=== PATIENT | female | born 1970 | race Caucasian/White ===

== ENCOUNTER 2016-08-29 20:34 | Inpatient (IN) ==
--- NOTE | 2016-08-29 20:56 | Emergency Department Note ---
Disposition Clinical Impression: Depression Qualifiers: Depression Type: unspecified Qualified Code(s): F32.9 - Major depressive disorder, single episode, unspecified Disposition: Admitted As Inpatient Condition: Good Referrals: NO,PCP [Primary Care Provider] - Forms: ED Satisfaction Letter Psych HPI - General Chief Complaint: ED Psychiatric Symptoms Stated Complaint: SI/UTI Time Seen by Provider: 08/29/16 20:44 Source: patient Nursing Notes Reviewed: Yes Vital Signs Reviewed: Yes - History of Present Illness HPI Narrative: 46-year-old female with a history of diabetes, hypertension, hyperlipidemia presents to the emergency Department with the chief complaint of depression, anxiety and thoughts of suicide. Patient states her depression has gotten out of control recently due to her many health problems. Denies any specific plan. She denies ever being evaluated for this in the hospital before. Denies any ingestions. Denies any drug or alcohol use. She reports some dysuria for the last 2-3 days and thinks she has a UTI. No fevers or chills, abdominal pain, nausea or vomiting. - Related Data Home Medications Medication Instructions Recorded Confirmed Alprazolam [Xanax 1 MG Tablet] 1 mg PO QID #0 03/17/15 05/11/16 Omeprazole [PriLOSEC] 40 mg PO DAILY 03/17/15 05/11/16 Zolpidem [Ambien] 10 mg PO HS 03/17/15 05/11/16 Albuterol Sulfate [Proair Hfa] 2 puff IH Q4H PRN 03/16/16 05/11/16 Venlafaxine HCl [Effexor Xr] 225 mg PO DAILY 05/11/16 05/11/16 Previous Rx's Medication Instructions Recorded Budesonide/Formoterol 160/4.5 2 puff IH BIDR #1 inhaler 12/08/15 [Symbicort 160/4.5] Gabapentin [Neurontin] 600 mg PO TID #90 tablet 12/08/15 Ipratropium/Albuterol Neb [Duoneb] 3 ml IH Q6H PRN #100 inhsol 03/17/16 Aspirin 81 mg PO DAILY #30 tab.chew 05/12/16 Atorvastatin [Lipitor] 40 mg PO HS #30 tablet 05/12/16 Isosorbide MONOnitrate (24 HR) 30 mg PO DAILY #30 tab.er.24h 05/12/16 [Imdur] Metoprolol [Lopressor] 25 mg PO BID #60 tablet 05/12/16 Hydrocodone/Acetaminophen [[place] 1 tab PO Q6H PRN #8 tab 06/29/16 5-325 Tablet] Nitrofurantoin (BID) [Macrobid] 100 mg PO BID 5 Days 07/10/16 Allergies Allergy/AdvReac Type Severity Reaction Status Date / Time clindamycin Allergy Hives Verified 08/29/16 20:35 ketorolac [From Toradol] AdvReac Migraine Verified 08/29/16 20:35 tramadol AdvReac Vomiting Verified 08/29/16 20:35 codeine Allergy Unknown Difficulty Uncoded 07/30/16 23:31 Breathing nsaids Allergy Unknown Difficulty Uncoded 07/30/16 23:31 Breathing All systems ED: reviewed and negative except as stated. 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 S1, S2. No murmurs, rubs or gallops. Respiratory: Breath sounds clear bilaterally. No wheezing, rales or rhonchi. No resp distress Abdomen: Mild suprapubic discomfort without any rebound, guarding or rigidity. No upper tenderness. No palpable organomegaly. Eyes: Conjunctiva clear HENT: Normocephalic, no signs of head injury. No oral mucosal lesions. Moist mucous membranes Neuro: Alert and oriented 3, stands and lives independently Musculoskeletal: No joint tenderness or swelling Skin: No signs of self-harm or IV drug use Psych: Somewhat depressed but otherwise Appropriate - General Limitations: no limitations General appearance: alert, in no apparent distress Course Course Narrative: No evidence of urinary tract infection. Patient has been calm and comfortable. I find no medical abnormalities. She was cleared by myself and attending physician. After being evaluated by the psychiatry team they recommended admission to help with her depression and hopelessness. Vital Signs Temperature 99.3 F 08/29/16 20:36 Pulse Rate 96 08/29/16 20:36 Respiratory Rate 20 08/29/16 20:36 Blood Pressure 127/86 08/29/16 20:36 O2 Sat by Pulse Oximetry 98 08/29/16 20:36 Temperature 99.3 F 08/29/16 20:36 Pulse Rate 96 08/29/16 20:36 Respiratory Rate 20 08/29/16 20:36 Blood Pressure 127/86 08/29/16 20:36 O2 Sat by Pulse Oximetry 98 08/29/16 20:36 Oxygen Delivery Oxygen Delivery Room Air Psych - Lab Data Result diagrams: 08/29/16 21:06 08/29/16 21:06 Lab Results 08/29/16 08/29/16 08/29/16 Range/Units 20:50 20:50 20:50 WBC (4.3-11.1) K/mcL RBC (3.82-4.97) M/mcL Hgb (11.5-15.4) g/dL Hct (35.3-44.9) % MCV (83.0-100.0) fL MCH (28.0-33.3) pg MCHC (31.6-35.5) g/dL RDW (11.5-14.5) % Plt Count (140-400) K/mcL MPV (9.4-12.4) fL Immature Gran % (0-4) % Seg Neutrophils % % Lymphocytes % % Monocytes % % Eosinophils % % Basophils % % Neutrophils # (1.6-8.9) K/mcL Lymphocytes # (0.6-4.6) K/mcL Monocytes # (0.0-1.3) K/mcL Eosinophils # (0.0-0.6) K/mcL Basophils # (0.0-0.2) K/mcL Sodium (136-145) mEq/L Potassium (3.5-4.5) mEq/L Chloride (98-109) mEq/L Carbon Dioxide (19-29) mEq/L BUN (7-20) mg/dL Creatinine (0.57-1.11) mg/dL Est GFR ( Amer) (> 60) Est GFR (Non-Af Amer) (> 60) BUN/Creatinine Ratio (6-26) Glucose (70-99) mg/dL Calculated Osmolality (280-300) Calcium (8.6-10.8) mg/dL Urine Color Yellow (Yellow) Urine Clarity Clear (Clear) Urine pH 6.0 (5.0-8.0) pH Units Ur Specific [place] 1.023 (1.010-1.025) Urine Protein Negative (Neg-Trace) mg/dL Urine Glucose (UA) Normal (Normal) mg/dL Urine Ketones Negative (Negative) mg/dL Urine Blood Negative (Negative) Urine Nitrite Negative (Negative) Urine Bilirubin Negative (Negative) Urine Urobilinogen Normal (Normal) mg/dL Ur Leukocyte Esterase Small H (Negative) Urine Microscopic RBC 3-5 H (0-3) per hpf Urine Microscopic WBC 3-5 H (0-3) per hpf Ur Squamous Epith Cells Many H (None-Few) per lpf Urine Bacteria None Seen (None-Few) per hpf Hyaline Casts None Seen (None-Few) per lpf Urine Test Negative (Negative) Salicylates (15-30) mg/dL Urine Opiates Screen Negative (Vkhizv=597) ng/mL Acetaminophen (10-30) mcg/mL Ur Barbiturates Screen Negative (Tdgfoc=076) ng/mL Ur Phencyclidine Scrn Negative (Cutoff=25) ng/mL Ur Amphetamines Screen Negative (Rvxpte=4356) ng/mL U Benzodiazepines Scrn Positive H (Ramcbi=973) ng/mL Urine Cocaine Screen Negative (Cutoff= 300) ng/mL U Marijuana (THC) Screen Negative (Cutoff = 50) ng/mL Ethyl Alcohol (0-10) mg/dL 08/29/16 08/29/16 08/29/16 Range/Units 21:06 21:06 21:06 WBC 11.0 (4.3-11.1) K/mcL RBC 4.06 (3.82-4.97) M/mcL Hgb 11.1 L (11.5-15.4) g/dL Hct 34.0 L (35.3-44.9) % MCV 83.7 (83.0-100.0) fL MCH 27.3 L (28.0-33.3) pg MCHC 32.6 (31.6-35.5) g/dL RDW 14.7 H (11.5-14.5) % Plt Count 367 (140-400) K/mcL MPV 10.1 (9.4-12.4) fL Immature Gran % 0.5 (0-4) % Seg Neutrophils % 63.4 % Lymphocytes % 29.5 % Monocytes % 5.5 % Eosinophils % 0.7 % Basophils % 0.4 % Neutrophils # 7.0 (1.6-8.9) K/mcL Lymphocytes # 3.3 (0.6-4.6) K/mcL Monocytes # 0.6 (0.0-1.3) K/mcL Eosinophils # 0.1 (0.0-0.6) K/mcL Basophils # 0.0 (0.0-0.2) K/mcL Sodium 136 (136-145) mEq/L Potassium 4.0 (3.5-4.5) mEq/L Chloride 101 (98-109) mEq/L Carbon Dioxide 24 (19-29) mEq/L BUN 21 H (7-20) mg/dL Creatinine 1.22 H (0.57-1.11) mg/dL Est GFR ( Amer) 57 L (> 60) Est GFR (Non-Af Amer) 47 L (> 60) BUN/Creatinine Ratio 17 (6-26) Glucose 136 H (70-99) mg/dL Calculated Osmolality 287 (280-300) Calcium 9.3 (8.6-10.8) mg/dL Urine Color (Yellow) Urine Clarity (Clear) Urine pH (5.0-8.0) pH Units Ur Specific [place] (1.010-1.025) Urine Protein (Neg-Trace) mg/dL Urine Glucose (UA) (Normal) mg/dL Urine Ketones (Negative) mg/dL Urine Blood (Negative) Urine Nitrite (Negative) Urine Bilirubin (Negative) Urine Urobilinogen (Normal) mg/dL Ur Leukocyte Esterase (Negative) Urine Microscopic RBC (0-3) per hpf Urine Microscopic WBC (0-3) per hpf Ur Squamous Epith Cells (None-Few) per lpf Urine Bacteria (None-Few) per hpf Hyaline Casts (None-Few) per lpf Urine Test (Negative) Salicylates < 5.0 L (15-30) mg/dL Urine Opiates Screen (Wrcogm=901) ng/mL Acetaminophen 1.0 L (10-30) mcg/mL Ur Barbiturates Screen (Riyehc=010) ng/mL Ur Phencyclidine Scrn (Cutoff=25) ng/mL Ur Amphetamines Screen (Iswcbx=2180) ng/mL U Benzodiazepines Scrn (Tvjmew=729) ng/mL Urine Cocaine Screen (Cutoff= 300) ng/mL U Marijuana (THC) Screen (Cutoff = 50) ng/mL Ethyl Alcohol < 10 (0-10) mg/dL Psychiatric Medical Clearance - Medical Clearance Checklist Does the patient have a NEW psychiatric condition?: No Any abnormalities indicating possible medical illness?: No Any history of medical issues?: Yes (Depression and anxiety) Medical History: No Social History Section defined Any abnormal vital signs prior to transfer?: No Current Vitals: Last Vital Signs Temp 99.3 F 08/29/16 20:36 Pulse 96 08/29/16 20:36 Resp 20 08/29/16 20:36 BP 127/86 08/29/16 20:36 Pulse Ox 98 08/29/16 20:36 Is the patient intoxicated or cognitively impaired?: No Psychiatric Lab Panel: Drug Levels and Toxicity 08/29/16 08/29/16 20:50 21:06 Urine Opiates Screen Negative Acetaminophen 1.0 L Ur Barbiturates Screen Negative Ur Phencyclidine Scrn Negative Ur Amphetamines Screen Negative U Benzodiazepines Scrn Positive H Urine Cocaine Screen Negative U Marijuana (THC) Screen Negative Ethyl Alcohol < 10 Any abnormalities on the physical exam?: No Any abnormal labs?: No Abnormal Labs: Abnormal lab results Hgb 11.1 g/dL (11.5-15.4) L 08/29/16 21:06 Hct 34.0 % (35.3-44.9) L 08/29/16 21:06 MCH 27.3 pg (28.0-33.3) L 08/29/16 21:06 RDW 14.7 % (11.5-14.5) H 08/29/16 21:06 BUN 21 mg/dL (7-20) H 08/29/16 21:06 Creatinine 1.22 mg/dL (0.57-1.11) H 08/29/16 21:06 Est GFR ( Amer) 57 (> 60) L 08/29/16 21:06 Est GFR (Non-Af Amer) 47 (> 60) L 08/29/16 21:06 Glucose 136 mg/dL (70-99) H 08/29/16 21:06 Ur Leukocyte Esterase Small (Negative) H 08/29/16 20:50 Urine Microscopic RBC 3-5 per hpf (0-3) H 08/29/16 20:50 Urine Microscopic WBC 3-5 per hpf (0-3) H 08/29/16 20:50 Ur Squamous Epith Cells Many per lpf (None-Few) H 08/29/16 20:50 Salicylates < 5.0 mg/dL (15-30) L 08/29/16 21:06 Acetaminophen 1.0 mcg/mL (10-30) L 08/29/16 21:06 U Benzodiazepines Scrn Positive ng/mL (Jjhgwb=055) H 08/29/16 20:50 Does the patient require durable medical equiptment?: No Is the patient ambulatory?: Yes Is the patient a fall risk?: No Has the patient been medically cleared?: Yes Any acute medical condition require Tx prior to transfer?: No Statement of Medical Clearance: I have evaluated the patient, reviewed diagnostic information, and certify that the patient's medical condition is sufficiently stable that transfer to the psychiatric unit does not pose a significant risk of deterioration.
[2016-08-29 21:03] LABS: Bilirubin,Urine Negative (Negative); Blood,Urine Negative (Negative); Clarity,Urine Clear (Clear); Color,Urine Yellow (Yellow); Glucose,Urine (UA) Normal (Normal); Ketones,Urine Negative (Negative); Leukocyte Esterase,Urine Small (Negative); Nitrite,Urine Negative (Negative); Protein,Urine Negative (Neg-Trace); Specific Gravity,Urine 1.023 (1.010-1.025); Urobilinogen,Urine Normal (Normal)
[2016-08-29 21:04] LABS: Bacteria,Urine None Seen per hpf (None-Few); Hyaline Casts,Urine None Seen per lpf (None-Few); Squamous Epithelial Cell,Urine Many per lpf (None-Few)
[2016-08-29 21:08] LABS: Amphetamine Screen,Urine Negative ng/mL (Cutoff=1000); Barbiturate Screen,Urine Negative ng/mL (Cutoff=200); Benzodiazepines Screen,Urine Positive ng/mL (Cutoff=200); Cannabinoid Screen,Urine Negative ng/mL (Cutoff = 50); Cocaine Screen,Urine Negative ng/mL (Cutoff= 300); Opiate Screen,Urine Negative ng/mL (Cutoff=300); Phencyclidine Screen,Urine Negative ng/mL (Cutoff=25)
[2016-08-29] MEDS ORDERED: hydrOXYzine pamoate 25 MG CAPSULE PO STA (21:16)
[2016-08-29 21:21] LABS: Basophils % 0.4 %; Eosinophils # 0.1 K/mcL (0.0-0.6); Eosinophils % 0.7 %; Hemoglobin 11.1 g/dL (11.5-15.4); Immature Granulocytes % 0.5 % (0-4); Lymphocytes # 3.3 K/mcL (0.6-4.6); Lymphocytes % 29.5 %; Mean Corpuscular HGB Conc 32.6 g/dL (31.6-35.5); Mean Corpuscular Hemoglobin 27.3 pg (28.0-33.3); Mean Corpuscular Volume 83.7 fL (83.0-100.0); Mean Platelet Volume 10.1 fL (9.4-12.4); Monocytes # 0.6 K/mcL (0.0-1.3); Monocytes % 5.5 %; Platelet Count 367 K/mcL (140-400); Red Blood Count 4.06 M/mcL (3.82-4.97); Red Cell Distribution Width 14.7 % (11.5-14.5); Segmented Neutrophils % 63.4 %
[2016-08-29 21:28] LABS: Calcium 9.3 mg/dL (8.6-10.8)
[2016-08-29 21:31] LABS: Ethanol < 10 mg/dL (0-10); Salicylate < 5.0 mg/dL (15-30)
--- NOTE | 2016-08-29 22:32 | Emergency Department Note ---
Disposition Clinical Impression: Depression Qualifiers: Depression Type: unspecified Qualified Code(s): F32.9 - Major depressive disorder, single episode, unspecified Disposition: Admitted As Inpatient Condition: Good Referrals: NO,PCP [Primary Care Provider] - Forms: ED Satisfaction Letter General Adult HPI - General Chief complaint: ED Psychiatric Symptoms Stated complaint: SI/UTI Time Seen by Provider: 08/29/16 20:44 Source: patient Limitations: no limitations - History of Present Illness Pain Scale: 6 - Related Data Home Medications Medication Instructions Recorded Confirmed Alprazolam [Xanax 1 MG Tablet] 1 mg PO QID #0 03/17/15 05/11/16 Omeprazole [PriLOSEC] 40 mg PO DAILY 03/17/15 05/11/16 Zolpidem [Ambien] 10 mg PO HS 03/17/15 05/11/16 Albuterol Sulfate [Proair Hfa] 2 puff IH Q4H PRN 03/16/16 05/11/16 Venlafaxine HCl [Effexor Xr] 225 mg PO DAILY 05/11/16 05/11/16 Previous Rx's Medication Instructions Recorded Budesonide/Formoterol 160/4.5 2 puff IH BIDR #1 inhaler 12/08/15 [Symbicort 160/4.5] Gabapentin [Neurontin] 600 mg PO TID #90 tablet 12/08/15 Ipratropium/Albuterol Neb [Duoneb] 3 ml IH Q6H PRN #100 inhsol 03/17/16 Aspirin 81 mg PO DAILY #30 tab.chew 05/12/16 Atorvastatin [Lipitor] 40 mg PO HS #30 tablet 05/12/16 Isosorbide MONOnitrate (24 HR) 30 mg PO DAILY #30 tab.er.24h 05/12/16 [Imdur] Metoprolol [Lopressor] 25 mg PO BID #60 tablet 05/12/16 Hydrocodone/Acetaminophen [[place] 1 tab PO Q6H PRN #8 tab 06/29/16 5-325 Tablet] Nitrofurantoin (BID) [Macrobid] 100 mg PO BID 5 Days 07/10/16 Allergies Allergy/AdvReac Type Severity Reaction Status Date / Time clindamycin Allergy Hives Verified 08/29/16 20:35 ketorolac [From Toradol] AdvReac Migraine Verified 08/29/16 20:35 tramadol AdvReac Vomiting Verified 08/29/16 20:35 codeine Allergy Unknown Difficulty Uncoded 07/30/16 23:31 Breathing nsaids Allergy Unknown Difficulty Uncoded 07/30/16 23:31 Breathing Constitutional: Denies: fever Cardiovascular: Denies: chest pain Respiratory: Denies: cough, dyspnea Gastrointestinal: Denies: abdominal pain, nausea, vomiting Genitourinary: Reports: urgency, dysuria, hematuria Integumentary: Denies: rash Neurological: Denies: headache Past Medical History - Past Medical History Medical history: Reports: asthma, COPD, coronary artery disease, diabetes, GERD , hyperlipidemia, hypertension, pulmonary embolus Surgical history: Reports: orthopedic, other Psychiatric history: Reports: anxiety, depression [employer] history: Reports: no [employer] history, polycystic ovary syndrome - Social History Smoking Status: Current every day smoker Smokeless Tobacco Status: No Alcohol use: Reports: none Drug use: Reports: none Physical Exam - General Limitations: no limitations General appearance: alert, in no apparent distress Course - Reevaluation(s) Reevaluation #1: I saw the patient with the resident, Dr. Zamora. Patient presents with anxiety, depression and suicidal ideations. No medical complaints. She is calm and cooperative for us. At this point she is medically cleared. She has already Seen psychiatry. We are waiting for their decision on disposition. Time: 22:32 Vital Signs Temperature 99.3 F 08/29/16 20:36 Pulse Rate 96 08/29/16 20:36 Respiratory Rate 20 08/29/16 20:36 Blood Pressure 127/86 08/29/16 20:36 O2 Sat by Pulse Oximetry 98 08/29/16 20:36 Temperature 99.3 F 08/29/16 20:36 Pulse Rate 96 08/29/16 20:36 Respiratory Rate 20 08/29/16 20:36 Blood Pressure 127/86 08/29/16 20:36 O2 Sat by Pulse Oximetry 98 08/29/16 20:36 Oxygen Delivery Oxygen Delivery Room Air Medical Decision Making - Lab Data Result diagrams: 08/29/16 21:06 08/29/16 21:06 Lab Results 08/29/16 08/29/16 08/29/16 Range/Units 20:50 20:50 20:50 WBC (4.3-11.1) K/mcL RBC (3.82-4.97) M/mcL Hgb (11.5-15.4) g/dL Hct (35.3-44.9) % MCV (83.0-100.0) fL MCH (28.0-33.3) pg MCHC (31.6-35.5) g/dL RDW (11.5-14.5) % Plt Count (140-400) K/mcL MPV (9.4-12.4) fL Immature Gran % (0-4) % Seg Neutrophils % % Lymphocytes % % Monocytes % % Eosinophils % % Basophils % % Neutrophils # (1.6-8.9) K/mcL Lymphocytes # (0.6-4.6) K/mcL Monocytes # (0.0-1.3) K/mcL Eosinophils # (0.0-0.6) K/mcL Basophils # (0.0-0.2) K/mcL Sodium (136-145) mEq/L Potassium (3.5-4.5) mEq/L Chloride (98-109) mEq/L Carbon Dioxide (19-29) mEq/L BUN (7-20) mg/dL Creatinine (0.57-1.11) mg/dL Est GFR ( Amer) (> 60) Est GFR (Non-Af Amer) (> 60) BUN/Creatinine Ratio (6-26) Glucose (70-99) mg/dL Calculated Osmolality (280-300) Calcium (8.6-10.8) mg/dL Urine Color Yellow (Yellow) Urine Clarity Clear (Clear) Urine pH 6.0 (5.0-8.0) pH Units Ur Specific [place] 1.023 (1.010-1.025) Urine Protein Negative (Neg-Trace) mg/dL Urine Glucose (UA) Normal (Normal) mg/dL Urine Ketones Negative (Negative) mg/dL Urine Blood Negative (Negative) Urine Nitrite Negative (Negative) Urine Bilirubin Negative (Negative) Urine Urobilinogen Normal (Normal) mg/dL Ur Leukocyte Esterase Small H (Negative) Urine Microscopic RBC 3-5 H (0-3) per hpf Urine Microscopic WBC 3-5 H (0-3) per hpf Ur Squamous Epith Cells Many H (None-Few) per lpf Urine Bacteria None Seen (None-Few) per hpf Hyaline Casts None Seen (None-Few) per lpf Urine Test Negative (Negative) Salicylates (15-30) mg/dL Urine Opiates Screen Negative (Hlsgtu=301) ng/mL Acetaminophen (10-30) mcg/mL Ur Barbiturates Screen Negative (Zeauio=741) ng/mL Ur Phencyclidine Scrn Negative (Cutoff=25) ng/mL Ur Amphetamines Screen Negative (Hqugka=6202) ng/mL U Benzodiazepines Scrn Positive H (Jooqyb=310) ng/mL Urine Cocaine Screen Negative (Cutoff= 300) ng/mL U Marijuana (THC) Screen Negative (Cutoff = 50) ng/mL Ethyl Alcohol (0-10) mg/dL 08/29/16 08/29/16 08/29/16 Range/Units 21:06 21:06 21:06 WBC 11.0 (4.3-11.1) K/mcL RBC 4.06 (3.82-4.97) M/mcL Hgb 11.1 L (11.5-15.4) g/dL Hct 34.0 L (35.3-44.9) % MCV 83.7 (83.0-100.0) fL MCH 27.3 L (28.0-33.3) pg MCHC 32.6 (31.6-35.5) g/dL RDW 14.7 H (11.5-14.5) % Plt Count 367 (140-400) K/mcL MPV 10.1 (9.4-12.4) fL Immature Gran % 0.5 (0-4) % Seg Neutrophils % 63.4 % Lymphocytes % 29.5 % Monocytes % 5.5 % Eosinophils % 0.7 % Basophils % 0.4 % Neutrophils # 7.0 (1.6-8.9) K/mcL Lymphocytes # 3.3 (0.6-4.6) K/mcL Monocytes # 0.6 (0.0-1.3) K/mcL Eosinophils # 0.1 (0.0-0.6) K/mcL Basophils # 0.0 (0.0-0.2) K/mcL Sodium 136 (136-145) mEq/L Potassium 4.0 (3.5-4.5) mEq/L Chloride 101 (98-109) mEq/L Carbon Dioxide 24 (19-29) mEq/L BUN 21 H (7-20) mg/dL Creatinine 1.22 H (0.57-1.11) mg/dL Est GFR ( Amer) 57 L (> 60) Est GFR (Non-Af Amer) 47 L (> 60) BUN/Creatinine Ratio 17 (6-26) Glucose 136 H (70-99) mg/dL Calculated Osmolality 287 (280-300) Calcium 9.3 (8.6-10.8) mg/dL Urine Color (Yellow) Urine Clarity (Clear) Urine pH (5.0-8.0) pH Units Ur Specific [place] (1.010-1.025) Urine Protein (Neg-Trace) mg/dL Urine Glucose (UA) (Normal) mg/dL Urine Ketones (Negative) mg/dL Urine Blood (Negative) Urine Nitrite (Negative) Urine Bilirubin (Negative) Urine Urobilinogen (Normal) mg/dL Ur Leukocyte Esterase (Negative) Urine Microscopic RBC (0-3) per hpf Urine Microscopic WBC (0-3) per hpf Ur Squamous Epith Cells (None-Few) per lpf Urine Bacteria (None-Few) per hpf Hyaline Casts (None-Few) per lpf Urine Test (Negative) Salicylates < 5.0 L (15-30) mg/dL Urine Opiates Screen (Qremrw=358) ng/mL Acetaminophen 1.0 L (10-30) mcg/mL Ur Barbiturates Screen (Ptdbiq=325) ng/mL Ur Phencyclidine Scrn (Cutoff=25) ng/mL Ur Amphetamines Screen (Foltek=5049) ng/mL U Benzodiazepines Scrn (Krsnyh=728) ng/mL Urine Cocaine Screen (Cutoff= 300) ng/mL U Marijuana (THC) Screen (Cutoff = 50) ng/mL Ethyl Alcohol < 10 (0-10) mg/dL Attestation Statement - Attestation Attestation: I, Dr. Hill, examined this patient [id number] and my medical decision- making was reviewed with Dr. Zamora, Resident Physician. I agree with the documented findings, disposition and treatment plan as described except to the extent set forth below. Please see my progress note for details.
[2016-08-29] MEDS ORDERED: *HR* LORazepam 1 MG TABLET PO PRN (22:40)
[2016-08-29] MEDS ORDERED: *HR* LORazepam 2 MG/ML VIAL IM PRN (22:40)
[2016-08-29] MEDS ORDERED: Haloperidol Lactate 5 MG/ML VIAL IM PRN (22:40)
[2016-08-29] MEDS ORDERED: MOM Conc 10 ML UD.LIQ PO PRN (22:40)
[2016-08-29] MEDS ORDERED: Mag Hydrox/Al Hydrox/Simeth 30 ML UDC PO PRN (22:40)
[2016-08-29] MEDS ORDERED: Ipratropium/Albuterol Neb 3 ML IH PRN (23:47)
[2016-08-29] MEDS: Famotidine 20 MG TABLET PO SCH (23:57)
[2016-08-29] MEDS: Gabapentin 300 MG CAPSULE PO SCH (23:57)
[2016-08-29] MEDS: ALPRAZolam 1 MG TABLET PO SCH (23:57)
[2016-08-30] MEDS: traZODone 50 MG TABLET PO PRN ×2 (00:47→20:45)
[2016-08-30] MEDS: Acetaminophen 325 MG TABLET PO PRN ×2 (00:47→20:45)
[2016-08-30] MEDS ORDERED: Ipratropium/Albuterol Neb 3 ML IH SCH (04:00)
[2016-08-30] MEDS: *HR* Metformin 500 MG TABLET PO SCH ×2 (07:02→17:01)
[2016-08-30] MEDS ORDERED: Venlafaxine XR (24 HR) 75 MG CAP.ER.24H PO SCH (09:00)
[2016-08-30] MEDS: Nicotine 21 MG PATCH.TD24 TD SCH (09:34)
[2016-08-30] MEDS: Gabapentin 300 MG CAPSULE PO SCH (09:35)
[2016-08-30] MEDS: ALPRAZolam 1 MG TABLET PO SCH ×3 (09:35→20:46)
[2016-08-30] MEDS: hydroCHLOROthiazide 25 MG TABLET PO SCH (09:36)
[2016-08-30] MEDS: Aspirin 81 MG TAB.CHEW PO SCH (09:36)
--- NOTE | 2016-08-30 13:21 | Psychiatry History & Physical ---
Date of Encounter: 08/30/16 Time of Encounter: 01:20 History of Present Illness Patient Stated Chief Complaint: Depression and suicidal ideations Medicare Admission Attestation: For traditional Medicare patients the provided hospital inpatient services are reasonable and necessary and in the case of services not specified as inpatient -only under 42 CFR 419.22 (n), that they are appropriately provided as inpatient services in accordance 42 CFR 412.3. For Critical Access Hospital the patient may reasonably be expected to be discharged or transferred to a hospital within 96 hours after admission to the Critical Access Hospital. Admitted From: Emergency Dept Plans for Post Hospital Care: Home History of Present Illness: Ms. Cervantes is a 46 year old female who was referred for hospitalization from emergency department where she presented with depression and suicidal ideations. Patient has been struggling from depression since she was 22 years old. Patient reported that she has had multiple bouts of depression in the past. Patient reported that her recent bout of depression started a month ago. She endorsed low mood and anhedonia hopelessness helplessness transmitting spells low energy levels in motivation and feelings of worthlessness and recurrent suicidal thoughts and ideations. Patient reported that she has been contemplating on ending her life and was unable to contract for safety. Since patient was fully alert to herself severely depressed hopeless and suicidal it was decided to hospitalize her [address] facility for safety concerns. Past Med Surg Social Fam HX - Past Medical History Medical history: asthma, COPD, coronary artery disease, diabetes, GERD, hyperlipidemia, hypertension, pulmonary embolus - Past Psychiatric History Psychiatric history: Reports: depression Past psychiatric history details: No previous psychiatric hospitalization. Patient has been struggling from depression since last 20 years or so. She is currently receiving outpatient treatment from [facility]. She is scheduled to see Dr. Wolf. She was a patient of Dr. schmidt. She has been prescribed Effexor and Xanax. Family psychiatric history: Yes Family Psychiatric History Details: Mother suffers from depression Family History of Suicide: None - Past Surgical History Surgical History: orthopedic, other - Social History Smoking Status: Current every day smoker Smokeless Tobacco Status: No Alcohol use: none Drug use: none Occupational status: unemployed Current living situation: Home, With Family Activity Level: Independent ambulation Recent Out of Country Travel Within the Last 8 Weeks: No Exposure or Possible Exposure to Illness During Travel: No Additional social history: Patient is from [place]. She reported good childhood. She has been and twice. She has 2 grownup children from her first marriage which are 27 and 24-year-old reported good relationship with them. She has to younger kids 7 and 9-year-old from her second marriage. She is currently unemployed and residing with her mother and her younger children. She denies any legal issues. - Family History Mother Adopted: No Family Member Ethnicity: Non- Living Status: Still Living Hx Family Cardiac Disorders: Yes Hx Family Respiratory Disorders: No Hx Family Cancer: No Hx Family GI Disorders: No Hx Family Endocrine Disorder: Yes (diabetes) Hx Family Neuromuscular Disorders: No Hx Family Neurologic Disorders: No Hx Family HEENT Disorders: No Hx Family Autoimmune Disorders: Yes Father Adopted: No Family Member Ethnicity: Non- Living Status: Still Living Hx Family Cardiac Disorders: Yes (hypertension) Hx Family Endocrine Disorder: Yes (diabetes) Hx Family Neurologic Disorders: Yes (alzheimers dx) Medications & Allergies Alprazolam [Xanax 1 MG Tablet] 1 mg PO QID #0 03/17/15 [History] Omeprazole [PriLOSEC] 40 mg PO DAILY 03/17/15 [History] Zolpidem [Ambien] 10 mg PO HS 03/17/15 [History] Budesonide/Formoterol 160/4.5 [Symbicort 160/4.5] 2 puff IH BIDR #1 inhaler 05/14 [Rx] Gabapentin [Neurontin] 600 mg PO TID #90 tablet 12/08/15 [Rx] Albuterol Sulfate [Proair Hfa] 2 puff IH Q4H PRN 03/16/16 [History] Ipratropium/Albuterol Neb [Duoneb] 3 ml IH Q6H PRN #100 inhsol 03/17/16 [Rx] Venlafaxine HCl [Effexor Xr] 225 mg PO DAILY 05/11/16 [History] Aspirin 81 mg PO DAILY #30 tab.chew 05/12/16 [Rx] Atorvastatin [Lipitor] 40 mg PO HS #30 tablet 05/12/16 [Rx] Isosorbide MONOnitrate (24 HR) [Imdur] 30 mg PO DAILY #30 tab.er.24h 05/12/16 [ Rx] Metoprolol [Lopressor] 25 mg PO BID #60 tablet 05/12/16 [Rx] Hydrochlorothiazide 12.5 mg PO DAILY 08/29/16 [History] Lisinopril [Zestril] 10 mg PO DAILY 08/29/16 [History] Metformin [Glucophage] 500 mg PO BIDWM 08/29/16 [History] Ranitidine HCl [Zantac] 300 mg PO HS 08/29/16 [History] Allergies clindamycin Allergy (Verified 08/29/16 20:35) Hives ketorolac [From Toradol] Adverse Reaction (Verified 08/29/16 20:35) Migraine tramadol Adverse Reaction (Verified 08/29/16 20:35) Vomiting codeine Allergy (Unknown, Uncoded 07/30/16 23:31) Difficulty Breathing nsaids Allergy (Unknown, Uncoded 07/30/16 23:31) Difficulty Breathing Review of Systems Psychiatric: Reports: depression, suicidal ideation, anhedonia, hopelessness Mental Status Exam Patient orientation: Yes Person, Yes Time, Yes Place Level of alertness: Alert Patient appearance: Unkempt, Disheveled Behavior: nervous, anxious, tearful Psychomotor activity: Slowed Eye contact: Maintains Eye Contact Mood description: Depressed, Anxious Affect description: constricted, tearful, dysphoric Speech pattern: Slowed Speech volume: Soft/Quiet Thought process: Linear, Goal Oriented Thought content: Yes Suicidal ideation, No Homicidal ideation, No Overt delusions Perceptual disturbances: No Auditory hallucinations, No Visual hallucinations Attention span: Capable of Focused Attention Memory description: Grossly Intact Patient reliability: Reliable Historian Intelligence estimate: Average Judgment: Limited Insight: Partial Results - Vital Signs Vital signs: Temp Pulse Resp BP Pulse Ox 97.2 F L 107 20 145/106 98 08/30/16 09:00 08/30/16 09:00 08/30/16 09:00 08/30/16 09:00 08/29/16 20:36 - Labs Labs: Laboratory Last Values WBC 11.0 K/mcL (4.3-11.1) 08/29/16 21:06 RBC 4.06 M/mcL (3.82-4.97) 08/29/16 21:06 Hgb 11.1 g/dL (11.5-15.4) L 08/29/16 21:06 Hct 34.0 % (35.3-44.9) L 08/29/16 21:06 MCV 83.7 fL (83.0-100.0) 08/29/16 21:06 MCH 27.3 pg (28.0-33.3) L 08/29/16 21:06 MCHC 32.6 g/dL (31.6-35.5) 08/29/16 21:06 RDW 14.7 % (11.5-14.5) H 08/29/16 21:06 Plt Count 367 K/mcL (140-400) 08/29/16 21:06 MPV 10.1 fL (9.4-12.4) 08/29/16 21:06 Immature Gran % 0.5 % (0-4) 08/29/16 21:06 Seg Neutrophils % 63.4 % 08/29/16 21:06 Lymphocytes % 29.5 % 08/29/16 21:06 Monocytes % 5.5 % 08/29/16 21:06 Eosinophils % 0.7 % 08/29/16 21:06 Basophils % 0.4 % 08/29/16 21:06 Neutrophils # 7.0 K/mcL (1.6-8.9) 08/29/16 21:06 Lymphocytes # 3.3 K/mcL (0.6-4.6) 08/29/16 21:06 Monocytes # 0.6 K/mcL (0.0-1.3) 08/29/16 21:06 Eosinophils # 0.1 K/mcL (0.0-0.6) 08/29/16 21:06 Basophils # 0.0 K/mcL (0.0-0.2) 08/29/16 21:06 Sodium 136 mEq/L (136-145) 08/29/16 21:06 Potassium 4.0 mEq/L (3.5-4.5) 08/29/16 21:06 Chloride 101 mEq/L (98-109) 08/29/16 21:06 Carbon Dioxide 24 mEq/L (19-29) 08/29/16 21:06 BUN 21 mg/dL (7-20) H 08/29/16 21:06 Creatinine 1.22 mg/dL (0.57-1.11) H 08/29/16 21:06 Est GFR ( Amer) 57 (> 60) L 08/29/16 21:06 Est GFR (Non-Af Amer) 47 (> 60) L 08/29/16 21:06 BUN/Creatinine Ratio 17 (6-26) 08/29/16 21:06 Glucose 136 mg/dL (70-99) H 08/29/16 21:06 POC Glucose 146 (58-89) H 08/30/16 07:01 Calculated Osmolality 287 (280-300) 08/29/16 21:06 Calcium 9.3 mg/dL (8.6-10.8) 08/29/16 21:06 Urine Color Yellow (Yellow) 08/29/16 20:50 Urine Clarity Clear (Clear) 08/29/16 20:50 Urine pH 6.0 pH Units (5.0-8.0) 08/29/16 20:50 Ur Specific [place] 1.023 (1.010-1.025) 08/29/16 20:50 Urine Protein Negative mg/dL (Neg-Trace) 08/29/16 20:50 Urine Glucose (UA) Normal mg/dL (Normal) 08/29/16 20:50 Urine Ketones Negative mg/dL (Negative) 08/29/16 20:50 Urine Blood Negative (Negative) 08/29/16 20:50 Urine Nitrite Negative (Negative) 08/29/16 20:50 Urine Bilirubin Negative (Negative) 08/29/16 20:50 Urine Urobilinogen Normal mg/dL (Normal) 08/29/16 20:50 Ur Leukocyte Esterase Small (Negative) H 08/29/16 20:50 Urine Microscopic RBC 3-5 per hpf (0-3) H 08/29/16 20:50 Urine Microscopic WBC 3-5 per hpf (0-3) H 08/29/16 20:50 Ur Squamous Epith Cells Many per lpf (None-Few) H 08/29/16 20:50 Urine Bacteria None Seen per hpf (None-Few) 08/29/16 20:50 Hyaline Casts None Seen per lpf (None-Few) 08/29/16 20:50 Urine Test Negative (Negative) 08/29/16 20:50 Salicylates < 5.0 mg/dL (15-30) L 08/29/16 21:06 Urine Opiates Screen Negative ng/mL (Zleuto=786) 08/29/16 20:50 Acetaminophen 1.0 mcg/mL (10-30) L 08/29/16 21:06 Ur Barbiturates Screen Negative ng/mL (Jqmafw=713) 08/29/16 20:50 Ur Phencyclidine Scrn Negative ng/mL (Cutoff=25) 08/29/16 20:50 Ur Amphetamines Screen Negative ng/mL (Ykzkav=1386) 08/29/16 20:50 U Benzodiazepines Scrn Positive ng/mL (Zyfnqf=839) H 08/29/16 20:50 Urine Cocaine Screen Negative ng/mL (Cutoff= 300) 08/29/16 20:50 U Marijuana (THC) Screen Negative ng/mL (Cutoff = 50) 08/29/16 20:50 Ethyl Alcohol < 10 mg/dL (0-10) 08/29/16 21:06 Assessment and Plan (1) MDD (major depressive disorder), recurrent severe, without psychosis Current visit: Yes Status: Acute Plan: Admit inpatient for safety and stabilization, Close observation, Suicide Precautions per unit protocol, Encourage participation in unit milieu, Group Therapy, Monitor sleep, Monitor appetite Additional Plan: After reviewing the symptom diagnosis treatment plan and explaining the risks and benefits side effects alternatives to treatment and consequences of not receiving any treatment and after getting the informed consent from the patient and her medications will be adjusted as follows patient's Effexor will be increased to 150 mg twice a day for her depression. We will decrease patient 's Xanax 1 mg 3 times a day. Patient's Neurontin will be increased to 800 mg 3 times a day. Patient will be continued on her antihypertensive and her medications for hyperlipidemia and DM. Risks, benefits, side effects, alternatives discussed w/pt: Yes Patient agreeable to treatment: Yes Plans for Post Hospital Care: Home Estimated Length of Stay (Days): 3
[2016-08-30] MEDS: hydrOXYzine pamoate 25 MG CAPSULE PO PRN ×2 (13:29→19:31)
[2016-08-30] MEDS: Gabapentin 400 MG CAPSULE PO SCH ×2 (14:56→20:45)
[2016-08-30] MEDS: Famotidine 20 MG TABLET PO SCH (20:46)
[2016-08-30] MEDS: Venlafaxine XR (24 HR) 150 MG CAP.ER.24H PO SCH (20:46)
[2016-08-31] MEDS: *HR* Metformin 500 MG TABLET PO SCH (07:09)
[2016-08-31] MEDS: ALPRAZolam 1 MG TABLET PO SCH (09:24)
[2016-08-31] MEDS: Aspirin 81 MG TAB.CHEW PO SCH (09:25)
[2016-08-31] MEDS: Gabapentin 400 MG CAPSULE PO SCH (09:25)
[2016-08-31] MEDS: hydroCHLOROthiazide 25 MG TABLET PO SCH (09:26)
[2016-08-31] MEDS: Venlafaxine XR (24 HR) 150 MG CAP.ER.24H PO SCH (09:26)
[2016-08-31] MEDS: Nicotine 21 MG PATCH.TD24 TD SCH (09:27)
[2016-08-31 10:00] VITALS: BP 141/96
--- NOTE | 2016-08-31 11:17 | Discharge Summary ---
Date of Encounter: 08/31/16 Time of Encounter: 10:35 Diagnosis - Discharge Diagnosis (1) MDD (major depressive disorder), recurrent severe, without psychosis Status: Acute Medications - Discharge Medications Prescriptions: Gabapentin [Neurontin] 800 mg PO TID #90 capsule Venlafaxine XR (24 HR) [Effexor Xr] 150 mg PO BID #60 cap.er.24h Omeprazole [PriLOSEC] 40 mg PO DAILY 03/17/15 [History] Zolpidem [Ambien] 10 mg PO HS 03/17/15 [History] Budesonide/Formoterol 160/4.5 [Symbicort 160/4.5] 2 puff IH BIDR #1 inhaler 05/14 [Rx] Albuterol Sulfate [Proair Hfa] 2 puff IH Q4H PRN 03/16/16 [History] Ipratropium/Albuterol Neb [Duoneb] 3 ml IH Q6H PRN #100 inhsol 03/17/16 [Rx] Aspirin 81 mg PO DAILY #30 tab.chew 05/12/16 [Rx] Atorvastatin [Lipitor] 40 mg PO HS #30 tablet 05/12/16 [Rx] Isosorbide MONOnitrate (24 HR) [Imdur] 30 mg PO DAILY #30 tab.er.24h 05/12/16 [ Rx] Metoprolol [Lopressor] 25 mg PO BID #60 tablet 05/12/16 [Rx] Hydrochlorothiazide 12.5 mg PO DAILY 08/29/16 [History] Lisinopril [Zestril] 10 mg PO DAILY 08/29/16 [History] Metformin [Glucophage] 500 mg PO BIDWM 08/29/16 [History] Ranitidine HCl [Zantac] 300 mg PO HS 08/29/16 [History] Alprazolam [Xanax 1 MG Tablet] 1 mg PO TID tablet 08/31/16 [Rx] Gabapentin [Neurontin] 800 mg PO TID #90 capsule 08/31/16 [Rx] Venlafaxine XR (24 HR) [Effexor Xr] 150 mg PO BID #60 cap.er.24h 08/31/16 [Rx] Allergies clindamycin Allergy (Verified 08/29/16 20:35) Hives ketorolac [From Toradol] Adverse Reaction (Verified 08/29/16 20:35) Migraine tramadol Adverse Reaction (Verified 08/29/16 20:35) Vomiting codeine Allergy (Unknown, Uncoded 07/30/16 23:31) Difficulty Breathing nsaids Allergy (Unknown, Uncoded 07/30/16 23:31) Difficulty Breathing Provider Date of admission: 08/29/16 22:32 Primary care physician: PCP MAYRA Discharging clinician: Vickie Cummings Assessment and Plan - Patient/Caregiver Discharge Instructions Activity: resume usual activities as tolerated Diet: regular diet Additional Instructions: Patient does have a follow-up appointment scheduled with Dr. Castaneda at [facility] tomorrow 09/01 - Follow up Plan Follow up with: MAYRA,PCP [Primary Care Provider] - Functional capacity at discharge: independent ambulation Overall status at discharge: Stable Disposition: Home, Self-Care Hospital Course Hospital course: Ms. Cervantes is a 46 year old female who was referred for hospitalization from emergency department where she presented with depression and suicidal ideations. Patient has extensive history of depression and has been noticing a relapse of depression. After reviewing the symptom diagnosis and treatment planning Spring that is minimal side effects alternative treatment consonants of no treatment and getting informed consent from the patient's patient's medications were adjusted as follows patient's Effexor was increased to 150 mg twice a day from 225 mg daily for her depression Patient's Neurontin was increased to 800 mg 3 times a day for chronic pain restlessness and anxiety. Patient's Xanax was decreased to 1 mg 3 times a day from 4 times a day. Patient was encouraged to attend in particular in groups and activities on the unit which she did. Patient's other medications which she has been taking for her hypertension diabetes GERD and hypercholesterolemia was continued as she was taking it prior to admission. Patient responded well to the therapeutic milieu started attending groups and participating in activities. Her mood became more bright and cheerful. Her hopelessness helplessness and suicidal ideation subsided. She was able to verbalize a safety plan and was future oriented at the time of discharge. She tolerated medication changes very well did not report any side effects. Overall patient's discharge condition was stable - Time Spent with Patient Total time spent providing and/or coordinating discharge services: Less than 30 minutes Quality - Multiple Antipsychotics Patient discharged on 2 or more antipsychotic medications: No Procedures - Procedures Procedures: Medication Management, Crisis Stabilization, Supportive Therapy, Group Therapy, Psychoeducational Therapy Mental Status Exam - Mental Status Exam Patient orientation: Yes Person, Yes Time, Yes Place Level of alertness: Alert Patient appearance: Unkempt, Disheveled Behavior: calm, cooperative Psychomotor activity: Normal Eye contact: Maintains Eye Contact Mood description: Euthymic/stable Affect description: congruent with mood, full range Speech pattern: Normal rate, Normal rhythm, Normal tone, Appropriate Speech Volume: Normal Thought process: Intact, Logical, Linear, Goal Oriented Thought Content: No Suicidal ideation, No Homicidal ideation, No Overt delusions Perceptual Disturbances: No Auditory hallucinations, No Visual hallucinations Judgment: Good Insight: Partial
--- NOTE | 2016-09-01 07:20 | Electrocardiograph Report ---
[place] [id number] Test Date: 2016-08-30 Pat Name: Krystle Cervantes Department: 101 Room: 1A22 Gender: F Ambulatory Service Representative: : 1970 Requested By: Vickie Cummings Order Number: [id number] Reading MD: Chalino Deleon MD Measurements Intervals [place] Rate: 94 P: 12 TX: 194 QRS: -3 QRSD: 101 T: 108 QT: 361 QTc: 412 Interpretive Statements SINUS RHYTHM LEFT VENTRICULAR HYPERTROPHY AND ST-T CHANGE Electronically Signed On 09-01-2016 7:18:44 EST by Chalino Deleon MD
== END 2016-08-31 11:50 | disposition home or self-care (01) | DRG 751 ==
LOC: EMEROO 20:34 → 1ANU 22:32
PROVIDERS: ADMIT Psychiatry & Neurology Psychiatry; ATTEND Psychiatry & Neurology Psychiatry

== ENCOUNTER 2016-10-27 19:09 | Observation (INO) ==
[2016-10-27] MEDS ORDERED: 0.9 % Sodium Chloride 1,000 ML IVC ONE (19:44)
[2016-10-27] MEDS ORDERED: Metoclopramide 10 MG/2 ML VIAL IVP ONE (19:44)
--- NOTE | 2016-10-27 19:56 | Emergency Department Note ---
Disposition Forms: ED Satisfaction Letter Animal Bite HPI - General Chief Complaint: ED Neuro Symptoms/Deficit Stated Complaint: L Side Facial Numbness Time Seen by Provider: 10/27/16 19:24 Source: patient, EMS Limitations: no limitations - Related Data Home Medications Medication Instructions Recorded Confirmed Omeprazole [PriLOSEC] 40 mg PO DAILY 03/17/15 08/29/16 Zolpidem [Ambien] 10 mg PO HS 03/17/15 08/29/16 Albuterol Sulfate [Proair Hfa] 2 puff IH Q4H PRN 03/16/16 08/29/16 Hydrochlorothiazide 12.5 mg PO DAILY 08/29/16 08/29/16 Lisinopril [Zestril] 10 mg PO DAILY 08/29/16 08/29/16 Metformin [Glucophage] 500 mg PO BIDWM 08/29/16 08/29/16 Ranitidine HCl [Zantac] 300 mg PO HS 08/29/16 08/29/16 Previous Rx's Medication Instructions Recorded Budesonide/Formoterol 160/4.5 2 puff IH BIDR #1 inhaler 12/08/15 [Symbicort 160/4.5] Ipratropium/Albuterol Neb [Duoneb] 3 ml IH Q6H PRN #100 inhsol 03/17/16 Aspirin 81 mg PO DAILY #30 tab.chew 05/12/16 Atorvastatin [Lipitor] 40 mg PO HS #30 tablet 05/12/16 Isosorbide MONOnitrate (24 HR) 30 mg PO DAILY #30 tab.er.24h 05/12/16 [Imdur] Metoprolol [Lopressor] 25 mg PO BID #60 tablet 05/12/16 Alprazolam [Xanax 1 MG Tablet] 1 mg PO TID tablet 08/31/16 Gabapentin [Neurontin] 800 mg PO TID #90 capsule 08/31/16 Venlafaxine XR (24 HR) [Effexor Xr] 150 mg PO BID #60 cap.er.24h 08/31/16 Dicyclomine [Bentyl] 10 mg PO DAILY PRN #30 capsule 09/23/16 Ondansetron ODT [Zofran ODT] 4 mg SL Q6HR #14 tab.rapdis 03/28/17 Allergies Allergy/AdvReac Type Severity Reaction Status Date / Time clindamycin Allergy Hives Verified 09/23/16 18:58 ketorolac [From Toradol] AdvReac Migraine Verified 09/23/16 18:58 tramadol AdvReac Vomiting Verified 09/23/16 18:58 codeine Allergy Unknown Difficulty Uncoded 07/30/16 23:31 Breathing nsaids Allergy Unknown Difficulty Uncoded 07/30/16 23:31 Breathing Past Medical History - Past Medical History Medical history: Reports: asthma, CHF, COPD, coronary artery disease, diabetes, GERD, hyperlipidemia, hypertension, pulmonary embolus Surgical history: Reports: orthopedic, other Psychiatric history: Reports: depression [employer] history: Reports: polycystic ovary syndrome - Social History Smoking Status: Current every day smoker Smokeless Tobacco Status: No Alcohol use: Reports: none Drug use: Reports: none Physical Exam - General Limitations: no limitations General appearance: alert, in no apparent distress Course Vital Signs Temperature 99.2 F 10/27/16 19:12 Pulse Rate 85 10/27/16 19:12 Respiratory Rate 15 10/27/16 19:12 Blood Pressure 109/87 10/27/16 19:12 O2 Sat by Pulse Oximetry 96 10/27/16 19:12 Temperature 99.2 F 10/27/16 19:12 Pulse Rate 85 10/27/16 19:12 Respiratory Rate 15 10/27/16 19:12 Blood Pressure 109/87 10/27/16 19:12 O2 Sat by Pulse Oximetry 96 10/27/16 19:12 Oxygen Delivery Oxygen Delivery Room Air
--- NOTE | 2016-10-27 20:14 | Emergency Department Note ---
Disposition Clinical Impression: Transient cerebral ischemia Headache Qualifiers: Headache type: unspecified Headache chronicity pattern: unspecified pattern Intractability: not intractable Qualified Code(s): R51 - Headache Disposition: Admitted As Inpatient Condition: Good Time of Disposition: 20:16 General Adult HPI - General Chief complaint: ED Neuro Symptoms/Deficit Stated complaint: L Side Facial Numbness Time Seen by Provider: 10/27/16 19:24 Source: patient, EMS Limitations: no limitations Nursing Notes Reviewed: Yes Vital Signs Reviewed: Yes - History of Present Illness HPI Narrative: 46-year-old female presents with chief complaint of headache. Patient states she had right-sided facial paresthesias yesterday which resolved without intervention. Patient also reports her blood pressure was mildly elevated to 144 systolic this morning as well as elevation of her blood glucose level to 240. Patient states she took her metoprolol and metformin prior to presenting to the emergency department. Repeat Blood pressure and fingerstick blood sugar in the emergency department are within normal limits. Patient reports the headache started at around 1 PM, just about 6 hours prior to arrival. Patient has had similar headaches in the past however this one is different in that it is completely right-sided. She has mild photophobia but denies increased pain with loud noises. No focal neurological deficits noted by the patient prior to arrival. History of stroke in the past. No history of brain aneurysm and personal or family history. Patient denies recent trauma. Pain Scale: 6 - Related Data Home Medications Medication Instructions Recorded Confirmed Omeprazole [PriLOSEC] 40 mg PO DAILY 03/17/15 10/28/16 Albuterol Sulfate [Proair Hfa] 2 puff IH Q4H PRN 03/16/16 10/28/16 Hydrochlorothiazide 12.5 mg PO DAILY 08/29/16 10/28/16 Lisinopril [Zestril] 10 mg PO DAILY 08/29/16 10/28/16 Metformin [Glucophage] 500 mg PO BID 08/29/16 10/28/16 Ondansetron ODT [Zofran ODT] 4 mg SL PRN PRN 10/28/16 10/28/16 Venlafaxine XR (24 HR) [Effexor Xr] 300 mg PO DAILY 10/28/16 10/28/16 Previous Rx's Medication Instructions Recorded Budesonide/Formoterol 160/4.5 2 puff IH BIDR #1 inhaler 12/08/15 [Symbicort 160/4.5] Ipratropium/Albuterol Neb [Duoneb] 3 ml IH Q6H PRN #100 inhsol 03/17/16 Aspirin 81 mg PO DAILY #30 tab.chew 05/12/16 Atorvastatin [Lipitor] 40 mg PO HS #30 tablet 05/12/16 Metoprolol [Lopressor] 25 mg PO BID #60 tablet 05/12/16 Alprazolam [Xanax 1 MG Tablet] 1 mg PO TID tablet 08/31/16 Gabapentin [Neurontin] 800 mg PO TID #90 capsule 08/31/16 Allergies Allergy/AdvReac Type Severity Reaction Status Date / Time clindamycin Allergy Hives Verified 09/23/16 18:58 ketorolac [From Toradol] AdvReac Migraine Verified 09/23/16 18:58 tramadol AdvReac Vomiting Verified 09/23/16 18:58 codeine Allergy Unknown Difficulty Uncoded 07/30/16 23:31 Breathing nsaids Allergy Unknown Difficulty Uncoded 07/30/16 23:31 Breathing All systems ED: reviewed and negative except as stated. Constitutional: Reports: fever Cardiovascular: Denies: chest pain, palpitations Respiratory: Denies: cough, dyspnea, wheezes Gastrointestinal: Reports: nausea. Denies: abdominal pain, vomiting, diarrhea Neurological: Reports: headache, paresthesias. Denies: weakness, numbness Past Medical History - Past Medical History Attestation: Yes The following information was validated with the patient. 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 Bowel sounds present Neuro: A&O to person, place, time and situation. No focal deficits noted on exam. Finger to nose testing and [id number] testing intact bilaterally. Cranial nerve exam intact to examination. No sensory deficits on exam. Psychiatric: cooperative and appropriate mood and affect. - General Limitations: no limitations General appearance: alert, in no apparent distress Course Vital Signs Temperature 99.2 F 10/27/16 19:12 Pulse Rate 85 10/27/16 19:12 Respiratory Rate 15 10/27/16 19:12 Blood Pressure 109/87 10/27/16 19:12 O2 Sat by Pulse Oximetry 96 10/27/16 19:12 Temperature 97.4 F L 10/28/16 07:00 Pulse Rate 86 10/28/16 07:00 Respiratory Rate 18 10/28/16 07:00 Blood Pressure 140/71 10/28/16 07:00 O2 Sat by Pulse Oximetry 97 10/28/16 07:00 Oxygen Delivery Oxygen Delivery Room Air Medical Decision Making - [facility] Narrative Medical decision making narrative: CT of the head was negative for intracranial hemorrhage or large mass. Patient given Reglan, Benadryl, IV fluids in the emergency department with moderate improvement of symptoms. At 10:22 PM the patient developed return of right-sided facial paresthesias and subjective weakness of the right upper and right lower extremity. On my physical exam I am able to appreciate a 4 out of 5 strength of the right lower extremity compared to 5 out of 5 of the left lower extremity. 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 Patient has sensation to light touch to the bilateral face but states that it feels "different". I spoke with the [facility] neurologists who agreed that the patient has a small NIH of 2 based on my exam and is not a candidate for TPA. Patient was given aspirin in the emergency department and admitted to the hospital for MRI. - Medical Records Medical records reviewed: Yes I reviewed the patient's medical records. - Lab Data Lab results reviewed: Yes I reviewed the patient's lab results. Result diagrams: 10/28/16 03:47 10/28/16 03:47 Lab Results 10/27/16 10/27/16 10/27/16 Range/Units 19:17 23:00 23:00 WBC 10.8 (4.3-11.1) K/mcL RBC 3.93 (3.82-4.97) M/mcL Hgb 10.4 L (11.5-15.4) g/dL Hct 33.5 L (35.3-44.9) % MCV 85.2 (83.0-100.0) fL MCH 26.5 L (28.0-33.3) pg MCHC 31.0 L (31.6-35.5) g/dL RDW 16.3 H (11.5-14.5) % Plt Count 402 H (140-400) K/mcL MPV 9.3 L (9.4-12.4) fL Immature Gran % 0.6 (0-4) % Seg Neutrophils % 70.8 % Lymphocytes % 22.6 % Monocytes % 4.7 % Eosinophils % 1.0 % Basophils % 0.3 % Neutrophils # 7.7 (1.6-8.9) K/mcL Lymphocytes # 2.4 (0.6-4.6) K/mcL Monocytes # 0.5 (0.0-1.3) K/mcL Eosinophils # 0.1 (0.0-0.6) K/mcL Basophils # 0.0 (0.0-0.2) K/mcL Nucleated RBCs/100 WBC 0.2 H (0) /100 WBC PT 12.3 H (9.4-12.1) Seconds INR 1.1 APTT 28.1 (26.0-36.0) Seconds Sodium (136-145) mEq/L Potassium (3.5-4.5) mEq/L Chloride (98-109) mEq/L Carbon Dioxide (19-29) mEq/L BUN (7-20) mg/dL Creatinine (0.57-1.11) mg/dL Est GFR ( Amer) (> 60) Est GFR (Non-Af Amer) (> 60) BUN/Creatinine Ratio (6-26) Glucose (70-99) mg/dL POC Glucose 118 H (58-89) Calculated Osmolality (280-300) Calcium (8.6-10.8) mg/dL Troponin I (0-0.03) ng/mL 10/27/16 10/27/16 Range/Units 23:00 23:00 WBC (4.3-11.1) K/mcL RBC (3.82-4.97) M/mcL Hgb (11.5-15.4) g/dL Hct (35.3-44.9) % MCV (83.0-100.0) fL MCH (28.0-33.3) pg MCHC (31.6-35.5) g/dL RDW (11.5-14.5) % Plt Count (140-400) K/mcL MPV (9.4-12.4) fL Immature Gran % (0-4) % Seg Neutrophils % % Lymphocytes % % Monocytes % % Eosinophils % % Basophils % % Neutrophils # (1.6-8.9) K/mcL Lymphocytes # (0.6-4.6) K/mcL Monocytes # (0.0-1.3) K/mcL Eosinophils # (0.0-0.6) K/mcL Basophils # (0.0-0.2) K/mcL Nucleated RBCs/100 WBC (0) /100 WBC PT (9.4-12.1) Seconds INR APTT (26.0-36.0) Seconds Sodium 138 (136-145) mEq/L Potassium 3.7 (3.5-4.5) mEq/L Chloride 102 (98-109) mEq/L Carbon Dioxide 26 (19-29) mEq/L BUN 12 (7-20) mg/dL Creatinine 1.01 (0.57-1.11) mg/dL Est GFR ( Amer) > 60 (> 60) Est GFR (Non-Af Amer) 59 L (> 60) BUN/Creatinine Ratio 12 (6-26) Glucose 122 H (70-99) mg/dL POC Glucose (58-89) Calculated Osmolality 287 (280-300) Calcium 9.4 (8.6-10.8) mg/dL Troponin I 0.00 (0-0.03) ng/mL - Radiology Data Radiology results reviewed: Yes I reviewed the patient's radiology results.
[2016-10-27] MEDS ORDERED: methylPREDNISolone 125 MG/2 ML VIAL IVP ONE (21:31)
[2016-10-27] MEDS ORDERED: Aspirin 81 MG TAB.CHEW PO ONE (22:27)
[2016-10-27 23:10] LABS: Basophils % 0.3 %; Eosinophils # 0.1 K/mcL (0.0-0.6); Hematocrit 33.5 % (35.3-44.9); Hemoglobin 10.4 g/dL (11.5-15.4); Immature Granulocytes % 0.6 % (0-4); Lymphocytes # 2.4 K/mcL (0.6-4.6); Lymphocytes % 22.6 %; Mean Corpuscular Hemoglobin 26.5 pg (28.0-33.3); Mean Corpuscular Volume 85.2 fL (83.0-100.0); Mean Platelet Volume 9.3 fL (9.4-12.4); Monocytes # 0.5 K/mcL (0.0-1.3); Monocytes % 4.7 %; Neutrophils # 7.7 K/mcL (1.6-8.9); Nucleated Red Blood Cells 0.2 /100 WBC (0); Platelet Count 402 K/mcL (140-400); Red Blood Count 3.93 M/mcL (3.82-4.97); Red Cell Distribution Width 16.3 % (11.5-14.5); Segmented Neutrophils % 70.8 %
[2016-10-27 23:16] LABS: INR 1.1; Prothrombin Time 12.3 Seconds (9.4-12.1)
[2016-10-27 23:19] LABS: Activated Partial Thrombo Time 28.1 Seconds (26.0-36.0)
[2016-10-27 23:29] LABS: BUN/Creatinine Ratio 12 (6-26); Blood Urea Nitrogen 12 mg/dL (7-20); Calcium 9.4 mg/dL (8.6-10.8); Carbon Dioxide 26 mEq/L (19-29); Chloride 102 mEq/L (98-109); Glucose 122 mg/dL (70-99); Osmolality,Calculated 287 (280-300); Potassium 3.7 mEq/L (3.5-4.5); Sodium 138 mEq/L (136-145); eGFR For African Americans > 60 (> 60); eGFR For Non-African Americans 59 (> 60)
[2016-10-28] MEDS ORDERED: Naloxone 0.4 MG/ML INJ IVP PRN (03:29)
[2016-10-28] MEDS ORDERED: Acetaminophen 325 MG TABLET PO PRN (03:29)
--- NOTE | 2016-10-28 03:37 | Internal Med History&Physical ---
<No Freitas - Last Filed: 10/28/16 05:25> Date of Encounter: 10/28/16 Time of Encounter: 03:00 Assessment and Plan (1) Stroke-like symptoms Current visit: Yes Status: Acute - With reported right facial numbness and right upper and extremity weakness. - CT head found no acute intracranial abnormality. - Patient does have risk factors such as DM, HTN, hyperlipidemia and smoking history. - Will have further stroke work-up including brain MRI, bilateral carotid US and echocardiogram. - Continue aspirin and statin. - PT/OT to evaluate and treat. - Closely monitor with telemetry and routine neuro check. - If stroke work-up is negative but symptoms persist, patient may benefit from further outpatient neurology work-up. (2) Anxiety Current visit: No Status: Chronic - Patient is on Xanax 1 mg PO TID prn anxiety, which is currently prescribed by her psychiatrist according to [facility]. - Continue Effexor and prn Xanax. (3) CAD (coronary artery disease) Current visit: No Status: Chronic - S/p cardiac cath but no stent placed. - Continue aspirin, simvastatin, metoprolol. Qualifiers: Coronary Disease-Associated Artery/Lesion type: [place] artery [place] vs. transplanted heart: [place] heart Associated angina: angina presence unspecified Qualified Code(s): I25.10 - Atherosclerotic heart disease of [place] coronary artery without angina pectoris (4) COPD (chronic obstructive pulmonary disease) Current visit: No Status: Chronic - Continue Symbicort and bronchodilator prn Qualifiers: COPD type: unspecified COPD Qualified Code(s): J44.9 - Chronic obstructive pulmonary disease, unspecified (5) Hypertension Current visit: No Status: Chronic - Will hold her home dose lisinopril for now to allow permissive hypertension for potential stroke. Qualifiers: Hypertension type: unspecified secondary hypertension Qualified Code(s): I15.9 - Secondary hypertension, unspecified (6) Tobacco abuse Current visit: No Status: Chronic - Will give nicotine patch during her hospital stay. - Smoking cessation counseling. (7) DVT prophylaxis Current visit: No Status: Acute - SQ heparin. Internal Medicine - H&P: HPI Chief complaint: Right facial numbness and right Admitted From: Emergency Dept Plans for Post Hospital Care: Home History of present illness: Ms. Cervantes is a 46 year old female with PMH of CAD s/p cardiac cath but no stent, diastolic CHF (LVEF 65% with moderate LV diastolic dysfunction per echo on 12/07/15), DM, HTN, hyperlipidemia, COPD, tobacco use and migraine. Patient presented with complaint of right facial numbness and right upper and lower extremity weakness starting on 10/27. Patient reports having what sounds like right facial droop on 10/26 but it resolved. She also has new onset of constant right frontal and temporal pounding pain which she says it's different from her usual migraine. Patient also reports having vertigo, shortness of breath, palpitation and some chest soreness which is not aggravated by breathing or cough. Patient denies vision change, hearing change, other numbness/tingling, dysphagia, syncope, fever, chills. Patient denies known personal or family history of stroke. Patient is full code. Past Med Surg Social Fam HX - Past Medical History Medical history: asthma, CHF, COPD, coronary artery disease, diabetes, GERD, hyperlipidemia, hypertension, pulmonary embolus, other Psychiatric history: anxiety, depression - Past Surgical History Surgical History: orthopedic, other (Right shoulder surgery) - Social History Smoking Status: Current every day smoker Packs per day: 0.5 Smokeless Tobacco Status: No Alcohol use: none Drug use: none - Family History Mother Adopted: No Family Member Ethnicity: Non- Living Status: Still Living Hx Family Cardiac Disorders: Yes Hx Family Respiratory Disorders: No Hx Family Cancer: No Hx Family GI Disorders: No Hx Family Endocrine Disorder: Yes (diabetes) Hx Family Neuromuscular Disorders: No Hx Family Neurologic Disorders: No Hx Family HEENT Disorders: No Hx Family Autoimmune Disorders: Yes Father Adopted: [place]: JOEY Age: 74 Family Member Ethnicity: Non- Living Status: Still Living Hx Family Cardiac Disorders: No Hx Family Respiratory Disorders: No Hx Family Cancer: No Hx Family GI Disorders: No Hx Family Genitourinary Disorders: No Hx Family Endocrine Disorder: Yes (DM) Hx Family Musculoskeletal Disorders: No Hx Family Neuromuscular Disorders: Yes (ALZHEIMERS) Hx Family Neurologic Disorders: Yes (ALZHIEIMERS) Hx Family HEENT Disorders: No Hx Family Autoimmune Disorders: No Hx Family Reproductive Disorders: No Hx Family Psychosocial Disorders: No Hx Family Medical Disorders: No Internal Medicine - H&P: Meds Omeprazole [PriLOSEC] 40 mg PO DAILY 03/17/15 [History] Albuterol Sulfate [Proair Hfa] 2 puff IH Q4H PRN 03/16/16 [History] Ipratropium/Albuterol Neb [Duoneb] 3 ml IH Q6H PRN #100 inhsol 03/17/16 [Rx] Aspirin 81 mg PO DAILY #30 tab.chew 05/12/16 [Rx] Atorvastatin [Lipitor] 40 mg PO HS #30 tablet 05/12/16 [Rx] Metoprolol [Lopressor] 25 mg PO BID #60 tablet 05/12/16 [Rx] Hydrochlorothiazide 12.5 mg PO DAILY 08/29/16 [History] Lisinopril [Zestril] 10 mg PO DAILY 08/29/16 [History] Metformin [Glucophage] 500 mg PO BID 08/29/16 [History] Alprazolam [Xanax 1 MG Tablet] 1 mg PO TID tablet 08/31/16 [Rx] Gabapentin [Neurontin] 800 mg PO TID #90 capsule 08/31/16 [Rx] Buspirone HCl [Buspar] 10 mg PO TID PRN 10/28/16 [History] Ondansetron ODT [Zofran ODT] 4 mg SL PRN PRN 10/28/16 [History] Venlafaxine XR (24 HR) [Effexor Xr] 300 mg PO DAILY 10/28/16 [History] Allergies clindamycin Allergy (Verified 10/28/16 09:38) Hives ketorolac [From Toradol] Adverse Reaction (Verified 10/28/16 09:38) Migraine tramadol Adverse Reaction (Verified 10/28/16 09:38) Vomiting codeine Allergy (Unknown, Uncoded 07/30/16 23:31) Difficulty Breathing nsaids Allergy (Unknown, Uncoded 07/30/16 23:31) Difficulty Breathing All Systems PM: A 10-system review of systems was performed and is negative for pertinent findings except as documented above in the HPI. - Constitutional Constitutional: weight gain, no chills, no fever(s) - EENT Ears: no decreased hearing Nose, mouth and throat: no dysphagia, no odynophagia - Cardiovascular Cardiovascular ROS IM: as per HPI, palpitations, no edema, no syncope - Respiratory Respiratory: cough (Occasional), dyspnea, no hemoptysis, no pain on inspiration , no pain with cough - Gastrointestinal Gastrointestinal: nausea, vomiting, no abdominal pain, no diarrhea, no hematochezia, no melena - Genitourinary Genitourinary: no difficulty urinating, no dysuria, no hematuria - Integumentary Integumentary IM: no pruritus, no rash - Neurological Neurological ROS: headache(s), no focal weakness, no numbness, no tingling - Hematologic/Lymphatic Hematologic/Lymphatic: no easy bleeding, no easy bruising - Constitutional Vitals: Temp Pulse Resp BP Pulse Ox 98.3 F 88 16 118/69 94 10/28/16 01:49 10/28/16 01:49 10/28/16 01:49 10/28/16 01:49 10/28/16 01:49 General appearance: Present: cooperative, A&O X 3, no acute distress, answers questions appropriately - Head Head exam: Present: atraumatic, normocephalic - Eye Eye exam: Present: EOMI, PERRL, conjuntiva pink, sclera anicteric - Neck Neck exam general surgery: Present: supple, trachea midline. Absent: lymphadenopathy - Respiratory Respiratory exam: Present: decreased breath sounds. Absent: accessory muscle use, rales, rhonchi, wheezes - Cardiovascular Cardiovascular exam: Present: RRR, +S1, +S2. Absent: diastolic murmur, gallop, rubs, systolic murmur - GI/Abdominal GI/Abdominal exam: Present: normal bowel sounds, soft, no peritoneal signs. Absent: distended, tenderness - Extremities Exam Extremities exam: Present: warm, radial pulses palpable and symetrical. Absent : calf tenderness, cyanotic, pedal edema - Neurological Exam Neurological exam: Present: CN II-XII intact (Except reported decreased sensation on right lower face compared to the left), oriented X3, no focal deficits, strengths equal and symetr throughout. Absent: pronater drift, facial droop, speech deficit - Skin Skin exam: Present: dry, intact, warm Internal Med - H&P Results - Labs CBC & Chem 7: 10/28/16 03:47 10/27/16 23:00 Labs: Short CBC 10/28/16 10/27/16 Range/Units 03:47 23:00 WBC 12.3 H 10.8 (4.3-11.1) K/mcL Hgb 10.2 L 10.4 L (11.5-15.4) g/dL Hct 32.6 L 33.5 L (35.3-44.9) % Plt Count 398 402 H (140-400) K/mcL Neutrophils # 11.0 H 7.7 (1.6-8.9) K/mcL BMP 10/27/16 Range/Units 23:00 Sodium 138 (136-145) mEq/L Potassium 3.7 (3.5-4.5) mEq/L Chloride 102 (98-109) mEq/L Carbon Dioxide 26 (19-29) mEq/L BUN 12 (7-20) mg/dL Creatinine 1.01 (0.57-1.11) mg/dL Glucose 122 H (70-99) mg/dL Calcium 9.4 (8.6-10.8) mg/dL Cardiac Enzymes 10/27/16 Range/Units 23:00 Troponin I 0.00 (0-0.03) ng/mL - EKG Data -: EKG Interpreted by Myself EKG shows normal: sinus rhythm Rate: normal - EKG Data Prior EKG available for review: yes When compared to previous EKG: there is no significant change EKG comments: 10/28/16 05:40 HR 86, SD 188, QRS 86, normal sinus rhythm, no significant ischemic change compared to prior EKG from 09/23/16. - Impressions Impressions Head CT 10/27/16 19:44 IMPRESSION: No acute intracranial abnormality. D/ / Mal Cloud MD / Mal Cloud MD Interpreting Provider: Mal Cloud MD <Aaron Prater R - Last Filed: 10/29/16 07:39> Date of Encounter: 10/28/16 Internal Medicine - H&P: HPI History of present illness: Ms. Cervantes is a 46 year old female All Systems PM: A 10-system review of systems was performed and is negative for pertinent findings except as documented above in the HPI. - Constitutional Vitals: Temp Pulse Resp BP Pulse Ox 97.4 F L 67 17 132/85 94 10/29/16 07:10 10/29/16 07:10 10/29/16 07:10 10/29/16 07:10 10/29/16 07:10 Internal Med - H&P Results - Labs CBC & Chem 7: 10/28/16 03:47 10/29/16 05:30 Labs: BMP 10/29/16 05:30 Sodium 139 Potassium 4.4 Chloride 102 Carbon Dioxide 31 H BUN 17 Creatinine 1.00 Glucose 157 H Calcium 9.6 - Impressions ITS Impressions Brain MRI 10/28/16 03:32 IMPRESSION: 1. No acute infarct or acute intracranial process identified. 2. Mild chronic small vessel ischemic changes. 3. Focal area of blooming on gradient imaging within the posterosuperior right temporal lobe which could represent a remote microhemorrhage or small cavernous malformation. D/ / 10/28/2016 13:52:41 Ted Roberts MD / Kayley Veras Interpreting Provider: Ted Roberts MD - Attending Attestation I performed history and physical examination of the patient and discussed management with the Resident. I reviewed the Residents note and agree with documented findings and plan of care. 46 Y/F with h/o CAD s/p cardiac cath but no stent, diastolic CHF (LVEF 65% with moderate LV diastolic dysfunction per echo on 12/07/15), DM, HTN, hyperlipidemia , COPD, tobacco use and migraine. Patient presented with complaint of right facial numbness and right upper and lower extremity weakness started on 10/27 ( she has given different times of onset of symptoms). She was evaluated in the emergency department discussed with Neurologist at [facility] not a candidate for TPA. O/E: No gross cranial mouth are focal neurological deficits. Cardiac regular rhythm. EKG personally reviewed by me shows sinus rhythm, ST depression in lead 1, V5- V6. CT head shows no acute intracranial abnormality. A/P: Stroke like symptoms (TIA / CVA): CT head is negative. Will obtain MRI brain, echocardiogram, carotid Doppler, neurology consult and therapies.
[2016-10-28] MEDS: Gabapentin 400 MG CAPSULE PO SCH ×3 (04:13→20:10)
[2016-10-28] MEDS: Ondansetron 4 MG/2 ML VIAL IVP PRN ×2 (04:24→15:24)
[2016-10-28 05:07] LABS: Basophils % 0.1 %; Eosinophils % 0.1 %; Hematocrit 32.6 % (35.3-44.9); Hemoglobin 10.2 g/dL (11.5-15.4); Immature Granulocytes % 0.7 % (0-4); Lymphocytes # 1.1 K/mcL (0.6-4.6); Lymphocytes % 8.8 %; Mean Corpuscular HGB Conc 31.3 g/dL (31.6-35.5); Mean Corpuscular Hemoglobin 26.7 pg (28.0-33.3); Mean Corpuscular Volume 85.3 fL (83.0-100.0); Mean Platelet Volume 9.8 fL (9.4-12.4); Monocytes # 0.1 K/mcL (0.0-1.3); Monocytes % 0.7 %; Platelet Count 398 K/mcL (140-400); Red Blood Count 3.82 M/mcL (3.82-4.97); Red Cell Distribution Width 16.5 % (11.5-14.5); Segmented Neutrophils % 89.6 %
[2016-10-28] MEDS: ALPRAZolam 1 MG TABLET PO PRN ×3 (05:21→20:19)
[2016-10-28] MEDS ORDERED: Ipratropium/Albuterol Neb 3 ML IH PRN (05:23)
[2016-10-28] MEDS ORDERED: hydrOXYzine pamoate 25 MG CAPSULE PO ONE (05:37)
[2016-10-28] MEDS ORDERED: HydrOXYzine 100 MG/2 ML VIAL IM ONE (05:41)
[2016-10-28 05:51] LABS: Thyroid Stimulating Hormone 0.261 mcIU/mL (0.350-4.840)
[2016-10-28 05:55] LABS: BUN/Creatinine Ratio 14 (6-26); Blood Urea Nitrogen 14 mg/dL (7-20); Calcium 9.3 mg/dL (8.6-10.8); Carbon Dioxide 21 mEq/L (19-29); Chloride 101 mEq/L (98-109); Glucose 229 mg/dL (70-99); Magnesium 1.8 mg/dL (1.6-2.6); Osmolality,Calculated 288 (280-300); Phosphorous 1.8 mg/dL (2.3-4.7); Potassium 4.1 mEq/L (3.5-4.5); Sodium 135 mEq/L (136-145); eGFR For African Americans > 60 (> 60); eGFR For Non-African Americans 57 (> 60)
[2016-10-28] MEDS: *HR* Heparin 5,000 UNIT/ML VIAL SQ SCH ×3 (06:24→22:05)
[2016-10-28] MEDS ORDERED: *HR* OxyCODONE/APAP 5/325 TABLET PO ONE (07:41)
[2016-10-28] MEDS: Budesonide/Formoterol 160/4.5 MDI IH SCH ×2 (08:24→20:23)
[2016-10-28] MEDS ORDERED: Dextrose Gel 15 GM PO PRN ×4 (08:35→15:10)
[2016-10-28] MEDS ORDERED: *HR* Dextrose 50 % in Water (Syg) 50 ML SYRINGE IVP PRN ×2 (08:35→15:10)
[2016-10-28] MEDS ORDERED: D5% in Water 1,000 ML IVC PRN ×2 (08:35→15:10)
[2016-10-28] MEDS: Insulin LISPRO 300 UNITS/3 ML VIAL SQ SCH ×4 (08:54→20:55)
[2016-10-28] MEDS: Aspirin 81 MG TAB.CHEW PO SCH (08:55)
[2016-10-28] MEDS: Venlafaxine XR (24 HR) 150 MG CAP.ER.24H PO SCH (08:55)
[2016-10-28] MEDS: Nicotine 14 MG PATCH.TD24 TD SCH (08:55)
[2016-10-28] MEDS ORDERED: Perflutren Lipid Microsphere 1.3 ML in 0.9 % Sodium Chloride 8.7 ML IVP ONE (10:38)
[2016-10-28 11:30] LABS: Hemoglobin A1C 6.6 %
--- NOTE | 2016-10-28 12:11 | Electrocardiograph Report ---
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
[2016-10-28] MEDS: *HR* OxyCODONE/APAP 5/325 TABLET PO PRN ×2 (12:37→22:12)
--- NOTE | 2016-10-28 12:40 | ECHO - Doppler Report ---
Echo with Saline and Imaging Enhancement Agent Name: Krystle Cervantes Date of Study: 10/28/2016 Date: 1970 Ht: 66.0 in Medical Record#: [id number] Age: 46 Wt: 300.0 lb Gender: Female BSA: 2.38 Order #: [id number] Location: [facility] Room #: 3B Reading Physician: Rey Eckert MD, [facility] Photographic Press Screwmaker: Trupti Cárdenas RVT Ordering Physician: No Freitas DO Primary Physician: None Indications: Cerebrovascular Accident Impressions: Technically sub-optimal due to body habitus. Echo contrast was used. Normal LV systolic function, LVEF 65%. Normal left ventricular diastolic function. Normal right ventricular size and function. No evidence of pulmonary hypertension. No significant valvular dysfunction. No evidence of intracardiac shunting with agitated saline contrast. Left Ventricular Wall Motion: Rest Echo Findings All wall segments showed normal motion. Findings: Study Quality * Technically sub-optimal due to body habitus. Echo contrast was used. ECG Findings * Normal sinus rhythm. Left Ventricle * Normal LV systolic function, LVEF 65%. * Normal LV chamber size and wall thickness. * Normal left ventricular diastolic function. Right Ventricle * Normal right ventricular size and function. Left Atrium * Normal left atrial size. Right Atrium * Normal right atrial size. Aorta * Normally sized aortic root. Pericardium * There is no pericardial effusion present. IVC * Normal IVC dimensions and inspiratory collapse. Aortic Valve * Aortic valve not well visualized. * No aortic stenosis. * Trace aortic regurgitation. Mitral Valve * Mild mitral annular calcification * No mitral stenosis. * No mitral regurgitation. Tricuspid Valve * Tricuspid valve not well visualized. * No tricuspid stenosis. * Trace tricuspid regurgitation. * No evidence of pulmonary hypertension. Pulmonic Valve * Pulmonic valve not well visualized. * No pulmonic stenosis. * No pulmonic regurgitation. Interatrial Septum * No evidence of intracardiac shunting with agitated saline contrast. History Hypertension Diabetes Hypercholesteremia Family History of CAD Congestive Heart Failure 12/07/2015 a Previous Echo was performed. Contrast: Agitated saline 20 ml. Definity 1.3 ml in 8.7 ml of saline 2 ml. Measurements: BP: 140/ 71 2D Normal Values RVIDd: 2.30 cm IVSd: 1.00 cm 0.6 - 1.0 cm LVIDd: 5.10 cm 3.7 - 5.6 cm LVPWd: .90 cm 0.6 - 1.1 cm LVIDs: 3.00 cm 1.5 - 3.6 cm AO: 3.00 cm < 4.0 cm LA volume: 35 Mitral Valve Peak E:1.12 m/sec Peak A:.99 m/sec E/A Ratio:1.1 Peak E' Lat Cliff:12.8 cm/s Peak E' Med Cliff:13.1 cm/s E/E' Lat Ratio:8.8 E/E' Med Ratio:8.5 Tricuspid Valve TV Regurg Peak Grad: 8.00mmHg TV Regurg Peak Cliff: 1.40m/sec Updated by Rey Eckert MD, [facility] on 10/28/2016 12:34:17 PM electronically signed on 10/28/2016 12:35:03 PM with status of Final Wall Motion Rivera: 1=Normal, 2=Hypokinesis, 3=Akinesis, 4=Dyskinesis, 5=Aneurysmal, 6=Hyperkinetic, X=Not Visualized (Blank)=Missing
[2016-10-28] MEDS ORDERED: Sodium Phosphate 30 MMOL in D5% in Water 100 ML IVPB ONE (14:37)
--- NOTE | 2016-10-28 15:12 | Neurology - Consult Note ---
Date of Encounter: 10/28/16 Time of Encounter: 15:11 Assessment and Plan (1) Stroke-like symptoms Current Visit: Yes Status: Acute No evidence of acute infarct or other acute intracranial abnormality. Symptoms of persistent right sided headaches, skull pain can be the result of atypical migraine, hemicrania continua, or elevated HTN causing vascular headaches. Please note the patient does have a myofascial pain syndrome listed on her medical conditions in [facility]. 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 May benefit from treating migraines, or symptomatic treatment of headaches. She can be follow up at neurology clinic after discharge. She may benefit from getting carotid artery duplex but this can be done as an outpatient. History of Present Illness Chief complaint: headache and right facial numbness HPI: Ms. Cervantes is a 46 year old female with PMH significant for HTN, DM obesity, migraine, and history of myofascial pain who developed acute onset of right sided facial numbness in light of a severe right sided headache since the last two days. Still feels that the right facie feels different. Describes pain to the right side, involving the right skull, back of head and referring to the right face as well. She says that the headache is different than her usual migraines, where she would develop visual changes, light sensitivity and nausea. This time she feels that the right side of her body different. At the time of this interview, her MRI of brain was completed and showed no acute intracranial abnormality MR/MR head/brain wo con IMPRESSION: 1. No acute infarct or acute intracranial process identified. 2. Mild chronic small vessel ischemic changes. 3. Focal area of blooming on gradient imaging within the posterosuperior right temporal lobe which could represent a remote microhemorrhage or small cavernous malformation. It should be mentioned that the finding #3 has no clinical significance since her symptoms are on the right side of her face Echocardiography showed suboptimal study with normal LVEF, no wall motion abnormality, no valcular disease, no shunting with contrast Currently, the patient still feels that right face is numb and the pain is still there. She says that she was given a percocet and it helps a little. Past Med Surg Social Fam HX - Past Medical History Medical history: asthma, CHF, COPD, coronary artery disease, diabetes, GERD, hyperlipidemia, hypertension, pulmonary embolus Psychiatric history: depression - Past Surgical History Surgical History: orthopedic, other - Social History Smoking Status: Current every day smoker Packs per day: 0.5 Smokeless Tobacco Status: No Alcohol use: none Drug use: none - Family History Mother Adopted: No Family Member Ethnicity: Non- Living Status: Still Living Hx Family Cardiac Disorders: Yes Hx Family Respiratory Disorders: No Hx Family Cancer: No Hx Family GI Disorders: No Hx Family Endocrine Disorder: Yes (diabetes) Hx Family Neuromuscular Disorders: No Hx Family Neurologic Disorders: No Hx Family HEENT Disorders: No Hx Family Autoimmune Disorders: Yes Father Adopted: [place]: JOEY Age: 74 Family Member Ethnicity: Non- Living Status: Still Living Hx Family Cardiac Disorders: No Hx Family Respiratory Disorders: No Hx Family Cancer: No Hx Family GI Disorders: No Hx Family Genitourinary Disorders: No Hx Family Endocrine Disorder: Yes (DM) Hx Family Musculoskeletal Disorders: No Hx Family Neuromuscular Disorders: Yes (ALZHEIMERS) Hx Family Neurologic Disorders: Yes (ALZHIEIMERS) Hx Family HEENT Disorders: No Hx Family Autoimmune Disorders: No Hx Family Reproductive Disorders: No Hx Family Psychosocial Disorders: No Hx Family Medical Disorders: No Medications and Allergies Omeprazole [PriLOSEC] 40 mg PO DAILY 03/17/15 [History] Albuterol Sulfate [Proair Hfa] 2 puff IH Q4H PRN 03/16/16 [History] Ipratropium/Albuterol Neb [Duoneb] 3 ml IH Q6H PRN #100 inhsol 03/17/16 [Rx] Aspirin 81 mg PO DAILY #30 tab.chew 05/12/16 [Rx] Atorvastatin [Lipitor] 40 mg PO HS #30 tablet 05/12/16 [Rx] Metoprolol [Lopressor] 25 mg PO BID #60 tablet 05/12/16 [Rx] Hydrochlorothiazide 12.5 mg PO DAILY 08/29/16 [History] Lisinopril [Zestril] 10 mg PO DAILY 08/29/16 [History] Metformin [Glucophage] 500 mg PO BID 08/29/16 [History] Alprazolam [Xanax 1 MG Tablet] 1 mg PO TID tablet 08/31/16 [Rx] Gabapentin [Neurontin] 800 mg PO TID #90 capsule 08/31/16 [Rx] Buspirone HCl [Buspar] 10 mg PO TID PRN 10/28/16 [History] Ondansetron ODT [Zofran ODT] 4 mg SL PRN PRN 10/28/16 [History] Venlafaxine XR (24 HR) [Effexor Xr] 300 mg PO DAILY 10/28/16 [History] Allergies clindamycin Allergy (Verified 10/28/16 09:38) Hives ketorolac [From Toradol] Adverse Reaction (Verified 10/28/16 09:38) Migraine tramadol Adverse Reaction (Verified 10/28/16 09:38) Vomiting codeine Allergy (Unknown, Uncoded 07/30/16 23:31) Difficulty Breathing nsaids Allergy (Unknown, Uncoded 07/30/16 23:31) Difficulty Breathing All Systems: A 10-system review of systems was performed and is negative for pertinent findings except as documented above in the HPI. Physical Examination - Vital Signs Vital Signs: Initial Vital Signs Temp Pulse Resp BP Pulse Ox 99.2 F 85 15 109/87 96 10/27/16 19:12 10/27/16 19:12 10/27/16 19:12 10/27/16 19:12 10/27/16 19:12 - Constitutional General appearance: comfortable - Neurologic Sensorimotor examination: other (left facial numbness) Detailed motor examination: grossly full strength in all extremities Motor examination - right side: 5/5: deltoids, biceps, triceps, wrist flexion, wrist extension, seals engraver, hip flexors, tibialis Anterior, quadriceps, toe extension (EHL), plantarflexion Motor examination - left side: 5/5: deltoids, biceps, triceps, wrist flexion, wrist extension, hip flexors, seals engraver, quadriceps, tibialis Anterior, toe extension (EHL), plantarflexion Detailed sensory examination: intact, other (left facial numbness) Posture: other Reflex and gait examination: intact Reflexes: Biceps: 1+, Triceps: 1+, Brachioradialis: 1+, Patella: 1+, Achilles: 1 + Results - Laboratory Findings CBC and BMP: 10/28/16 03:47 10/28/16 03:47 Abnormal lab findings: Abnormal lab results WBC 12.3 K/mcL (4.3-11.1) H 10/28/16 03:47 Hgb 10.2 g/dL (11.5-15.4) L 10/28/16 03:47 Hct 32.6 % (35.3-44.9) L 10/28/16 03:47 MCH 26.7 pg (28.0-33.3) L 10/28/16 03:47 MCHC 31.3 g/dL (31.6-35.5) L 10/28/16 03:47 RDW 16.5 % (11.5-14.5) H 10/28/16 03:47 Neutrophils # 11.0 K/mcL (1.6-8.9) H 10/28/16 03:47 Nucleated RBCs/100 WBC 0.2 /100 WBC (0) H 10/27/16 23:00 PT 12.3 Seconds (9.4-12.1) H 10/27/16 23:00 Sodium 135 mEq/L (136-145) L 10/28/16 03:47 Est GFR (Non-Af Amer) 57 (> 60) L 10/28/16 03:47 Glucose 229 mg/dL (70-99) H 10/28/16 03:47 POC Glucose 201 (58-89) H 10/28/16 13:20 Hemoglobin A1c 6.6 % (-5.6) H 10/28/16 03:47 Phosphorus 1.8 mg/dL (2.3-4.7) L 10/28/16 03:47 TSH 0.261 mcIU/mL (0.350-4.840) L 10/28/16 03:47 Consult Discharge Plan - Plan Referrals: NO,PCP [Primary Care Provider] -
--- NOTE | 2016-10-28 15:37 | Internal Med Progress Note ---
Date of Encounter: 10/28/16 Time of Encounter: 14:00 - Assessment and plan (1) Headache Current Visit: Yes Status: Acute Assessment and plan: Neurology consult appreciated. Could be atypical migraine or hemicranial headache. Continue when necessary Percocet and start Fioricet and sumatriptan for symptom control. Supportive care. CT head and MRI brain show no evidence of acute stroke. Patient continues to have right-sided weakness along with right facial pain and numbness. Per neurology notes, patient does have documented myofascial pain per outpatient records. Echocardiogram shows preserved EF and no gross valvular abnormalities or cardiac thrombus. Follow-up carotid Doppler. Qualifiers: Headache type: unspecified Headache chronicity pattern: unspecified pattern Intractability: not intractable Qualified Code(s): R51 - Headache (2) Morbid obesity with BMI of 40.0-44.9, adult Current Visit: Yes Status: Chronic (3) Tobacco abuse Current Visit: Yes Status: Chronic (4) GERD (gastroesophageal reflux disease) Current Visit: Yes Status: Chronic Qualifiers: Esophagitis presence: esophagitis presence not specified Qualified Code(s) : K21.9 - Gastro-esophageal reflux disease without esophagitis (5) Hypertension Current Visit: Yes Status: Chronic Assessment and plan: BP well-controlled; continue current meds; Qualifiers: Hypertension type: essential hypertension Qualified Code(s): I10 - Essential (primary) hypertension (6) Anxiety Current Visit: Yes Status: Chronic (7) COPD (chronic obstructive pulmonary disease) Current Visit: Yes Status: Chronic Qualifiers: COPD type: unspecified COPD Qualified Code(s): J44.9 - Chronic obstructive pulmonary disease, unspecified (8) CAD (coronary artery disease) Current Visit: Yes Status: Chronic Qualifiers: Coronary Disease-Associated Artery/Lesion type: [place] artery [place] vs. transplanted heart: [place] heart Associated angina: without angina Qualified Code(s): I25.10 - Atherosclerotic heart disease of [place] coronary artery without angina pectoris - Subjective Interval history: Continues to have persistent right-sided headache and facial pain, numbness associated with nausea and dizziness. Also continues to have right-sided weakness. No blurred vision, projectile vomiting, confusion. - Constitutional Vitals: Temp Pulse Resp BP Pulse Ox 98.1 F 86 15 128/87 97 10/28/16 15:12 10/28/16 15:12 10/28/16 15:12 10/28/16 15:12 10/28/16 15:12 General appearance: Present: mild distress, A&O X 3, answers questions appropriately - Respiratory Respiratory exam: Present: CTAB. Absent: accessory muscle use, rales, rhonchi, wheezes - Cardiovascular Cardiovascular exam: Present: RRR, +S1, +S2. Absent: diastolic murmur, gallop, rubs, systolic murmur - GI/Abdominal GI/Abdominal exam: Present: normal bowel sounds, soft (obese), no peritoneal signs. Absent: distended, tenderness - Extremities Exam Extremities exam: Present: full ROM, warm, radial pulses palpable and symetrical. Absent: calf tenderness, cyanotic, pedal edema - Neurological Exam Neurological exam: Present: CN II-XII intact, oriented X3, strengths equal and symetr throughout (4/5 motor power on left side). Absent: pronater drift, facial droop, speech deficit Internal Medicine: Result - Labs CBC & Chem 7: 10/28/16 03:47 10/28/16 03:47 Labs: Short CBC 10/28/16 Range/Units 03:47 WBC 12.3 H (4.3-11.1) K/mcL Hgb 10.2 L (11.5-15.4) g/dL Hct 32.6 L (35.3-44.9) % Plt Count 398 (140-400) K/mcL Neutrophils # 11.0 H (1.6-8.9) K/mcL BMP 10/28/16 03:47 Sodium 135 L Potassium 4.1 Chloride 101 Carbon Dioxide 21 BUN 14 Creatinine 1.03 Glucose 229 H Calcium 9.3 - ABG Interpretation ABG results: PT/INR, D-dimer PT 12.3 Seconds (9.4-12.1) H 10/27/16 23:00 - Impressions Impressions Brain MRI 10/28/16 03:32 IMPRESSION: 1. No acute infarct or acute intracranial process identified. 2. Mild chronic small vessel ischemic changes. 3. Focal area of blooming on gradient imaging within the posterosuperior right temporal lobe which could represent a remote microhemorrhage or small cavernous malformation. D/ / 10/28/2016 13:52:41 Ted Roberts MD / Kayley Veras Interpreting Provider: Ted Roberts MD Consult Discharge Plan - Plan Referrals: NO,PCP [Primary Care Provider] -
[2016-10-28] MEDS ORDERED: SUMAtriptan 6 MG/0.5 ML SQ ONE (16:05)
[2016-10-28] MEDS: Acetaminophen/Butalbital/CaffeineTABLET PO PRN (20:10)
[2016-10-28] MEDS: Triamcinolone Acet 0.1% CRM 15 GM TUBE TP SCH (20:11)
[2016-10-28] MEDS ORDERED: Insulin LISPRO 300 UNITS/3 ML VIAL SQ SCH (21:00)
[2016-10-29] MEDS: Acetaminophen/Butalbital/CaffeineTABLET PO PRN (01:44)
[2016-10-29] MEDS: *HR* OxyCODONE/APAP 5/325 TABLET PO PRN ×3 (04:32→18:31)
[2016-10-29] MEDS: Ondansetron 4 MG/2 ML VIAL IVP PRN ×2 (04:52→18:32)
[2016-10-29] MEDS: *HR* Heparin 5,000 UNIT/ML VIAL SQ SCH ×3 (04:58→20:47)
[2016-10-29 06:21] LABS: BUN/Creatinine Ratio 17 (6-26); Blood Urea Nitrogen 17 mg/dL (7-20); Calcium 9.6 mg/dL (8.6-10.8); Carbon Dioxide 31 mEq/L (19-29); Chloride 102 mEq/L (98-109); Glucose 157 mg/dL (70-99); Osmolality,Calculated 293 (280-300); Sodium 139 mEq/L (136-145); eGFR For African Americans > 60 (> 60); eGFR For Non-African Americans 59 (> 60)
[2016-10-29 06:24] LABS: Phosphorous 3.7 mg/dL (2.3-4.7)
[2016-10-29 06:25] LABS: Potassium 4.4 mEq/L (3.5-4.5)
[2016-10-29] MEDS: Budesonide/Formoterol 160/4.5 MDI IH SCH ×2 (08:03→20:29)
[2016-10-29] MEDS: Aspirin 81 MG TAB.CHEW PO SCH (08:36)
[2016-10-29] MEDS: Gabapentin 400 MG CAPSULE PO SCH ×3 (08:36→20:47)
[2016-10-29] MEDS: Venlafaxine XR (24 HR) 150 MG CAP.ER.24H PO SCH (08:37)
[2016-10-29] MEDS: Triamcinolone Acet 0.1% CRM 15 GM TUBE TP SCH ×2 (08:37→20:53)
[2016-10-29] MEDS: Insulin LISPRO 300 UNITS/3 ML VIAL SQ SCH ×4 (08:39→20:55)
[2016-10-29] MEDS: Nicotine 14 MG PATCH.TD24 TD SCH (08:39)
[2016-10-29] MEDS: ALPRAZolam 1 MG TABLET PO PRN ×3 (08:42→20:47)
--- NOTE | 2016-10-29 15:36 | Internal Med Progress Note ---
Date of Encounter: 10/29/16 Time of Encounter: 10:30 - Assessment and plan (1) Headache Current Visit: Yes Status: Acute Assessment and plan: Neurology consult appreciated. Could be atypical migraine or hemicranial headache. Patient continues to have persistent headache and requests for IV narcotic analgesics, explained the side effects of IV opiates including worsening dizziness, drowsiness, respiratory depression and hypotension, will increase the dose of Percocet at this time. Case discussed with neurology, will start oral Solu-Medrol for symptomatic relief. Supportive care. CT head and MRI brain show no evidence of acute stroke. Echocardiogram shows preserved EF and no gross valvular abnormalities or cardiac thrombus. Follow-up carotid Doppler. Qualifiers: Headache type: unspecified Headache chronicity pattern: unspecified pattern Intractability: not intractable Qualified Code(s): R51 - Headache (2) Morbid obesity with BMI of 40.0-44.9, adult Current Visit: Yes Status: Chronic (3) Tobacco abuse Current Visit: Yes Status: Chronic (4) GERD (gastroesophageal reflux disease) Current Visit: Yes Status: Chronic Qualifiers: Esophagitis presence: esophagitis presence not specified Qualified Code(s) : K21.9 - Gastro-esophageal reflux disease without esophagitis (5) Hypertension Current Visit: Yes Status: Chronic Assessment and plan: BP well-controlled; continue current meds; Qualifiers: Hypertension type: essential hypertension Qualified Code(s): I10 - Essential (primary) hypertension (6) Anxiety Current Visit: Yes Status: Chronic (7) COPD (chronic obstructive pulmonary disease) Current Visit: Yes Status: Chronic Qualifiers: COPD type: unspecified COPD Qualified Code(s): J44.9 - Chronic obstructive pulmonary disease, unspecified (8) CAD (coronary artery disease) Current Visit: Yes Status: Chronic Qualifiers: Coronary Disease-Associated Artery/Lesion type: [place] artery [place] vs. transplanted heart: [place] heart Associated angina: without angina Qualified Code(s): I25.10 - Atherosclerotic heart disease of [place] coronary artery without angina pectoris (9) Chronic low back pain Current Visit: Yes Status: Chronic Assessment and plan: Patient reports having chronic low back pain due to disc bulging and does follow with spine surgeon in [place]. Insists on getting MRI of her spine to evaluate spinal stenosis due to a new onset of right-sided weakness and numbness and possible urinary incontinence per patient. Will get MRI of thoracic and lumbar spine without contrast. Start oral Solu-Medrol for symptomatic relief. Qualifiers: Back pain laterality: midline Sciatica presence: without sciatica Qualified Code(s): M54.5 - Low back pain; G89.29 - Other chronic pain - Subjective Interval history: Reports persistent right-sided headache and facial pain, along with right-sided weakness and numbness. Associated with nausea, dizziness and vertigo-like symptoms. Noted to be depressed and tearful due to her condition and multiple ongoing medical complaints. - Constitutional Vitals: Temp Pulse Resp BP Pulse Ox 98.0 F 72 18 124/84 96 10/29/16 14:57 10/29/16 14:57 10/29/16 14:57 10/29/16 14:57 10/29/16 14:57 General appearance: Present: mild distress, A&O X 3, answers questions appropriately - Respiratory Respiratory exam: Present: CTAB. Absent: accessory muscle use, rales, rhonchi, wheezes - Cardiovascular Cardiovascular exam: Present: RRR, +S1, +S2. Absent: diastolic murmur, gallop, rubs, systolic murmur - GI/Abdominal GI/Abdominal exam: Present: normal bowel sounds, soft, no peritoneal signs. Absent: distended, tenderness - Neurological Exam Neurological exam: Present: CN II-XII intact, oriented X3, no focal deficits, strengths equal and symetr throughout (Decreased on the right side with motor power 4/5). Absent: pronater drift, facial droop, speech deficit Internal Medicine: Result - Labs CBC & Chem 7: 10/28/16 03:47 10/29/16 05:30 Labs: BMP 10/29/16 05:30 Sodium 139 Potassium 4.4 Chloride 102 Carbon Dioxide 31 H BUN 17 Creatinine 1.00 Glucose 157 H Calcium 9.6 - ABG Interpretation ABG results: PT/INR, D-dimer PT 12.3 Seconds (9.4-12.1) H 10/27/16 23:00 - Impressions Impressions Lumbar Spine MRI 10/29/16 10:33 IMPRESSION: Mild degenerative change without spinal canal stenosis or evidence of neural impingement. Chronic bilateral L5 pars defects without significant anterolisthesis or reactive edema. D/ / Andrae Gonzalez MD / Andrae Gonzalez MD Interpreting Provider: Andrae Gonzalez MD Thoracic Spine MRI 10/29/16 10:33 IMPRESSION: Unremarkable MRI of the thoracic spine. D/ / 10/29/2016 13:42:22 Radha Godoy MD / hayes Interpreting Provider: Radha Godoy MD - VTE Documentation of Mechanical Device: Intermittent pneumatic compression device Consult Discharge Plan - Plan Referrals: NO,PCP [Primary Care Provider] -
[2016-10-29] MEDS: methylPREDNISolone 4 MG TABLET PO SCH ×2 (16:06)
[2016-10-30] MEDS: *HR* OxyCODONE/APAP 5/325 TABLET PO PRN ×3 (00:21→10:33)
[2016-10-30] MEDS: Ondansetron 4 MG/2 ML VIAL IVP PRN (06:05)
[2016-10-30] MEDS: *HR* Heparin 5,000 UNIT/ML VIAL SQ SCH (06:05)
[2016-10-30 07:42] VITALS: BP 119/86
[2016-10-30] MEDS: Aspirin 81 MG TAB.CHEW PO SCH (09:49)
[2016-10-30] MEDS: Gabapentin 400 MG CAPSULE PO SCH (09:49)
[2016-10-30] MEDS: Venlafaxine XR (24 HR) 150 MG CAP.ER.24H PO SCH (09:50)
[2016-10-30] MEDS: Nicotine 14 MG PATCH.TD24 TD SCH (09:51)
[2016-10-30] MEDS: methylPREDNISolone 4 MG TABLET PO SCH (09:51)
[2016-10-30] MEDS: ALPRAZolam 1 MG TABLET PO PRN (09:51)
[2016-10-30] MEDS: Insulin LISPRO 300 UNITS/3 ML VIAL SQ SCH (09:52)
[2016-10-30] MEDS: Triamcinolone Acet 0.1% CRM 15 GM TUBE TP SCH (09:52)
[2016-10-30] MEDS: Acetaminophen/Butalbital/CaffeineTABLET PO PRN (09:55)
[2016-10-30] MEDS: Budesonide/Formoterol 160/4.5 MDI IH SCH (10:50)
--- NOTE | 2016-10-30 11:02 | Discharge Summary ---
Date of Encounter: 10/30/16 Time of Encounter: 10:53 - Discharge Diagnosis (1) Headache Priority: Primary Status: Acute Qualifiers: Headache type: unspecified Headache chronicity pattern: unspecified pattern Intractability: intractable Qualified Code(s): R51 - Headache (2) Morbid obesity with BMI of 40.0-44.9, adult Priority: Secondary Status: Chronic (3) Tobacco abuse Priority: Secondary Status: Chronic (4) GERD (gastroesophageal reflux disease) Priority: Secondary Status: Chronic Qualifiers: Esophagitis presence: esophagitis presence not specified Qualified Code(s) : K21.9 - Gastro-esophageal reflux disease without esophagitis (5) Hypertension Priority: Secondary Status: Chronic Qualifiers: Hypertension type: essential hypertension Qualified Code(s): I10 - Essential (primary) hypertension (6) Anxiety Priority: Secondary Status: Chronic (7) COPD (chronic obstructive pulmonary disease) Priority: Secondary Status: Chronic Qualifiers: COPD type: unspecified COPD Qualified Code(s): J44.9 - Chronic obstructive pulmonary disease, unspecified (8) CAD (coronary artery disease) Priority: Secondary Status: Chronic Qualifiers: Coronary Disease-Associated Artery/Lesion type: [place] artery [place] vs. transplanted heart: [place] heart Associated angina: without angina Qualified Code(s): I25.10 - Atherosclerotic heart disease of [place] coronary artery without angina pectoris (9) Chronic low back pain Priority: Secondary Status: Chronic Qualifiers: Back pain laterality: midline Sciatica presence: without sciatica Qualified Code(s): M54.5 - Low back pain; G89.29 - Other chronic pain (10) Depression Priority: Secondary Status: Chronic Qualifiers: Depression Type: unspecified Qualified Code(s): F32.9 - Major depressive disorder, single episode, unspecified - Discharge Medications Prescriptions: OxyCODONE/APAP 5/325 [Percocet 5/325 MG] 1 each PO Q6HR PRN #20 tablet PRN Reason: Pain Triamcinolone Acet 0.1% CRM [Kenalog] 1 appl TP BID #2 tube Home Medications: Omeprazole [PriLOSEC] 40 mg PO DAILY 03/17/15 [History] Albuterol Sulfate [Proair Hfa] 2 puff IH Q4H PRN 03/16/16 [History] Ipratropium/Albuterol Neb [Duoneb] 3 ml IH Q6H PRN #100 inhsol 03/17/16 [Rx] Aspirin 81 mg PO DAILY #30 tab.chew 05/12/16 [Rx] Atorvastatin [Lipitor] 40 mg PO HS #30 tablet 05/12/16 [Rx] Metoprolol [Lopressor] 25 mg PO BID #60 tablet 05/12/16 [Rx] Hydrochlorothiazide 12.5 mg PO DAILY 08/29/16 [History] Lisinopril [Zestril] 10 mg PO DAILY 08/29/16 [History] Metformin [Glucophage] 500 mg PO BID 08/29/16 [History] Alprazolam [Xanax 1 MG Tablet] 1 mg PO TID tablet 08/31/16 [Rx] Gabapentin [Neurontin] 800 mg PO TID #90 capsule 08/31/16 [Rx] Buspirone HCl [Buspar] 10 mg PO TID PRN 10/28/16 [History] Ondansetron ODT [Zofran ODT] 4 mg SL PRN PRN 10/28/16 [History] Venlafaxine XR (24 HR) [Effexor Xr] 300 mg PO DAILY 10/28/16 [History] Budesonide/Formoterol 160/4.5 [Symbicort 160/4.5] 2 puff IH BIDRESP inhaler 10/13 [Rx] OxyCODONE/APAP 5/325 [Percocet 5/325 MG] 1 each PO Q6HR PRN #20 tablet 10/30/16 [Rx] Triamcinolone Acet 0.1% CRM [Kenalog] 1 appl TP BID #2 tube 10/30/16 [Rx] Allergies/Adverse Reactions: Allergies clindamycin Allergy (Verified 10/28/16 09:38) Hives ketorolac [From Toradol] Adverse Reaction (Verified 10/28/16 09:38) Migraine tramadol Adverse Reaction (Verified 10/28/16 09:38) Vomiting codeine Allergy (Unknown, Uncoded 07/30/16 23:31) Difficulty Breathing nsaids Allergy (Unknown, Uncoded 07/30/16 23:31) Difficulty Breathing Procedures/tests Complete & Pending: Procedures Performed prior 72 hours Category Date Time Status MR head/brain wo con [MR] Routine MRI 10/28/16 03:32 Completed MR lumbar spine wo con [MR] Routine MRI 10/29/16 10:33 Completed MR thoracic spine wo con [MR] Routine MRI 10/29/16 10:33 Draft ECG 12 lead ECG [ECG] Routine Y 10/27/16 19:16 Completed EV carotid duplex imaging BI Routine Y 10/28/16 03:33 Completed EV echocardiogram w enhance Routine Y 10/28/16 05:21 Completed Date of admission: 10/27/16 23:29 Primary care physician: PCP NO Consults: 10/28/16 03:36 Consult to Physical Therapy [CONS] Routine Comment: Evaluate, develop and implement POC Reason for Consult: Right-sided weakness OT [Consult to Occupational Therapy] [CONS] Routine Comment: Evaluate, develop and implement POC Reason for Consult: Right-sided weakness 10/28/16 07:41 Consult to Neurology [CONS] Routine Consulting Provider: [facility] Reason for Consult: TIA / CVA Call Completed: No 10/30/16 10:19 Consult to Story Editor ([facility]&C) [CONS] Routine Reason For Exam: home health Reason for SW Consult: patient needs a primary care physician, and possible home health. Discharging clinician: Jenny Garza Anticipated date of discharge: 10/30/16 - Patient Status Disposition: Home Health Service Condition: Good Functional capacity at discharge: uses cane/walker Overall status at discharge: patient is progressing back to baseline - Discharge Instructions Instructions: Oxycodone/Acetaminophen (By mouth), Heart Healthy Diet (GEN) Follow Up With: Nyla Mckeon CNP [Advanced Practice Nurse] - 11/06/16 10:30 am Medina Wallace COOKING INSTRUCTOR [Non-Partnered Physician] - 11/03/16 11:00 am Additional Instructions: F/up with PCP in 1-2 weeks F/up with [facility] in 1-2 weeks F/up with Spine surgery in [place] as scheduled - Diet and Activity Activity: as per physical therapy Diet: diabetic diet, low fat, low cholesterol, low salt diet Hospital course: Ms. Cervantes is a 46 year old female with the above medical problems and significant history of depression, was admitted with worsening right-sided headache, right facial numbness and right-sided weakness in upper and lower extremities. CT head done in the emergency room, initial labs and EKG showed no acute abnormality. Stroke workup was completed with no abnormality-MRI brain showed no evidence of acute infarct, bilateral carotid Doppler showed normal vessels; echocardiogram showed preserved ejection fraction and no significant valvular abnormalities or cardiac thrombus. Neurology was consulted and recommended migraine treatment for possible atypical migraine. Of note, patient does have documented chronic myofascial pain syndrome in outpatient notes. Patient then complained of worsening acute on chronic low back pain and attributes it her symptoms to possible worsening slipped disc/spinal stenosis/ nerve compression. MRI thoracic and lumbar spine have been completed which shows mild diffuse disc bulging at the level of L5/S1 with no evidence of spinal canal stenosis or nerve root compression. The above findings were explained to the patient, indicating that there was no acute medical or surgical intervention required in the hospital. Patient is noted to be emotional and tearful and often seeking opiate analgesics. She does require close outpatient psychiatry follow-up. Physical therapy evaluation has been completed and recommend home health services. Referral has been completed and patient is medically stable for discharge at this time. - Time Spent with Patient Total time spent providing and/or coordinating discharge services: Greater than 30 minutes (50 min) - Constitutional Vitals: Temp Pulse Resp BP Pulse Ox 97.6 F 77 14 119/86 95 10/30/16 07:36 10/30/16 07:36 10/30/16 07:36 10/30/16 07:36 10/30/16 07:36 General appearance: Present: A&O X 3, answers questions appropriately - Respiratory Respiratory exam: Present: CTAB. Absent: accessory muscle use, rales, rhonchi, wheezes - Cardiovascular Cardiovascular exam: Present: RRR, +S1, +S2. Absent: diastolic murmur, gallop, rubs, systolic murmur - VTE Documentation of Mechanical Device: Intermittent pneumatic compression device
--- NOTE | 2016-10-30 11:05 | Physician Discharge Referral ---
Home Health/Hosp Referral Info Transfer to: Home Health Attending Provider: Jenny Garza Provider in Charge Post Discharge: PCP - Diagnosis (1) Headache Priority: Primary Status: Acute (2) Morbid obesity with BMI of 40.0-44.9, adult Priority: Secondary Status: Chronic (3) Tobacco abuse Priority: Secondary Status: Chronic (4) GERD (gastroesophageal reflux disease) Priority: Secondary Status: Chronic (5) Hypertension Priority: Secondary Status: Chronic (6) Anxiety Priority: Secondary Status: Chronic (7) COPD (chronic obstructive pulmonary disease) Priority: Secondary Status: Chronic (8) CAD (coronary artery disease) Priority: Secondary Status: Chronic (9) Chronic low back pain Priority: Secondary Status: Chronic (10) Depression Priority: Secondary Status: Chronic - Respiratory Orders Smoking Cessation: Smoking cessation has been advised. For more information, call the [place] Tobacco Quit Line at 1-118-BRVT-NOW. - Diet/Nutrition Diet/Nutrition Orders: Cardiac, No Concentrated Sweets (diabetic) - Activity Activity Orders: Ambulate - Services Needed Following services are medically necessary services: Nursing, Physical Therapy, Occupational Therapy - Transfer Medications Prescriptions: OxyCODONE/APAP 5/325 [Percocet 5/325 MG] 1 each PO Q6HR PRN #20 tablet PRN Reason: Pain Triamcinolone Acet 0.1% CRM [Kenalog] 1 appl TP BID #2 tube Home Medications: Omeprazole [PriLOSEC] 40 mg PO DAILY 03/17/15 [History] Albuterol Sulfate [Proair Hfa] 2 puff IH Q4H PRN 03/16/16 [History] Ipratropium/Albuterol Neb [Duoneb] 3 ml IH Q6H PRN #100 inhsol 03/17/16 [Rx] Aspirin 81 mg PO DAILY #30 tab.chew 05/12/16 [Rx] Atorvastatin [Lipitor] 40 mg PO HS #30 tablet 05/12/16 [Rx] Metoprolol [Lopressor] 25 mg PO BID #60 tablet 05/12/16 [Rx] Hydrochlorothiazide 12.5 mg PO DAILY 08/29/16 [History] Lisinopril [Zestril] 10 mg PO DAILY 08/29/16 [History] Metformin [Glucophage] 500 mg PO BID 08/29/16 [History] Alprazolam [Xanax 1 MG Tablet] 1 mg PO TID tablet 08/31/16 [Rx] Gabapentin [Neurontin] 800 mg PO TID #90 capsule 08/31/16 [Rx] Buspirone HCl [Buspar] 10 mg PO TID PRN 10/28/16 [History] Ondansetron ODT [Zofran ODT] 4 mg SL PRN PRN 10/28/16 [History] Venlafaxine XR (24 HR) [Effexor Xr] 300 mg PO DAILY 10/28/16 [History] Budesonide/Formoterol 160/4.5 [Symbicort 160/4.5] 2 puff IH BIDRESP inhaler 10/13 [Rx] OxyCODONE/APAP 5/325 [Percocet 5/325 MG] 1 each PO Q6HR PRN #20 tablet 10/30/16 [Rx] Triamcinolone Acet 0.1% CRM [Kenalog] 1 appl TP BID #2 tube 10/30/16 [Rx] Allergies/Adverse Reactions: Allergies clindamycin Allergy (Verified 10/28/16 09:38) Hives ketorolac [From Toradol] Adverse Reaction (Verified 10/28/16 09:38) Migraine tramadol Adverse Reaction (Verified 10/28/16 09:38) Vomiting codeine Allergy (Unknown, Uncoded 07/30/16 23:31) Difficulty Breathing nsaids Allergy (Unknown, Uncoded 07/30/16 23:31) Difficulty Breathing Certification: Further, I certify that my clinical findings support that this patient is homebound (i.e. absences from home require considerable and taxing effort and are for medical reasons or voodoo services or infrequently or short duration when for other reasons) because: Homebound Reason: Patient requires assistance of a person or device to safely leave home, Leaving home requires considerable and taxing effort due to condition Attestation: My signature below is to certify that this patient is under my care and that I, or nurse practitioner, or a physician's credit assistant working with me, has a face-to -face encounter with this patient.
--- NOTE | 2016-10-30 16:40 | Carotid Imaging Report ---
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 Findings Carotid Duplex: Villarreal scale imaging combined with Doppler flow analysis suggests normal findings bilaterally. Prior Study: No prior study available for comparison. Carotid Results Right PSV EDV Assessment Proximal CCA 75 22 Normal Mid CCA 97 19 Normal Distal CCA 99 25 Normal Bifurcation 87 20 Normal Proximal ICA 57 22 Normal Mid ICA 82 31 Normal Distal ICA 84 28 Normal ECA 100 13 Normal Vertebral Artery 51 12 Antegrade Flow Left PSV EDV Assessment Proximal CCA 102 12 Normal Mid CCA 102 12 Normal Distal CCA 103 20 Normal Bifurcation 81 17 Normal Proximal ICA 88 23 Normal Mid ICA 83 28 Normal Distal ICA 93 33 Normal ECA 67 10 Normal Vertebral Artery 59 19 Antegrade Flow Ratio's Right ICA/CCA Ratio: 0.86 ICA/CCA Values: 84/97 Left ICA/CCA Ratio: 0.91 ICA/CCA Values: 93/102 Updated by Milan Peters MD on 10/30/2016 4:34:39 PM electronically signed on 10/30/2016 4:34:55 PM with status of Final
== END 2016-10-30 14:05 | disposition home health service (06) ==
LOC: 3BNU 19:09 → EMEROO 19:09 → SUATTDRO 23:29 → 3BNU 10-28 00:55
PROVIDERS: ADMIT Internal Medicine; ATTEND Internal Medicine

== ENCOUNTER 2017-01-06 14:09 | Inpatient (IN) ==
[2017-01-06 15:20] LABS: Basophils % 0.3 %; Eosinophils # 0.1 K/mcL (0.0-0.6); Eosinophils % 1.1 %; Hematocrit 35.6 % (35.3-44.9); Hemoglobin 11.1 g/dL (11.5-15.4); Immature Granulocytes % 0.5 % (0-4); Lymphocytes % 30.8 %; Mean Corpuscular HGB Conc 31.2 g/dL (31.6-35.5); Mean Corpuscular Hemoglobin 26.7 pg (28.0-33.3); Mean Corpuscular Volume 85.6 fL (83.0-100.0); Mean Platelet Volume 9.5 fL (9.4-12.4); Monocytes # 0.4 K/mcL (0.0-1.3); Monocytes % 6.4 %; Platelet Count 394 K/mcL (140-400); Red Blood Count 4.16 M/mcL (3.82-4.97); Red Cell Distribution Width 18.2 % (11.5-14.5); Segmented Neutrophils % 60.9 %
[2017-01-06 15:25] LABS: INR 1.1; Prothrombin Time 11.7 Seconds (9.4-12.1)
[2017-01-06 15:27] LABS: Activated Partial Thrombo Time 27.4 Seconds (26.0-36.0)
[2017-01-06 15:35] LABS: Alanine Aminotransferase 26 Units/L (0-55); Albumin 3.6 g/dL (3.5-5.0); Alkaline Phosphatase 104 Units/L (38-126); Aspartate Amino Transferase 19 Units/L (5-34); BUN/Creatinine Ratio 9 (6-26); Bilirubin,Total 0.2 mg/dL (0.2-1.2); Blood Urea Nitrogen 8 mg/dL (7-20); Calcium 10.1 mg/dL (8.6-10.8); Carbon Dioxide 28 mEq/L (19-29); Chloride 103 mEq/L (98-109); Globulin 3.5 g/dL (2.4-3.5); Glucose 199 mg/dL (70-99); Osmolality,Calculated 290 (280-300); Potassium 3.7 mEq/L (3.5-4.5); Sodium 138 mEq/L (136-145); Total Protein 7.1 g/dL (6.0-8.3); eGFR For African Americans > 60 (> 60); eGFR For Non-African Americans > 60 (> 60)
--- NOTE | 2017-01-06 15:50 | Emergency Department Note ---
Addendum entered and electronically signed by Cesar Akers DO 01/06/17 18:45: Patient was having some chest pain and additional workup was added, this resulted in a troponin of 0.24, I went in to reassess the patient, gave her nitroglycerin and aspirin, said her pain still feels that there and she still feels short of breath, also elicited that she had a previous PE, several years ago and is now off Xarelto be used to take it. I gave her an aspirin 325 mg, I spoke then with the nurse practitioner at [facility]46, and noted that the patient had some depressions in V4 V5 no ST segment elevations, and that troponin of 0.24, will add a CTA chest, the patient will go to to [place] [id number] with a CTA of the chest on the way to her bed, hospitalist was made aware of the transfer and the change in the patient's condition, and he will see the patient when she arrives on the floor, she is currently stable but serious condition, and hospitalist aware at time of transfer to floor, will have CTA first, she is still having some chest pain 4 out of 10, blood pressure is 101 systolic, mildly tachycardic still 104. EKG ventricular rate 101 by mouth 174 QRS [address] segment depressions in V4 V5 V6 seen in previous EKG on 12/21/[address] segment elevations. Additional diagnoses : Chest pain, elevated troponin. Addendum entered and electronically signed by Cesar Akers DO 01/06/17 17:49: Prior to discharge, the patient started developing chest pain, her heart rate shot up to 125, she is oxygen dependent and a COPD her, she did have some scattered wheezes on her exam so I ordered a DuoNeb treatment added a troponin and chest x-ray, given the patient now has chest pain, she is also saying that her abdominal pain is intractable and that the Bentyl did not help, we will pursue inpatient admission for GI bleed, chest pain COPD exacerbation. PURSUING INPATIENT ADMISSION PENDING LABWORK, EKG, AND TROPONIN. Original Note: Disposition Clinical Impression: Rectal bleed Hemorrhoids Qualifiers: Hemorrhoid type: unspecified Qualified Code(s): K64.9 - Unspecified hemorrhoids Abdominal pain Qualifiers: Abdominal location: generalized Qualified Code(s): R10.84 - Generalized abdominal pain Disposition: Home, Self-Care Condition: Good Time of Disposition: 17:16 GI Bleed HPI - General Chief complaint: ED GI Bleed Stated complaint: PCP sent per rectal blood clots Time Seen by Provider: 01/06/17 15:39 Source: patient Limitations: no limitations Nursing Notes Reviewed: Yes Vital Signs Reviewed: Yes - History of Present Illness HPI Narrative: 46-year-old female with generalized abdominal pain and bright red blood per rectum. Patient states she has a history of external hemorrhoids, she noticed large amount of bleeding, today it was bright red when she wipes. She states that she also has 2 out of 10 generalized aching, abdominal pain, she has a history of chronic abdominal pain. Patient denies any chest pain, lightheadedness, dizziness, she denies dysuria or hematuria, she has no concerns for . She was recently treated with iron supplements for iron deficiency from a previous low hemoglobin. Pt Subjective Complaint: blood on toilet paper Onset (ago): minute(s) Consistency: intermittent, now resolved Severity: mild Improves with: nothing Worsens with: nothing Context: history of GI bleed, hemorrhoids Associated symptoms: Reports: nausea. Denies: vomiting, epistaxis, fever, chills, headaches - Related Data Home Medications Medication Instructions Recorded Confirmed Omeprazole [PriLOSEC] 40 mg PO DAILY 03/17/15 01/06/17 Albuterol Sulfate [Proair Hfa] 2 puff IH Q4H PRN 03/16/16 01/06/17 metFORMIN [Glucophage] 1,000 mg PO DAILY 08/29/16 01/06/17 Buspirone HCl [Buspar] 10 mg PO TID 10/28/16 01/06/17 Ondansetron ODT [Zofran ODT] 4 mg SL TID PRN 10/28/16 01/06/17 Venlafaxine XR (24 HR) [Effexor Xr] 300 mg PO DAILY 10/28/16 01/06/17 ALPRAZolam [Xanax 1 MG Tablet] 1 mg PO TID PRN 01/06/17 01/06/17 Ranitidine HCl [Zantac] 300 mg PO DAILY 01/06/17 01/06/17 Tiotropium Br/Olodaterol HCl 2 puff IH DAILY 01/06/17 01/06/17 [Stiolto Respimat Inhal [place]] Previous Rx's Medication Instructions Recorded Ipratropium/Albuterol Neb [Duoneb] 3 ml IH Q6H PRN #100 inhsol 03/17/16 Aspirin 81 mg PO DAILY #30 tab.chew 05/12/16 Atorvastatin [Lipitor] 40 mg PO HS #30 tablet 05/12/16 Metoprolol [Lopressor] 25 mg PO BID #60 tablet 05/12/16 Gabapentin [Neurontin] 800 mg PO TID #90 capsule 08/31/16 Triamcinolone Acet 0.1% CRM 1 appl TP BID #2 tube 10/30/16 [Kenalog] Dicyclomine [Bentyl] 10 mg PO QID PRN #20 capsule 01/06/17 Allergies Allergy/AdvReac Type Severity Reaction Status Date / Time clindamycin Allergy Hives Verified 01/06/17 14:39 ketorolac [From Toradol] AdvReac Migraine Verified 01/06/17 14:39 tramadol AdvReac Vomiting Verified 01/06/17 14:39 codeine Allergy Unknown Difficulty Uncoded 01/06/17 14:39 Breathing nsaids Allergy Unknown Difficulty Uncoded 01/06/17 14:39 Breathing All systems ED: reviewed and negative except as stated. Constitutional: Denies: fever, chills Cardiovascular: Denies: chest pain Gastrointestinal: Reports: as per HPI, abdominal pain, hematochezia. Denies: nausea, hematemesis Genitourinary: Denies: urgency, dysuria Musculoskeletal: Denies: back pain, neck pain Integumentary: Denies: rash, abrasion Neurological: Denies: headache Past Medical History - Past Medical History Attestation: Yes The following information was validated with the patient. 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 history: Reports: polycystic ovary syndrome - Social History Smoking Status: Current every day smoker Smokeless Tobacco Status: No Alcohol use: Reports: none Drug use: Reports: none Physical Exam Constitutional: alert and oriented, in NAD, vital signs mild tachycardia HEENT: NCAT, sclera anicteric Neck: normal inspection, neck is supple, trachea midline Resp: normal chest inspection, CTA bilaterally, no resp distress CV: RRR, no m/g/r GI: Obese, normal inspection, Soft, mildly tender diffusely, no rigidity or guarding., no hepatosplenomegaly, BS x 4 quadrants, negative Fountain's Sign, no tenderness at McBurney' point, Negative Rovsing's Rectal: ogden colored, external hemorrhoid 4 oclock, with no evidence of bleeding or thrombosis, no internal hemorrhoids Back: normal inspection, negative CVA bilaterally, no tenderness to palpation Neuro: A&O3, no gross motor or sensory deficits bilaterally MSK: normal inspection, bilateral UE and LE with normal ROM Skin: No rashes, skin warm, dry, intact - General Limitations: no limitations General appearance: alert Course Course Narrative: 46-year-old female with abdominal pain, is diffuse, her abdomen is nontender and her vital signs are stable except for mild tachycardia, patient has no nausea we will try by mouth challenge, given IM Bentyl for pain control, internal exam did show an external hemorrhoid but no evidence of bleeding, her stool had no bright red blood, it was 10 and soft, she is no evidence of internal hemorrhoids, her hemoglobin was 11.1, she already takes iron supplements, has been taking these for several months, and is actually improved from last time she is in the ED so at this point we will have her follow-up with her primary care physician, Maureen for home return if any worsening symptoms. Initial workup was started at triage, this included CBC CMP lipase, ASIC lab work, we will repeat check this, add urinalysis test, and Hemoccult stool. - Reevaluation(s) Reevaluation #1: Occult stool was positive, the patient is hemodynamically stable at the time of ED disposition, pain improved, we will discharge home in stable condition. Time: 17:22 Vital Signs Temperature 98.4 F 01/06/17 14:39 Pulse Rate 104 01/06/17 14:39 Respiratory Rate 20 01/06/17 14:39 Blood Pressure 113/86 01/06/17 14:39 O2 Sat by Pulse Oximetry 96 01/06/17 14:39 Temperature 97.8 F 01/06/17 19:26 Pulse Rate 99 01/06/17 19:26 Respiratory Rate 20 01/06/17 19:26 Blood Pressure 112/85 01/06/17 19:26 O2 Sat by Pulse Oximetry 96 01/06/17 19:26 Oxygen Delivery Oxygen Delivery Nasal Cannula GI Bleed - [facility] Narrative Medical decision making narrative: 46-year-old female with mild bright red blood per rectum, Speck causes of internal or external hemorrhoids, no evidence in the emergency Department, hemoglobin stable, showing no acute distress with stable vital signs, offered Bentyl at home for pain control, close follow up with primary care and return to the ED if any worsening symptoms, I did instruct the patient that she may need a colonoscopy in the future. To continue taking her iron supplements and return if any worsening condition. - Differential Diagnosis Likely: hemorrhoids, infectious diarrhea - Medical Records Medical records reviewed: Yes I reviewed the patient's medical records. - Lab Data Lab results reviewed: Yes I reviewed the patient's lab results. Result diagrams: 01/06/17 15:12 01/06/17 15:12 Lab Results 01/06/17 01/06/17 01/06/17 Range/Units 15:12 15:12 15:12 WBC 6.5 (4.3-11.1) K/mcL RBC 4.16 (3.82-4.97) M/mcL Hgb 11.1 L (11.5-15.4) g/dL Hct 35.6 (35.3-44.9) % MCV 85.6 (83.0-100.0) fL MCH 26.7 L (28.0-33.3) pg MCHC 31.2 L (31.6-35.5) g/dL RDW 18.2 H (11.5-14.5) % Plt Count 394 (140-400) K/mcL MPV 9.5 (9.4-12.4) fL Immature Gran % 0.5 (0-4) % Seg Neutrophils % 60.9 % Lymphocytes % 30.8 % Monocytes % 6.4 % Eosinophils % 1.1 % Basophils % 0.3 % Neutrophils # 4.0 (1.6-8.9) K/mcL Lymphocytes # 2.0 (0.6-4.6) K/mcL Monocytes # 0.4 (0.0-1.3) K/mcL Eosinophils # 0.1 (0.0-0.6) K/mcL Basophils # 0.0 (0.0-0.2) K/mcL PT 11.7 (9.4-12.1) Seconds INR 1.1 APTT 27.4 (26.0-36.0) Seconds Sodium 138 (136-145) mEq/L Potassium 3.7 (3.5-4.5) mEq/L Chloride 103 (98-109) mEq/L Carbon Dioxide 28 (19-29) mEq/L BUN 8 (7-20) mg/dL Creatinine 0.87 (0.57-1.11) mg/dL Est GFR ( Amer) > 60 (> 60) Est GFR (Non-Af Amer) > 60 (> 60) BUN/Creatinine Ratio 9 (6-26) Glucose 199 H (70-99) mg/dL Calculated Osmolality 290 (280-300) Calcium 10.1 (8.6-10.8) mg/dL Total Bilirubin 0.2 (0.2-1.2) mg/dL AST 19 (5-34) Units/L ALT 26 (0-55) Units/L Alkaline Phosphatase 104 (38-126) Units/L Troponin I (0-0.03) ng/mL B-Natriuretic Peptide (0-100) pg/mL Serum Total Protein 7.1 (6.0-8.3) g/dL Albumin 3.6 (3.5-5.0) g/dL Globulin 3.5 (2.4-3.5) g/dL Albumin/Globulin Ratio 1.0 L (1.1-2.2) Urine Color (Yellow) Urine Clarity (Clear) Urine pH (5.0-8.0) pH Units Ur Specific [place] (1.010-1.025) Urine Protein (Neg-Trace) mg/dL Urine Glucose (UA) (Normal) mg/dL Urine Ketones (Negative) mg/dL Urine Blood (Negative) Urine Nitrite (Negative) Urine Bilirubin (Negative) Urine Urobilinogen (Normal) mg/dL Ur Leukocyte Esterase (Negative) Urine Microscopic RBC (0-3) per hpf Urine Microscopic WBC (0-3) per hpf Ur Squamous Epith Cells (None-Few) per lpf Urine Bacteria (None-Few) per hpf Hyaline Casts (None-Few) per lpf Ur Culture Indicated? (NO) Urine Test (Negative) Stool Occult Blood (Negative) Blood Type Antibody Screen 01/06/17 01/06/17 01/06/17 Range/Units 15:12 15:12 15:12 WBC (4.3-11.1) K/mcL RBC (3.82-4.97) M/mcL Hgb (11.5-15.4) g/dL Hct (35.3-44.9) % MCV (83.0-100.0) fL MCH (28.0-33.3) pg MCHC (31.6-35.5) g/dL RDW (11.5-14.5) % Plt Count (140-400) K/mcL MPV (9.4-12.4) fL Immature Gran % (0-4) % Seg Neutrophils % % Lymphocytes % % Monocytes % % Eosinophils % % Basophils % % Neutrophils # (1.6-8.9) K/mcL Lymphocytes # (0.6-4.6) K/mcL Monocytes # (0.0-1.3) K/mcL Eosinophils # (0.0-0.6) K/mcL Basophils # (0.0-0.2) K/mcL PT (9.4-12.1) Seconds INR APTT (26.0-36.0) Seconds Sodium (136-145) mEq/L Potassium (3.5-4.5) mEq/L Chloride (98-109) mEq/L Carbon Dioxide (19-29) mEq/L BUN (7-20) mg/dL Creatinine (0.57-1.11) mg/dL Est GFR ( Amer) (> 60) Est GFR (Non-Af Amer) (> 60) BUN/Creatinine Ratio (6-26) Glucose (70-99) mg/dL Calculated Osmolality (280-300) Calcium (8.6-10.8) mg/dL Total Bilirubin (0.2-1.2) mg/dL AST (5-34) Units/L ALT (0-55) Units/L Alkaline Phosphatase (38-126) Units/L Troponin I 0.24 H* (0-0.03) ng/mL B-Natriuretic Peptide < 10 (0-100) pg/mL Serum Total Protein (6.0-8.3) g/dL Albumin (3.5-5.0) g/dL Globulin (2.4-3.5) g/dL Albumin/Globulin Ratio (1.1-2.2) Urine Color (Yellow) Urine Clarity (Clear) Urine pH (5.0-8.0) pH Units Ur Specific [place] (1.010-1.025) Urine Protein (Neg-Trace) mg/dL Urine Glucose (UA) (Normal) mg/dL Urine Ketones (Negative) mg/dL Urine Blood (Negative) Urine Nitrite (Negative) Urine Bilirubin (Negative) Urine Urobilinogen (Normal) mg/dL Ur Leukocyte Esterase (Negative) Urine Microscopic RBC (0-3) per hpf Urine Microscopic WBC (0-3) per hpf Ur Squamous Epith Cells (None-Few) per lpf Urine Bacteria (None-Few) per hpf Hyaline Casts (None-Few) per lpf Ur Culture Indicated? (NO) Urine Test (Negative) Stool Occult Blood (Negative) Blood Type A POSITIVE Antibody Screen NEGATIVE 01/06/17 01/06/17 01/06/17 Range/Units 16:10 16:10 16:45 WBC (4.3-11.1) K/mcL RBC (3.82-4.97) M/mcL Hgb (11.5-15.4) g/dL Hct (35.3-44.9) % MCV (83.0-100.0) fL MCH (28.0-33.3) pg MCHC (31.6-35.5) g/dL RDW (11.5-14.5) % Plt Count (140-400) K/mcL MPV (9.4-12.4) fL Immature Gran % (0-4) % Seg Neutrophils % % Lymphocytes % % Monocytes % % Eosinophils % % Basophils % % Neutrophils # (1.6-8.9) K/mcL Lymphocytes # (0.6-4.6) K/mcL Monocytes # (0.0-1.3) K/mcL Eosinophils # (0.0-0.6) K/mcL Basophils # (0.0-0.2) K/mcL PT (9.4-12.1) Seconds INR APTT (26.0-36.0) Seconds Sodium (136-145) mEq/L Potassium (3.5-4.5) mEq/L Chloride (98-109) mEq/L Carbon Dioxide (19-29) mEq/L BUN (7-20) mg/dL Creatinine (0.57-1.11) mg/dL Est GFR ( Amer) (> 60) Est GFR (Non-Af Amer) (> 60) BUN/Creatinine Ratio (6-26) Glucose (70-99) mg/dL Calculated Osmolality (280-300) Calcium (8.6-10.8) mg/dL Total Bilirubin (0.2-1.2) mg/dL AST (5-34) Units/L ALT (0-55) Units/L Alkaline Phosphatase (38-126) Units/L Troponin I (0-0.03) ng/mL B-Natriuretic Peptide (0-100) pg/mL Serum Total Protein (6.0-8.3) g/dL Albumin (3.5-5.0) g/dL Globulin (2.4-3.5) g/dL Albumin/Globulin Ratio (1.1-2.2) Urine Color Yellow (Yellow) Urine Clarity Clear (Clear) Urine pH 6.0 (5.0-8.0) pH Units Ur Specific [place] 1.012 (1.010-1.025) Urine Protein Negative (Neg-Trace) mg/dL Urine Glucose (UA) 100 H (Normal) mg/dL Urine Ketones Negative (Negative) mg/dL Urine Blood Negative (Negative) Urine Nitrite Negative (Negative) Urine Bilirubin Negative (Negative) Urine Urobilinogen Normal (Normal) mg/dL Ur Leukocyte Esterase Small H (Negative) Urine Microscopic RBC 5-15 H (0-3) per hpf Urine Microscopic WBC 3-5 H (0-3) per hpf Ur Squamous Epith Cells Many H (None-Few) per lpf Urine Bacteria None Seen (None-Few) per hpf Hyaline Casts None Seen (None-Few) per lpf Ur Culture Indicated? YES A (NO) Urine Test Negative (Negative) Stool Occult Blood Positive A (Negative) Blood Type Antibody Screen Attestation Statement - Attestation Attestation: I examined this patient and my medical decision-making was reviewed with the Resident Physician. I agree with the documented findings, disposition and treatment plan as described except to the extent set forth below. Painless bright red rectal bleeding with clots. Hemoglobin is actually up about 2 points compared to where she was a couple of weeks ago. Weight in the ER course, she developed chest pain and shortness of breath. EKG was unchanged from previous, but her troponin was 0.24. She has had numerous troponins in the past, always negative. I do not suspect PE, but I did not suspect ischemia either. Follow submassive PE seems unlikely, she does have mild tachycardia and elevated troponin. CT scan is certainly indicated at this point. Possible causes accepted the patient for admission and will follow up on results of the CT scan. She remains stable with a normal blood pressure at the time of her transfer to the floor.
[2017-01-06 16:24] LABS: Bilirubin,Urine Negative (Negative); Blood,Urine Negative (Negative); Clarity,Urine Clear (Clear); Color,Urine Yellow (Yellow); Glucose,Urine (UA) 100 mg/dL (Normal); Ketones,Urine Negative (Negative); Leukocyte Esterase,Urine Small (Negative); Nitrite,Urine Negative (Negative); Protein,Urine Negative (Neg-Trace); Specific Gravity,Urine 1.012 (1.010-1.025); Urobilinogen,Urine Normal (Normal)
[2017-01-06 16:26] LABS: Bacteria,Urine None Seen per hpf (None-Few); Hyaline Casts,Urine None Seen per lpf (None-Few); Squamous Epithelial Cell,Urine Many per lpf (None-Few)
[2017-01-06] MEDS ORDERED: Dicyclomine 20 MG/2 ML AMPUL IM ONE (17:04)
[2017-01-06] MEDS ORDERED: *HR* HYDROcodone/Acet 7.5/325 mg TABLET PO ONE (17:31)
[2017-01-06] MEDS ORDERED: 0.9 % Sodium Chloride 1,000 ML IVC ONE (17:45)
[2017-01-06] MEDS ORDERED: Ondansetron 4 MG/2 ML VIAL IVP ONE (17:46)
[2017-01-06] MEDS ORDERED: Ipratropium/Albuterol Neb 3 ML IH ONE (17:46)
[2017-01-06] MEDS ORDERED: Nitroglycerin 0.4 MG TAB.SUBL SL ONE (18:21)
[2017-01-06] MEDS ORDERED: Aspirin 325 MG TABLET PO ONE (18:23)
[2017-01-06] MEDS ORDERED: Naloxone 0.4 MG/ML INJ IVP PRN (21:18)
[2017-01-06] MEDS ORDERED: Acetaminophen 325 MG TABLET PO PRN (21:18)
[2017-01-06] MEDS ORDERED: D5% in Water 1,000 ML IVC PRN (21:20)
[2017-01-06] MEDS ORDERED: *HR* Dextrose 50 % in Water (Syg) 50 ML SYRINGE IVP PRN (21:20)
[2017-01-06] MEDS ORDERED: Dextrose Gel 15 GM PO PRN ×2 (21:20)
[2017-01-06] MEDS ORDERED: Albuterol 2.5 MG/3 ML NEBULIZER IH PRN (21:21)
[2017-01-06] MEDS ORDERED: *HR* Morphine 2 MG/ML SYRINGE IVP PRN (21:25)
[2017-01-06] MEDS ORDERED: Nitroglycerin 0.4 MG TAB.SUBL SL PRN (21:29)
--- NOTE | 2017-01-06 21:34 | Internal Med History&Physical ---
<Ivory Aparicio - Last Filed: 01/06/17 22:37> Date of Encounter: 01/06/17 Time of Encounter: 21:30 Assessment and Plan (1) Rectal bleed Current visit: Yes Status: Acute 1 patient has history of external hemorrhoids did experience some bleeding during defecation today bleeding has stopped. Occult stool was positive. Hemoglobin stable at this time. We will continue to monitor CBC (2) Abdominal pain Current visit: Yes Status: Acute 1 patient had colonoscopy approximately 3-4 years ago after her hospital question colitis-we will initiate on Zosyn and obtain CT of abdomen 2 nothing by mouth for now 3 continue with morphine for pain 4 Zofran as needed for nausea Qualifiers: Abdominal location: generalized Qualified Code(s): R10.84 - Generalized abdominal pain (3) Tobacco abuse Current visit: No Status: Chronic 1 patient stopped smoking-nicotine patch (4) Hypertension Current visit: No Status: Chronic We will continue with home medications Qualifiers: Hypertension type: essential hypertension Qualified Code(s): I10 - Essential (primary) hypertension (5) COPD (chronic obstructive pulmonary disease) Current visit: No Status: Chronic 1 continue with oxygen titrated to maintain SPO2 greater than 92% 2 continue with bronchodilators Qualifiers: COPD type: unspecified COPD Qualified Code(s): J44.9 - Chronic obstructive pulmonary disease, unspecified (6) Diabetes mellitus, type 2 Current visit: No Status: Chronic 1 Accu-Cheks before meals at bedtime we will sign scale insulin we will hold metformin for now-resume on discharge Qualifiers: Diabetes mellitus complication status: without complication 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 We will continue with statin beta pete aspirin Qualifiers: Coronary Disease-Associated Artery/Lesion type: [place] artery [place] vs. transplanted heart: [place] heart Associated angina: without angina Qualified Code(s): I25.10 - Atherosclerotic heart disease of [place] coronary artery without angina pectoris (8) Chest pain Current visit: Yes Status: Acute 1 patient having midsternal CP, EKG with T wave inversion in lateral lead. First troponin was 0.2 see her for second was 0. We will continue to trend troponins 2 consult cardiology patient be nothing by mouth after midnight 3 we will continue with aspirin and statin beta pete 4 nitroglycerin as needed as well as morphine-oxygen as needed Qualifiers: Chest pain type: unspecified Qualified Code(s): R07.9 - Chest pain, unspecified Internal Medicine - H&P: HPI Chief complaint: abd pain Admitted From: Emergency Dept Plans for Post Hospital Care: Home History of present illness: Ms. Cervantes is a 46 year old female past medical history of coronary disease COPD oxygen dependent tobacco abuse pulmonary embolism diabetes hyperlipidemia GERD tobacco abuse. At approximately 11 AM this morning patient went to the bathroom to have a bowel movement upon wiping, she noted bright red blood on tissue paper there was also dark blood with clots as well as bright blood in the toilet. She became concerned and called her primary care physician who advised reported to the ER. Patient does have a past history of pulmonary embolism and was on Xarelto however she did develop rectal bleeding and Xarelto was stopped. She underwent a colonoscopy 3-4 years ago at [facility]- questionable colitis. She presented to the ER with the above complaints. According to ER records lab work did reveal hemoglobin of 11.1 which is up from last month when it was 9.2. Chemistry was unremarkable troponin was 0.24 BNP was less than 10 occult stool was positive chest x-ray with no acute process. It appears echo was completed EF of 60-65% no systolic dysfunction, undetermined diastolic function. Patient did have a cardiac catheterization in April 2016 with no stent placement in minimal one-vessel disease. Patient did develop some wheezing and chest pain while in the ER. She described the pain as pressure was nonradiating no relieving or aggravating factors. she was given breathing treatments as well as CTA was obtained which was negative for PE. She has been admitted for further workup evaluation. Presently the patient is experiencing 5 out of 10 chest pain as well as 7 out of 10 abdominal pain which she describes as cramping occurring in her lower abdomen. She does have some nausea she denies any history of fevers chills vomiting or diarrhea. Heart sounds are regular S1-S2 with no rubs clicks gallops murmurs noted. Lungs sounds are clear abdomen is soft nontender slight pedal edema in the lower shins bilaterally. EKG with some slight ST depression in lateral leads. I reviewed this case with - feel obtain stat troponin as well as CT of abdomen with oral contrast. The troponin continues to elevate we will initiate heparin drip Past Med Surg Social Fam HX - Past Medical History Medical history: asthma, CHF, COPD, coronary artery disease, diabetes, GERD, hyperlipidemia, hypertension, pulmonary embolus Psychiatric history: depression - Past Surgical History Surgical History: orthopedic, other - Social History Smoking Status: Current every day smoker Packs per day: 6 cigs/day Smokeless Tobacco Status: No Alcohol use: none Drug use: none - Family History Mother Adopted: No Family Member Ethnicity: Non- Living Status: Still Living Hx Family Cardiac Disorders: Yes Hx Family Respiratory Disorders: No Hx Family Cancer: No Hx Family GI Disorders: No Hx Family Endocrine Disorder: Yes (diabetes) Hx Family Neuromuscular Disorders: No Hx Family Neurologic Disorders: No Hx Family HEENT Disorders: No Hx Family Autoimmune Disorders: Yes Father Adopted: No Family Member Ethnicity: Non- Living Status: Still Living Hx Family Cardiac Disorders: Yes (HTN) Hx Family Respiratory Disorders: No Hx Family Cancer: No Hx Family GI Disorders: No Hx Family Endocrine Disorder: Yes (DM) Hx Family Neuromuscular Disorders: Yes (ALZHEIMERS) Hx Family Neurologic Disorders: Yes (ALZHIEIMERS) Hx Family HEENT Disorders: No Hx Family Autoimmune Disorders: No Internal Medicine - H&P: Meds Omeprazole [PriLOSEC] 40 mg PO DAILY 03/17/15 [History] Albuterol Sulfate [Proair Hfa] 2 puff IH Q4H PRN 03/16/16 [History] Ipratropium/Albuterol Neb [Duoneb] 3 ml IH Q6H PRN #100 inhsol 03/17/16 [Rx] Aspirin 81 mg PO DAILY #30 tab.chew 05/12/16 [Rx] Atorvastatin [Lipitor] 40 mg PO HS #30 tablet 05/12/16 [Rx] Metoprolol [Lopressor] 25 mg PO BID #60 tablet 05/12/16 [Rx] metFORMIN [Glucophage] 1,000 mg PO DAILY 08/29/16 [History] Gabapentin [Neurontin] 800 mg PO TID #90 capsule 08/31/16 [Rx] Buspirone HCl [Buspar] 10 mg PO TID 10/28/16 [History] Ondansetron ODT [Zofran ODT] 4 mg SL TID PRN 10/28/16 [History] Venlafaxine XR (24 HR) [Effexor Xr] 300 mg PO DAILY 10/28/16 [History] Triamcinolone Acet 0.1% CRM [Kenalog] 1 appl TP BID #2 tube 10/30/16 [Rx] ALPRAZolam [Xanax 1 MG Tablet] 1 mg PO TID PRN 01/06/17 [History] Dicyclomine [Bentyl] 10 mg PO QID PRN #20 capsule 01/06/17 [Rx] Ranitidine HCl [Zantac] 300 mg PO DAILY 01/06/17 [History] Tiotropium Br/Olodaterol HCl [Stiolto Respimat Inhal [place]] 2 puff IH DAILY 05/15 [History] Allergies clindamycin Allergy (Verified 01/06/17 14:39) Hives ketorolac [From Toradol] Adverse Reaction (Verified 01/06/17 14:39) Migraine tramadol Adverse Reaction (Verified 01/06/17 14:39) Vomiting codeine Allergy (Unknown, Uncoded 01/06/17 14:39) Difficulty Breathing nsaids Allergy (Unknown, Uncoded 01/06/17 14:39) Difficulty Breathing All Systems PM: A 10-system review of systems was performed and is negative for pertinent findings except as documented above in the HPI. - Constitutional Constitutional: no chills, no fever(s), no night sweats - EENT Eyes: no change in vision, no discharge, no pain, no photophobia Nose, mouth and throat: no dysphagia, no nasal discharge, no neck pain, no sore throat - Cardiovascular Cardiovascular ROS IM: chest pain, dyspnea, edema, no diaphoresis, no lightheadedness, no palpitations, no syncope - Respiratory Respiratory: dyspnea, no cough, no wheezing, no excessive phlegm production - Gastrointestinal Gastrointestinal: abdominal pain, nausea, no diarrhea, no hematemesis, no hematochezia, no melena, no vomiting - Genitourinary Genitourinary: no change in urinary stream, no dysuria, no flank pain, no hematuria - Musculoskeletal Musculoskeletal ROS IM: no numbness, no tingling - Integumentary Integumentary IM: no rash, no unusual bruising - Neurological Neurological ROS: no confusion, no convulsions, no focal weakness, no numbness, no tingling, no tremor(s) - Hematologic/Lymphatic Hematologic/Lymphatic: no easy bruising - Constitutional Vitals: Temp Pulse Resp BP Pulse Ox 97.8 F 99 20 112/85 96 01/06/17 19:26 01/06/17 19:26 01/06/17 19:26 01/06/17 19:26 01/06/17 19:26 General appearance: Present: A&O X 3, morbidly obese - Head Head exam: Present: atraumatic, normocephalic - Eye Eye exam: Present: PERRL, conjuntiva pink, sclera anicteric Pupils: Present: PERRL - Neck Neck exam general surgery: Present: supple, trachea midline. Absent: lymphadenopathy - Respiratory Respiratory exam: Present: CTAB, wheezes. Absent: accessory muscle use, rales, rhonchi - Cardiovascular Cardiovascular exam: Present: RRR, +S1, +S2. Absent: diastolic murmur, gallop, rubs, systolic murmur - GI/Abdominal GI/Abdominal exam: Present: normal bowel sounds, soft, tenderness, no peritoneal signs. Absent: distended - Extremities Exam Extremities exam: Present: warm, radial pulses palpable and symetrical. Absent : calf tenderness, cyanotic, pedal edema - Neurological Exam Neurological exam: Present: CN II-XII intact, oriented X3, no focal deficits. Absent: pronater drift, facial droop, speech deficit - Skin Skin exam: Present: dry, intact Internal Med - H&P Results - Labs CBC & Chem 7: 01/06/17 15:12 01/06/17 15:12 - EKG Data EKG shows normal: sinus rhythm Rate: tachycardia - EKG Data Interpretation IM: ischemic changes - Impressions ITS Impressions Chest CTA 01/06/17 18:35 IMPRESSION: No evidence of pulmonary embolism or acute pulmonary abnormality. D/ / Carlos Cunningham MD / Carlos Cunningham MD Interpreting Provider: Carlos Cunningham MD - Diagnostic Studies Other Images Additional comments: Chest X-Ray 01/06/17 14:42 IMPRESSION: No acute abnormality. D/ / Jared Manrique MD / Jared Manrique MD Interpreting Provider: Jared Manrique MD Chest CTA 01/06/17 18:35 IMPRESSION: No evidence of pulmonary embolism or acute pulmonary abnormality. D/ / Carlos Cunningham MD / Carlos Cunningham MD Interpreting Provider: Carlos Cunningham MD <HomarSis gonzalesran - Last Filed: 01/07/17 02:03> Date of Encounter: 01/07/17 - EENT Eyes: no blurry vision Ears: no ear pain, no tinnitus Nose, mouth and throat: no nasal congestion, no sinus pressure - Cardiovascular Cardiovascular ROS IM: chest pain, dyspnea, edema - Respiratory Respiratory: dyspnea, no hemoptysis - Gastrointestinal Gastrointestinal: abdominal pain, nausea, no diarrhea, no vomiting - Genitourinary Genitourinary: no dysuria, no hematuria - Musculoskeletal Musculoskeletal ROS IM: no arthralgias, no back pain - Psychiatric Psychiatric: no anxiety, no depression - Allergic/Immunologic Allergic/Immunologic: wheezing, no GI upset with certain foods - Constitutional Vitals: Temp Pulse Resp BP Pulse Ox 97.4 F L 94 18 132/94 97 01/07/17 00:24 01/07/17 00:24 01/07/17 00:24 01/07/17 00:24 01/07/17 00:24 General appearance: Present: cooperative, mild distress, A&O X 3, morbidly obese - Eye Eye exam: Absent: scleral icterus - ENT ENT exam: Present: mucous membranes moist, normal exam - Neck Neck exam general surgery: Present: full ROM, supple. Absent: tenderness - Expanded Neck Exam Neck exam: Absent: carotid bruit - Cardiovascular Cardiovascular exam: Present: RRR, +S1, +S2 - GI/Abdominal GI/Abdominal exam: Present: normal bowel sounds, soft, tenderness (mild, diffuse ), no peritoneal signs. Absent: guarding, hepatomegaly, rebound, splenomegaly - Back Exam Back exam: Absent: CVA tenderness (L), CVA tenderness (R) - Neurological Exam Neurological exam: Present: alert, oriented X3, no focal deficits - Psychiatric Psychiatric exam: Present: normal affect, normal mood - Skin Skin exam: Present: dry, warm Internal Med - H&P Results - Labs CBC & Chem 7: 01/06/17 15:12 01/06/17 15:12 Labs: Cardiac Enzymes 01/06/17 Range/Units 21:40 Troponin I 0.00 (0-0.03) ng/mL - EKG Data -: EKG Interpreted by Myself EKG shows normal: sinus rhythm - EKG Data Prior EKG available for review: yes When compared to previous EKG: there are significant changes Interpretation IM: ischemic changes EKG comments: 01/07/17 01:[address]-T depression and T wave inversion laterally - Impressions ITS Impressions Chest CTA 01/06/17 18:35 IMPRESSION: No evidence of pulmonary embolism or acute pulmonary abnormality. D/ / Carlos Cunningham MD / Carlos Cunningham MD Interpreting Provider: Carlos Cunningham MD Abdomen CT 01/06/17 21:22 IMPRESSION: Normal examination of the abdomen. Imaging of the pelvis was neither requested nor performed. D/ / Fidel Oropeza MD / Fidel Oropeza MD Interpreting Provider: Fidel Oropeza MD - Attending Attestation I discussed the patient AKUTAN, PMH, ROS, lab data, and exam findings with Ivory Aparicio CNP. I then saw and examined patient independently as well. Pt. gives history of chest pain and has some EKG's changes which are suggestive of ischemia. Initial troponin was 0.24 and repeat troponin was normal at 0.0. When I saw patient, her chest pain had essentially resolved and was 1 out of 10. Her abdominal pain is also vague and non-specific. She denies any history of diverticulitis, but she has had colitis about 3-4 years ago. I'm somewhat concerned for diverticulits and, thus, I recommended a CT scan of abdomen. I agree with Rajesh, but I will also add Flagyl for now. I also agree with cardiology consultation given her chest pain, EKG changes, and initial tropnin elevation. We will hold off on heparin for now as repeat troponin is normal. We will follow her closely and adjust treatment per her clinical course. Other than my comments above and noted exam findings, I agree with Ivory's assessment and plan.
[2017-01-06] MEDS: *HR* Morphine 2 MG/ML SYRINGE IVP PRN (22:29)
[2017-01-06] MEDS: ALPRAZolam 1 MG TABLET PO PRN (23:59)
[2017-01-07] MEDS ORDERED: Piperacillin/Tazobactam 3.375 GM in D5% in Water (Mini-Bag+) 100 ML IVPB SCH
[2017-01-07] MEDS: Ipratropium/Albuterol Neb 3 ML IH SCH ×2 (00:02→04:23)
[2017-01-07] MEDS ORDERED: *HR* Morphine 2 MG/ML SYRINGE IVP ONE (00:42)
[2017-01-07] MEDS: Insulin LISPRO 300 UNITS/3 ML VIAL SQ SCH ×4 (01:07→17:28)
[2017-01-07] MEDS: Nicotine 14 MG PATCH.TD24 TD SCH ×2 (01:17→13:08)
[2017-01-07 04:13] LABS: Basophils % 0.3 %; Eosinophils # 0.1 K/mcL (0.0-0.6); Eosinophils % 1.5 %; Hematocrit 32.4 % (35.3-44.9); Hemoglobin 9.9 g/dL (11.5-15.4); Immature Granulocytes % 0.3 % (0-4); Lymphocytes # 2.3 K/mcL (0.6-4.6); Mean Corpuscular HGB Conc 30.6 g/dL (31.6-35.5); Mean Corpuscular Hemoglobin 26.6 pg (28.0-33.3); Mean Corpuscular Volume 87.1 fL (83.0-100.0); Monocytes # 0.5 K/mcL (0.0-1.3); Monocytes % 7.7 %; Neutrophils # 2.9 K/mcL (1.6-8.9); Platelet Count 361 K/mcL (140-400); Red Blood Count 3.72 M/mcL (3.82-4.97); Red Cell Distribution Width 18.3 % (11.5-14.5); Segmented Neutrophils % 50.2 %
[2017-01-07 04:47] LABS: BUN/Creatinine Ratio 7 (6-26); Blood Urea Nitrogen 6 mg/dL (7-20); Calcium 9.4 mg/dL (8.6-10.8); Carbon Dioxide 26 mEq/L (19-29); Chloride 104 mEq/L (98-109); Chol/HDL Ratio 3.8 (0-4.9); Cholesterol 169 mg/dL (< 200); Glucose 213 mg/dL (70-99); HDL Cholesterol 45 mg/dL (40-59); LDL Cholesterol,Calculated 84 mg/dL (0-99); Magnesium 1.6 mg/dL (1.6-2.6); Osmolality,Calculated 290 (280-300); Potassium 3.6 mEq/L (3.5-4.5); Sodium 138 mEq/L (136-145); Triglycerides 201 mg/dL (< 150); eGFR For African Americans > 60 (> 60); eGFR For Non-African Americans > 60 (> 60)
[2017-01-07] MEDS: *HR* Morphine 2 MG/ML SYRINGE IVP PRN ×5 (04:49→21:44)
[2017-01-07] MEDS ORDERED: MetroNIDAZOLE 500 MG/100 ML 500 MG/100 ML BAG IVPB SCH (08:00)
[2017-01-07] MEDS ORDERED: Ipratropium/Albuterol Neb 3 ML IH PRN (08:08)
[2017-01-07] MEDS: ALPRAZolam 1 MG TABLET PO PRN ×2 (08:56→13:57)
[2017-01-07] MEDS: Famotidine 20 MG TABLET PO SCH (08:56)
[2017-01-07] MEDS: Sennosides/Docusate Sodium TABLET PO SCH ×2 (08:56→21:50)
[2017-01-07] MEDS: Gabapentin 400 MG CAPSULE PO SCH ×3 (08:56→21:50)
[2017-01-07] MEDS: (Tiotropium Br/Olodaterol Hcl [Stiolto Respimat Inhal) IH SCH (08:57)
--- NOTE | 2017-01-07 08:58 | Internal Med Progress Note ---
Date of Encounter: 01/07/17 Time of Encounter: 08:30 - Assessment and plan (1) Diverticulitis Current Visit: Yes Status: Suspected Assessment and plan: Suspected diverticulitis of the sigmoid colon. Patient has left lower quadrant abdominal pain and is tender in the left iliac fossa on exam. Patient also has bleeding. She took a blood test was positive. CT scan of the abdomen was unable to determine the sigmoid colon. Will obtain CT scan of the pelvis with intravenous contrast. Patient will be changed to inpatient status. High risk due to risk of sepsis and for the GI bleed which may lead to anemia. Expected to be hospital for at least 2 midnights. Expected discharge disposition is to home. Clear liquid diet. Discontinue Zosyn. Continue metronidazole. If the patient has further hematochezia or drop in her hemoglobin, we will consult surgery for possible colonoscopy. For now, the bleeding appears to be a complication of possible diverticulitis. Monitor hemoglobin and hematocrit. Qualifiers: Diverticulitis site: large intestine Diverticulitis bleeding: with bleeding Diverticulitis complication: without perforation or abscess Qualified Code(s): K57.33 - Diverticulitis of large intestine without perforation or abscess with bleeding (2) Rectal bleed Current Visit: Yes Status: Acute Assessment and plan: Likely due to complication of suspected diverticulitis. Monitor hemoglobin and hematocrit. Hemoglobin is relatively stable for now. If the patient has further bleeding, we will consult surgery for possible colonoscopy. (3) Tobacco abuse Current Visit: Yes Status: Chronic Assessment and plan: Counseled regarding cessation. Patient states that she is willing to quit and has been trying to do the same. (4) Hypertension Current Visit: Yes Status: Chronic Assessment and plan: Borderline low blood pressure. Monitor. Intravenous fluids. Qualifiers: Hypertension type: essential hypertension Qualified Code(s): I10 - Essential (primary) hypertension (5) Diabetes mellitus, type 2 Current Visit: Yes Status: Chronic Assessment and plan: Continue home medications. Sliding scale insulin. Hemoglobin A1c from October 2016 is 6.6. 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 No aggravating or relieving factors. Patient also reports noticing blood in her commode after she went there to urinate. She denies having a bowel movement at the time. She describes bright red blood with clots. She denies any blood in her urine. She denies any burning or pain during urination. She states that she is not sexually active. Her last period was about 2 weeks ago. She reports a headache. Denies any shortness of breath, cough or wheezing. Reports a dull chest pain in the middle of the chest. She reports smoking cigarettes but states that she is in the process of quitting. 10 systems have been reviewed and are negative except as mentioned in the history of present illness. Past medical, surgical, family and social history reviewed from history and physical document dated 01/06/2017 and no changes except as mentioned above. - Constitutional Vitals: Temp Pulse Resp BP Pulse Ox 97.4 F L 87 18 98/64 98 01/07/17 06:56 01/07/17 06:56 01/07/17 06:56 01/07/17 06:56 01/07/17 06:56 General appearance: Present: cooperative, mild distress, A&O X 3, morbidly obese Exam: Gen.: Lying in bed. Mild distress. Chest: Clear to auscultation bilaterally. No adventitious sounds present. CVS: First and second heart sounds present. No murmurs, rubs or gallops. Abdomen: Soft, tender to palpation in the left iliac fossa without rebound tenderness, guarding or rigidity; obese. Bowel sounds present. No hepatosplenomegaly. Skin: No decubitus ulcers appreciated. Psychiatric: Alert, awake and oriented to time, place and person. Lymphatic system: No lymphadenopathy appreciated HEALTH EDUCATION ASSISTANT: No focal neurological deficits present. Eyes: PERRLA, extra muscles intact ENT: Mallampati 4. No oropharyngeal erythema present. Internal Medicine: Result - Labs CBC & Chem 7: 01/07/17 03:15 01/07/17 03:15 Labs: Short CBC 01/07/17 Range/Units 03:15 WBC 5.9 (4.3-11.1) K/mcL Hgb 9.9 L (11.5-15.4) g/dL Hct 32.4 L (35.3-44.9) % Plt Count 361 (140-400) K/mcL Neutrophils # 2.9 (1.6-8.9) K/mcL BMP 01/07/17 03:15 Sodium 138 Potassium 3.6 Chloride 104 Carbon Dioxide 26 BUN 6 L Creatinine 0.86 Glucose 213 H Calcium 9.4 Cardiac Enzymes 01/06/17 01/07/17 Range/Units 21:40 03:15 Troponin I 0.00 0.01 (0-0.03) ng/mL - ABG Interpretation ABG results: PT/INR, D-dimer PT 11.7 Seconds (9.4-12.1) 01/06/17 15:12 - Impressions Impressions Chest CTA 01/06/17 18:35 IMPRESSION: No evidence of pulmonary embolism or acute pulmonary abnormality. D/ / Carlos Cunningham MD / Carlos Cunningham MD Interpreting Provider: Carlos Cunningham MD Abdomen CT 01/06/17 21:22 IMPRESSION: Normal examination of the abdomen. Imaging of the pelvis was neither requested nor performed. D/ / Fidel Oropeza MD / Fidel Oropeza MD Interpreting Provider: Fidel Oropeza MD - VTE Reasons for not Prescribing Prophylaxis: Medical contraindication Consult Discharge Plan - Plan Referrals: Dulce Bradford MD [Primary Care Provider] -
[2017-01-07] MEDS ORDERED: Aspirin 81 MG TAB.CHEW PO SCH (09:00)
[2017-01-07] MEDS: Ondansetron 4 MG/2 ML VIAL IVP PRN (10:04)
[2017-01-07] MEDS: 0.9 % Sodium Chloride 1,000 ML IVC SCH (10:04)
--- NOTE | 2017-01-07 11:18 | Cardiology Consult Note ---
Date of Encounter: 01/07/17 Time of Encounter: 10:30 Assessment and Plan (1) Anemia Current Visit: No Status: Chronic Per cardiology: -Hemoglobin 9.9 today, was 11.1 on admission. -Stool for OB positive. -Management per primary service. Qualifiers: Anemia type: unspecified type Qualified Code(s): D64.9 - Anemia, unspecified (2) Elevated troponin Current Visit: Yes Status: Acute Per cardiology: -Troponin 0.24, 0, and 0.01. -Atypical troponin elevation. -Troponins elevated in the setting of anemia. -Atypical chest pain. -ECG with no ischemic changes, unchanged from previous. -Denies current chest pain. -Echo 01/06/17 with LVEF 60-65%, indeterminate diastolic function, no significant valvular dysfunction, all [place] with normal motion. -Do not suspect NSTEMI, suspect demand ischemia related to anemia. No cardiac rehab consult warranted at this time. -Cardiology will sign off and will follow in outpatient setting. Follow up set. (3) Atypical chest pain Current Visit: Yes Status: Acute Per cardiology: -Atypical chest pain that occured at rest. -Patient described as "heartburn." -Denies excertional symptoms. -Will continue to monitor in outpatient setting. (4) CAD (coronary artery disease) Current Visit: No Status: Chronic Per cardiology: -[facility] 04/2016 with 20% stenosis mid circumflex, all other arteries angiographyically free of disease. -On asa, statin, and beta pete. -Asa currently being held due to bleeding. -Recommend re-starting asa when able from bleeding/anemia standpoint. Qualifiers: Coronary Disease-Associated Artery/Lesion type: [place] artery [place] vs. transplanted heart: [place] heart Associated angina: without angina Qualified Code(s): I25.10 - Atherosclerotic heart disease of [place] coronary artery without angina pectoris (5) Hypertension Current Visit: Yes Status: Chronic Per cardiology: -Known hypertension. -On beta pete. -Currently BPs 90-130s systolic. -Will continue to monitor in outpatient setting. Qualifiers: Hypertension type: essential hypertension Qualified Code(s): I10 - Essential (primary) hypertension (6) Hyperlipidemia Current Visit: Yes Status: Chronic Per cardiology: -[place] hyperlipidemia. -On statin. -Will continue to monitor in outpatient setting. Qualifiers: Hyperlipidemia type: mixed hyperlipidemia Qualified Code(s): E78.2 - Mixed hyperlipidemia (7) Tobacco abuse Current Visit: Yes Status: Chronic Per cardiology: -KNown tobacco abuse. -I spent 3 minutes reviewing smoking cessation education with patient. -Will continue to monitor in outpatient setting, Discussion w patient/family: The assessment and plan as outlined above was discussed with the patient who expressed understanding and agreement. All questions were answered. Thank you for involving us in the care of your patient. Please call with any questions. Discussed and reviewed with . History of Present Illness Consult date: 01/06/17 Requesting physician: Ivory Aparicio Consult reason: chest pain Chief complaint: abdominal pain History of present illness: Ms. Cervantes is a 46 year old female with a relevant past medical history of depression, anxiety, hypertension, hyperlipidemia, and obesity. Patient presented to [facility] with complaints of abdominal pain and chest pain. Cardiology was consulted. Patient repots chest pain was mid-sternal and she described as "heartburn." Patient states pain occured at rest. Patient denies aggervating or alleviating factors. Patient denies current chest pain. Patient somewhat lethargic during assessment and kept falling asleep during assessment. Past Med Surg Social Fam HX - Past Medical History Attestation: Yes The following information was validated with the patient. Source: patient, old records reviewed Medical history: asthma, CHF, COPD, coronary artery disease, diabetes, GERD, hyperlipidemia, hypertension, pulmonary embolus Psychiatric history: depression - Past Surgical History Surgical History: orthopedic, other - Social History Smoking Status: Current every day smoker Packs per day: 6 cigs/day Smokeless Tobacco Status: No Alcohol use: none Drug use: none - Family History Mother Adopted: No Family Member Ethnicity: Non- Living Status: Still Living Hx Family Cardiac Disorders: Yes Hx Family Respiratory Disorders: No Hx Family Cancer: No Hx Family GI Disorders: No Hx Family Endocrine Disorder: Yes (diabetes) Hx Family Neuromuscular Disorders: No Hx Family Neurologic Disorders: No Hx Family HEENT Disorders: No Hx Family Autoimmune Disorders: Yes Father Adopted: No Family Member Ethnicity: Non- Living Status: Still Living Hx Family Cardiac Disorders: Yes (HTN) Hx Family Respiratory Disorders: No Hx Family Cancer: No Hx Family GI Disorders: No Hx Family Endocrine Disorder: Yes (DM) Hx Family Neuromuscular Disorders: Yes (ALZHEIMERS) Hx Family Neurologic Disorders: Yes (ALZHIEIMERS) Hx Family HEENT Disorders: No Hx Family Autoimmune Disorders: No Medications and Allergies Omeprazole [PriLOSEC] 40 mg PO DAILY 03/17/15 [History] Albuterol Sulfate [Proair Hfa] 2 puff IH Q4H PRN 03/16/16 [History] Ipratropium/Albuterol Neb [Duoneb] 3 ml IH Q6H PRN #100 inhsol 03/17/16 [Rx] Aspirin 81 mg PO DAILY #30 tab.chew 05/12/16 [Rx] Atorvastatin [Lipitor] 40 mg PO HS #30 tablet 05/12/16 [Rx] Metoprolol [Lopressor] 25 mg PO BID #60 tablet 05/12/16 [Rx] metFORMIN [Glucophage] 1,000 mg PO DAILY 08/29/16 [History] Gabapentin [Neurontin] 800 mg PO TID #90 capsule 08/31/16 [Rx] Buspirone HCl [Buspar] 10 mg PO TID 10/28/16 [History] Ondansetron ODT [Zofran ODT] 4 mg SL TID PRN 10/28/16 [History] Venlafaxine XR (24 HR) [Effexor Xr] 300 mg PO DAILY 10/28/16 [History] Triamcinolone Acet 0.1% CRM [Kenalog] 1 appl TP BID #2 tube 10/30/16 [Rx] ALPRAZolam [Xanax 1 MG Tablet] 1 mg PO TID PRN 01/06/17 [History] Dicyclomine [Bentyl] 10 mg PO QID PRN #20 capsule 01/06/17 [Rx] Ranitidine HCl [Zantac] 300 mg PO DAILY 01/06/17 [History] Tiotropium Br/Olodaterol HCl [Stiolto Respimat Inhal [place]] 2 puff IH DAILY 05/15 [History] Allergies clindamycin Allergy (Verified 01/06/17 14:39) Hives ketorolac [From Toradol] Adverse Reaction (Verified 01/06/17 14:39) Migraine tramadol Adverse Reaction (Verified 01/06/17 14:39) Vomiting codeine Allergy (Unknown, Uncoded 01/06/17 14:39) Difficulty Breathing nsaids Allergy (Unknown, Uncoded 01/06/17 14:39) Difficulty Breathing All Systems Review: A 10-system review of systems was performed and is negative for pertinent findings except as documented above in the HPI. - Cardiovascular Cardiovascular: as per HPI, chest pain at rest - Gastrointestinal Gastrointestinal: abdominal pain Physical Examination Vital Signs Temperature 98.4 F 01/06/17 14:39 Pulse Rate 104 01/06/17 14:39 Respiratory Rate 20 01/06/17 14:39 Blood Pressure 113/86 01/06/17 14:39 O2 Sat by Pulse Oximetry 96 01/06/17 14:39 Temperature 97.4 F L 01/07/17 06:56 Pulse Rate 87 01/07/17 06:56 Respiratory Rate 18 01/07/17 06:56 Blood Pressure 98/64 01/07/17 06:56 O2 Sat by Pulse Oximetry 98 01/07/17 06:56 Oxygen Delivery Oxygen Delivery Nasal Cannula General: Conversant, No Apparent Distress HEENT: Atraumatic, Normocephaly, Mucus Membranes Moist Neck: No JVD, Normal carotid pulses Cardiac: Reg Rate and Rhythm, Normal S1 and S2, No Murmur Lungs: Normal Breath Sounds, No Wheeze, Rales, Rhonchi Neuro: Alert and responsive, No focal deficits noted Abdomen: Soft, Other (Tender to palpitation) Skin: No rashes noted on visualized skin Musculoskeletal: No Chest Wall Tenderness Extremities: No Clubbing, No Cyanosis, No Edema, Normal Pulses Results 01/07/17 03:15 01/07/17 03:15 Impressions Chest X-Ray 01/06/17 14:42 IMPRESSION: No acute abnormality. D/ / Jaerd Manrique MD / Jared Manrique MD Interpreting Provider: Jared Manrique MD Chest CTA 01/06/17 18:35 IMPRESSION: No evidence of pulmonary embolism or acute pulmonary abnormality. D/ / Carlos Cunningham MD / Carlos Cunningham MD Interpreting Provider: Carlos Cunningham MD Abdomen CT 01/06/17 21:22 IMPRESSION: Normal examination of the abdomen. Imaging of the pelvis was neither requested nor performed. D/ / Fidel Oropeza MD / Fidel Oropeza MD Interpreting Provider: Fidel Oropeza MD Pelvis CT 01/07/17 09:30 IMPRESSION: No acute abnormality. D/ / 01/07/2017 10:36:17 Anthony Goodwin MD / Kayley Veras Interpreting Provider: Anthony Goodwin MD Active Medications Acetaminophen (Tylenol) 650 mg PO Q6HR PRN PRN Reason: Mild Pain (1-3) Stop: 07/08/17 21:19 Last Admin: 01/07/17 10:05 Dose: 650 mg Albuterol Sulfate (Proventil Neb) 2.5 mg IH Q2H PRN PRN Reason: Shortness Of Breath/Wheezing Stop: 07/08/17 21:22 Albuterol/Ipratropium (Duoneb) 3 ml IH QIDR PRN PRN Reason: Shortness Of Breath/Wheezing Stop: 07/08/17 23:01 Alprazolam (Xanax) 1 mg PO TID PRN; Protocol PRN Reason: Anxiety Stop: 07/08/17 21:52 Last Admin: 01/07/17 08:56 Dose: 1 mg Atorvastatin Calcium (Lipitor) 40 mg PO HS MILADY Stop: 07/09/17 21:01 Buspirone HCl (Buspar) 10 mg PO TID MILADY Stop: 07/09/17 09:01 Last Admin: 01/07/17 08:56 Dose: 10 mg Dextrose/Water (Dextrose 50% (Syg)) 25 ml IVP AD PRN PRN Reason: Hypoglycemia Stop: 07/08/17 21:21 Famotidine (Pepcid) 40 mg PO DAILY MILADY Stop: 07/09/17 09:01 Last Admin: 01/07/17 08:56 Dose: 40 mg Gabapentin (Neurontin) 800 mg PO TID [facility] Stop: 07/09/17 09:01 Last Admin: 01/07/17 08:56 Dose: 800 mg Glucagon (Glucagen) 1 mg IM ONCE PRN PRN Reason: Hypoglycemia Stop: 07/08/17 21:21 Glucose (Gluctose) 15 gm PO ONCE PRN PRN Reason: Hypoglycemia Stop: 07/08/17 21:21 Glucose (Gluctose) 30 gm PO ONCE PRN PRN Reason: Hypoglycemia Stop: 07/08/17 21:21 Dextrose (Dextrose 5%) 1,000 mls @ 100 mls/hr IVC .Q10H PRN PRN Reason: HYPOGLYCEMIA Stop: 07/08/17 21:21 Sodium Chloride (0.9 % Sodium Chloride) 1,000 mls @ 75 mls/hr IVC .[id number] [facility] Stop: 07/09/17 09:31 Last Admin: 01/07/17 10:04 Dose: 75 mls/hr Insulin Human Lispro (Humalog) 0 units SQ TIDAC [facility] PRN Reason: Protocol Stop: 07/09/17 11:31 Metoprolol Tartrate (Lopressor) 25 mg PO BID [facility] Stop: 07/09/17 09:01 Last Admin: 01/07/17 08:55 Dose: 25 mg Metronidazole (Flagyl) 500 mg PO TID [facility] PRN Reason: Protocol Stop: 07/09/17 15:01 Morphine Sulfate (Morphine Sulfate) 2 mg IVP Q4HR PRN PRN Reason: Severe Pain Stop: 07/08/17 21:26 Last Admin: 01/07/17 08:56 Dose: 2 mg Naloxone HCl (Narcan) 0.4 mg IVP Q2MIN PRN PRN Reason: Opioid Reversal Stop: 07/08/17 21:19 Nicotine (Nicoderm) 14 mg TD DAILY [facility] PRN Reason: Protocol Stop: 07/08/17 21:01 Last Admin: 01/07/17 01:17 Dose: Not Given Nitroglycerin (Nitroglycerin) 0.4 mg SL Q5MIN PRN PRN Reason: Chest Pain Stop: 07/08/17 21:30 Omeprazole (Prilosec) 20 mg PO DAILY [facility] Stop: 07/09/17 09:01 Last Admin: 01/07/17 08:57 Dose: 20 mg Ondansetron HCl (Zofran) 4 mg IVP Q8HR PRN PRN Reason: Nausea And Vomiting Stop: 07/08/17 21:19 Last Admin: 01/07/17 10:04 Dose: 4 mg Pharmacy Profile Note (Patient Taking Own Medication) 2 each IH DAILY [facility]ADY Stop: 07/09/17 09:01 Last Admin: 01/07/17 08:57 Dose: Not Given Senna/Docusate Sodium (Senna Plus) 2 each PO BID MILADY PRN Reason: Protocol Stop: 07/09/17 09:01 Last Admin: 01/07/17 08:56 Dose: 2 each Laboratory Tests 01/06/17 01/06/17 01/06/17 15:12 15:12 15:12 Hgb 11.1 L Creatinine AST 19 ALT 26 Troponin I 0.24 H* Triglycerides Cholesterol LDL Cholesterol, Calc HDL Cholesterol 01/06/17 01/07/17 01/07/17 21:40 03:15 03:15 Hgb 9.9 L Creatinine 0.86 AST ALT Troponin I 0.00 Triglycerides 201 H Cholesterol 169 LDL Cholesterol, Calc 84 HDL Cholesterol 45 01/07/17 03:15 Hgb Creatinine AST ALT Troponin I 0.01 Triglycerides Cholesterol LDL Cholesterol, Calc HDL Cholesterol - Imaging and Cardiology Chest Xray: report reviewed Echo: report reviewed Cardiac cath: report reviewed - EKG Interpretation EKG results cardiology: personally reviewed (ECG with sinus tachycardia, HR 101 with T wave inversions in leads I and II, uncahnged from previous.), other ( Telemetry reviewed with average HR 88, sinus rhythm. PACs noted.) Consult Discharge Plan - Plan Referrals: Dulce Bradford MD [Primary Care Provider] -
--- NOTE | 2017-01-07 11:36 | Electrocardiograph Report ---
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
[2017-01-07] MEDS: *HR* HYDROcodone/Acet 7.5/325 mg TABLET PO PRN (13:52)
[2017-01-07] MEDS: metroNIDAZOLE 500 MG TABLET PO SCH ×2 (13:53→21:52)
[2017-01-07 19:11] LABS: Hematocrit 34.2 % (35.3-44.9); Hemoglobin 10.6 g/dL (11.5-15.4)
[2017-01-08] MEDS: *HR* HYDROcodone/Acet 7.5/325 mg TABLET PO PRN ×3 (00:22→21:19)
[2017-01-08] MEDS: 0.9 % Sodium Chloride 1,000 ML IVC SCH (00:28)
[2017-01-08 06:30] LABS: Basophils % 0.3 %; Eosinophils # 0.1 K/mcL (0.0-0.6); Eosinophils % 1.8 %; Hematocrit 32.4 % (35.3-44.9); Hemoglobin 9.8 g/dL (11.5-15.4); Immature Granulocytes % 0.3 % (0-4); Lymphocytes # 1.9 K/mcL (0.6-4.6); Lymphocytes % 32.1 %; Mean Corpuscular HGB Conc 30.2 g/dL (31.6-35.5); Mean Corpuscular Volume 89.3 fL (83.0-100.0); Mean Platelet Volume 10.1 fL (9.4-12.4); Monocytes # 0.6 K/mcL (0.0-1.3); Monocytes % 9.2 %; Neutrophils # 3.4 K/mcL (1.6-8.9); Platelet Count 323 K/mcL (140-400); Red Blood Count 3.63 M/mcL (3.82-4.97); Red Cell Distribution Width 18.1 % (11.5-14.5); Segmented Neutrophils % 56.3 %
[2017-01-08] MEDS: Sennosides/Docusate Sodium TABLET PO SCH ×2 (08:42→21:02)
[2017-01-08] MEDS: Nicotine 14 MG PATCH.TD24 TD SCH (08:42)
[2017-01-08] MEDS: Famotidine 20 MG TABLET PO SCH (08:43)
[2017-01-08] MEDS: Gabapentin 400 MG CAPSULE PO SCH ×3 (08:43→21:02)
[2017-01-08] MEDS: metroNIDAZOLE 500 MG TABLET PO SCH ×3 (08:43→21:01)
[2017-01-08] MEDS: Insulin LISPRO 300 UNITS/3 ML VIAL SQ SCH ×3 (08:51→19:02)
[2017-01-08] MEDS: *HR* Morphine 2 MG/ML SYRINGE IVP PRN ×2 (09:49→14:29)
[2017-01-08] MEDS: (Tiotropium Br/Olodaterol Hcl [Stiolto Respimat Inhal) IH SCH (14:34)
[2017-01-08] MEDS ORDERED: MOM Conc 10 ML UD.LIQ PO PRN (14:55)
--- NOTE | 2017-01-08 15:00 | Internal Med Progress Note ---
Date of Encounter: 01/08/17 Time of Encounter: 14:30 - Assessment and plan (1) Colitis Current Visit: Yes Status: Acute Assessment and plan: Patient's colonoscopy reports from 2 years ago reviewed. Patient had similar complaints of bleeding and left lower quadrant pain and was found to have colitis. Her CT scan of the abdomen/pelvis does not reveal any acute abnormality that corresponds to her pain. Patient will be treated as if she is colitis with ciprofloxacin and metronidazole by mouth. Morphine be discontinued. Continue Lortab for pain control. Stool softeners. Patient is moderate risk due to unresolved colitis and risk of sepsis. Discontinue intravenous fluids (2) Diverticulitis Current Visit: Yes Status: Ruled-out Qualifiers: Diverticulitis site: large intestine Diverticulitis bleeding: with bleeding Diverticulitis complication: without perforation or abscess Qualified Code(s): K57.33 - Diverticulitis of large intestine without perforation or abscess with bleeding (3) Rectal bleed Current Visit: Yes Status: Resolved Assessment and plan: Patient has not had a bowel movement since presentation to the hospital. No further rectal bleeding noted. (4) Tobacco abuse Current Visit: Yes Status: Chronic (5) Hypertension Current Visit: Yes Status: Chronic Assessment and plan: Discontinue intravenous fluids. Monitor Blood pressure and resume medications accordingly. Qualifiers: Hypertension type: essential hypertension Qualified Code(s): I10 - Essential (primary) hypertension (6) Diabetes mellitus, type 2 Current Visit: Yes Status: Chronic Assessment and plan: Continue home medications. Sliding scale insulin. Hemoglobin A1c from October 2016 is 6.6. 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 She states that she is able to tolerate a full liquid diet and is requesting solid food. She states that she has not had a bowel movement since presenting to the hospital. She denies any further bleeding from her rectum. She is complaining of some itching in her private parts. She denies being sexually active. She denies any burning or pain during urination. She reports psoriasis over both her elbows. - Constitutional Vitals: Temp Pulse Resp BP Pulse Ox 97.6 F 71 18 115/83 94 01/08/17 12:18 01/08/17 12:18 01/08/17 12:18 01/08/17 12:18 01/08/17 12:18 General appearance: Present: cooperative, mild distress, A&O X 3, morbidly obese Exam: Gen.: Lying in bed. Mild distress. Chest: Clear to auscultation bilaterally. No adventitious sounds present. CVS: First and second heart sounds present. No murmurs, rubs or gallops. Abdomen: Soft, minimally tender to palpation in the left lower quadrant, obese. Bowel sounds present. No hepatosplenomegaly. Skin: No decubitus ulcers appreciated. Internal Medicine: Result - Labs CBC & Chem 7: 01/08/17 05:47 01/07/17 03:15 Labs: Short CBC 01/07/17 01/08/17 Range/Units 18:53 05:47 WBC 6.0 (4.3-11.1) K/mcL Hgb 10.6 L 9.8 L (11.5-15.4) g/dL Hct 34.2 L 32.4 L (35.3-44.9) % Plt Count 323 (140-400) K/mcL Neutrophils # 3.4 (1.6-8.9) K/mcL Cardiac Enzymes 01/07/17 Range/Units 20:21 Troponin I 0.00 (0-0.03) ng/mL - ABG Interpretation ABG results: PT/INR, D-dimer PT 11.7 Seconds (9.4-12.1) 01/06/17 15:12 - Impressions Impressions Pelvis CT 01/07/17 09:30 IMPRESSION: No acute abnormality. D/ / 01/07/2017 10:36:17 Anthony Goodwin MD / Kayley Veras Interpreting Provider: Anthony Goodwin MD - VTE Reasons for not Prescribing Prophylaxis: Medical contraindication Consult Discharge Plan - Plan Referrals: Dulce Bradford MD [Primary Care Provider] -
[2017-01-08] MEDS: CLOBETASOL PROPIONATE 15 GM TUBE TP SCH ×2 (15:40→21:02)
[2017-01-08] MEDS ORDERED: Clotrimazole Vag CRM 45 GM TUBE VG SCH (21:00)
[2017-01-08] MEDS: ALPRAZolam 1 MG TABLET PO PRN (21:14)
[2017-01-09] MEDS: *HR* HYDROcodone/Acet 7.5/325 mg TABLET PO PRN ×3 (04:11→16:17)
[2017-01-09] MEDS ORDERED: *HR* Morphine 2 MG/ML SYRINGE IVP ONE (05:09)
[2017-01-09] MEDS: (Tiotropium Br/Olodaterol Hcl [Stiolto Respimat Inhal) IH SCH (09:08)
[2017-01-09] MEDS: Gabapentin 400 MG CAPSULE PO SCH ×2 (09:18→14:51)
[2017-01-09] MEDS: metroNIDAZOLE 500 MG TABLET PO SCH ×2 (09:19→14:51)
[2017-01-09] MEDS: Sennosides/Docusate Sodium TABLET PO SCH (09:19)
[2017-01-09] MEDS: Insulin LISPRO 300 UNITS/3 ML VIAL SQ SCH ×3 (09:19→16:43)
[2017-01-09] MEDS: Famotidine 20 MG TABLET PO SCH (09:19)
[2017-01-09] MEDS: Nicotine 14 MG PATCH.TD24 TD SCH (09:19)
[2017-01-09] MEDS: CLOBETASOL PROPIONATE 15 GM TUBE TP SCH (09:20)
[2017-01-09] MEDS ORDERED: Acetaminophen/Butalbital/CaffeineTABLET PO PRN (11:53)
[2017-01-09] MEDS: ALPRAZolam 1 MG TABLET PO PRN ×2 (12:42→15:01)
[2017-01-09] MEDS: Ondansetron 4 MG/2 ML VIAL IVP PRN (12:42)
[2017-01-09 15:51] VITALS: BP 116/74
--- NOTE | 2017-01-09 16:16 | Discharge Summary ---
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 mellitus poundmaster insulin use: without poundmaster use Qualified Code(s): E11.9 - Type 2 diabetes mellitus without complications (6) Morbid obesity with BMI of 50.0-59.9, adult Priority: Secondary Status: Chronic - Discharge Medications Prescriptions: HYDROcodone/Acet 7.5/325 mg [Indian 7.5-325 mg] 1 tab PO Q6HR PRN #12 tab PRN Reason: Severe Pain Ciprofloxacin [Cipro] 500 mg PO BID #6 tab Clobetasol Propionate [Temovate 0.05%] 1 appl TP BID #15 g Clotrimazole Vag CRM [Gyne-Lotrimin Vag CRM] 1 appl VG HS #45 g metroNIDAZOLE [Flagyl] 500 mg PO TID #6 tab Nicotine Patch [Nicoderm] 14 mg TD DAILY #14 Sennosides/Docusate Sodium [Senna Plus] 2 each PO BID #40 tab Home Medications: Omeprazole [PriLOSEC] 40 mg PO DAILY 03/17/15 [History] Albuterol Sulfate [Proair Hfa] 2 puff IH Q4H PRN 03/16/16 [History] Ipratropium/Albuterol Neb [Duoneb] 3 ml IH Q6H PRN #100 inhsol 03/17/16 [Rx] Aspirin 81 mg PO DAILY #30 tab.chew 05/12/16 [Rx] Atorvastatin [Lipitor] 40 mg PO HS #30 tablet 05/12/16 [Rx] Metoprolol [Lopressor] 25 mg PO BID #60 tablet 05/12/16 [Rx] Gabapentin [Neurontin] 800 mg PO TID #90 capsule 08/31/16 [Rx] Buspirone HCl [Buspar] 10 mg PO TID 10/28/16 [History] Ondansetron ODT [Zofran ODT] 4 mg SL TID PRN 10/28/16 [History] Venlafaxine XR (24 HR) [Effexor Xr] 300 mg PO DAILY 10/28/16 [History] Triamcinolone Acet 0.1% CRM [Kenalog] 1 appl TP BID #2 tube 10/30/16 [Rx] ALPRAZolam [Xanax 1 MG Tablet] 1 mg PO TID PRN 01/06/17 [History] Dicyclomine [Bentyl] 10 mg PO QID PRN #20 capsule 01/06/17 [Rx] Ranitidine HCl [Zantac] 300 mg PO DAILY 01/06/17 [History] Tiotropium Br/Olodaterol HCl [Stiolto Respimat Inhal [place]] 2 puff IH DAILY 05/15 [History] Ciprofloxacin [Cipro] 500 mg PO BID #6 tab 01/09/17 [Rx] Clobetasol Propionate [Temovate 0.05%] 1 appl TP BID #15 g 01/09/17 [Rx] Clotrimazole Vag CRM [Gyne-Lotrimin Vag CRM] 1 appl VG HS #45 g 01/09/17 [Rx] HYDROcodone/Acet 7.5/325 mg [Indian 7.5-325 mg] 1 tab PO Q6HR PRN #12 tab [Rx] Nicotine Patch [Nicoderm] 14 mg TD DAILY #14 01/09/17 [Rx] Sennosides/Docusate Sodium [Senna Plus] 2 each PO BID #40 tab 01/09/17 [Rx] metFORMIN [Glucophage] 1,000 mg PO BIDWM #0 01/09/17 [Rx] metroNIDAZOLE [Flagyl] 500 mg PO TID #6 tab 01/09/17 [Rx] Allergies/Adverse Reactions: Allergies clindamycin Allergy (Verified 01/06/17 14:39) Hives ketorolac [From Toradol] Adverse Reaction (Verified 01/06/17 14:39) Migraine tramadol Adverse Reaction (Verified 01/06/17 14:39) Vomiting codeine Allergy (Unknown, Uncoded 01/06/17 14:39) Difficulty Breathing nsaids Allergy (Unknown, Uncoded 01/06/17 14:39) Difficulty Breathing - Notes to Outpatient Provider 1. Consider GI referral as out patient for further work up for her abdominal pain. Negative CT abdomen and pelvis in the hospital. Being treated as colitis ( which was found on her prior colonoscopy). 2. Consider out patient PT for her chronic low back pain. 3. Consider dermatology consult for her psoriasis Date of admission: 01/07/17 09:21 Primary care physician: Dulce Bradford MD Discharging clinician: Kenneth Cope Anticipated date of discharge: 01/09/17 - Patient Status Disposition: Home, Self-Care Condition: Good Functional capacity at discharge: independent ambulation Overall status at discharge: patient is progressing back to baseline - Discharge Instructions Follow Up With: Dulce Bradford MD [Primary Care Provider] - - Diet and Activity Activity: increase activity as tolerated Diet: diabetic diet Hospital course: Ms. Cervantes is a 46 year old female with a history of COPD, tobacco abuse, diabetes who presented to the emergency room after she noticed blood after wiping her bottom after she urinated. When she got up, she noticed blood clots in the bowel and P and hence, she presented to the emergency room. She was also complaint of left lower quadrant pain. CT scan of the abdomen/pelvis did not reveal any abnormality is. The patient had similar symptoms about 2 years ago when a colonoscopy was performed and revealed colitis. The patient was admitted to the hospital and placed on a clear liquid diet. She was given metronidazole and ciprofloxacin. Her symptoms improved throughout the course of hospital stay. Her diet was advanced to full liquid diet and eventually regular solid diet. The patient has not had any further bowel movements while being in the hospital. Her hemoglobin remained stable and she had no further bleeding episodes. She did not have any nausea, vomiting, fever or chills. As her symptoms had resolved and her hemoglobin was stable and she had no further bleeding, she was felt stable to be discharged home after she was consuming solid food. The patient was noticed to have psoriatic plaques on her body. When inquired about it,she stated that she was not using any medications for the same. Hence , she was placed on clobetasol propionate cream to be applied twice daily. She was also complaint of some vaginal itching and she was hence placed on a fungal cream vaginally. As the patient did not have any active bleeds during the hospital stay, the on- call colonoscopy physician was not consulted for assessment. The patient has been instructed to discuss with her primary care physician regarding possible GI referral to evaluate the cause of her chronic left lower quadrant pain and recurrent GI bleeds. She understands the same. - Time Spent with Patient Total time spent providing and/or coordinating discharge services: Greater than 30 minutes (40) - Constitutional Vitals: Temp Pulse Resp BP Pulse Ox 97.8 F 74 15 116/74 95 01/09/17 15:50 01/09/17 15:50 01/09/17 15:50 01/09/17 15:50 01/09/17 15:50 General appearance: Present: cooperative, mild distress, A&O X 3, morbidly obese Exam: Gen.: Lying in bed. No acute distress. Chest: Clear to auscultation bilaterally. No adventitious sounds present. CVS: First and second heart sounds present. No murmurs, rubs or gallops. Abdomen: Soft, nontender, obese. Bowel sounds present. - VTE Reasons for not Prescribing Prophylaxis: Medical contraindication
--- NOTE | 2017-01-12 06:39 | Electrocardiograph Report ---
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
== END 2017-01-09 17:19 | disposition home or self-care (01) | DRG 249 ==
LOC: EMEROO 14:09 → 2NENU 14:09
PROVIDERS: ADMIT Internal Medicine Sleep Medicine; ATTEND Internal Medicine Sleep Medicine

== ENCOUNTER 2017-02-09 16:33 | Observation (INO) ==
[2017-02-09] MEDS ORDERED: 0.9 % Sodium Chloride 500 ML IVC ONE (16:43)
[2017-02-09] MEDS ORDERED: Ondansetron 4 MG/2 ML VIAL IVP ONE (16:43)
--- NOTE | 2017-02-09 16:57 | Emergency Department Note ---
Disposition Clinical Impression: Chest pain Qualifiers: Chest pain type: unspecified Qualified Code(s): R07.9 - Chest pain, unspecified Disposition: Admitted As Inpatient Condition: Fair Referrals: NONE,PCP [Non-Partnered Physician] - Forms: ED Satisfaction Letter Time of Disposition: 19:26 General Adult HPI - General Chief complaint: ED Chest Pain Stated complaint: CP/HTN Time Seen by Provider: 02/09/17 16:38 Source: patient, EMS Mode of arrival: EMS Limitations: no limitations Nursing Notes Reviewed: Yes Vital Signs Reviewed: Yes - History of Present Illness HPI Narrative: Patient is a 46-year-old female with a past medical history of hypertension, pulmonary embolism and severe COPD presents with chest pain that started 1 hour prior to arrival. She describes the chest pain as left-sided and "gripping" with radiation into the left arm and the back. She describes the pain as constant she does not notice anything that makes the pain better or worse. She has associated nausea, no emesis, no shortness of breath outside her typical shortness of breath, and nonexertional. She does not recall her last stress test however she does recall a coronary artery blockage that did not need intervention at the time. Patient also states that she has a history of PE, therefore she is PERC positive. Pain Scale: 6 - Related Data Home Medications Medication Instructions Recorded Confirmed Omeprazole [PriLOSEC] 40 mg PO DAILY 03/17/15 02/09/17 Albuterol Sulfate [Proair Hfa] 2 puff IH Q4H PRN 03/16/16 02/09/17 Buspirone HCl [Buspar] 10 mg PO TID 10/28/16 02/09/17 Venlafaxine XR (24 HR) [Effexor Xr] 300 mg PO DAILY 10/28/16 02/09/17 ALPRAZolam [Xanax 1 MG Tablet] 1 mg PO QAM AND QHS 01/06/17 02/09/17 Tiotropium Br/Olodaterol HCl 2 puff IH DAILY 01/06/17 02/09/17 [Stiolto Respimat Inhal [place]] Lidocaine [Lidocaine] 1 patch TD DAILY 02/09/17 02/09/17 Trazodone HCl 200 mg PO HS 02/09/17 02/09/17 metFORMIN [Glucophage] 1,000 mg PO DAILY 02/09/17 02/09/17 Previous Rx's Medication Instructions Recorded Ipratropium/Albuterol Neb [Duoneb] 3 ml IH Q6H PRN #100 inhsol 03/17/16 Aspirin 81 mg PO DAILY #30 tab.chew 05/12/16 Atorvastatin [Lipitor] 40 mg PO HS #30 tablet 05/12/16 Metoprolol [Lopressor] 25 mg PO BID #60 tablet 05/12/16 Gabapentin [Neurontin] 800 mg PO TID #90 capsule 08/31/16 Triamcinolone Acet 0.1% CRM 1 appl TP BID #2 tube 10/30/16 [Kenalog] Nicotine Patch [Nicoderm] 14 mg TD DAILY #14 01/09/17 Allergies Allergy/AdvReac Type Severity Reaction Status Date / Time clindamycin Allergy Hives Verified 01/06/17 14:39 ketorolac [From Toradol] AdvReac Migraine Verified 01/06/17 14:39 tramadol AdvReac Vomiting Verified 01/06/17 14:39 codeine Allergy Unknown Difficulty Uncoded 01/06/17 14:39 Breathing nsaids Allergy Unknown Difficulty Uncoded 01/06/17 14:39 Breathing All systems ED: reviewed and negative except as stated. Constitutional: Denies: fever, chills Cardiovascular: Reports: chest pain. Denies: palpitations, dyspnea on exertion , orthopnea, syncope Respiratory: Denies: cough, dyspnea, wheezes, hemoptysis Gastrointestinal: Reports: nausea. Denies: abdominal pain, vomiting Musculoskeletal: Reports: back pain. 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 She appears to be in mild distress. She is on 2 L of oxygen however I took her off oxygen and she was still satting at 99%. She speaks in full sentences. - General Limitations: no limitations General appearance: alert, in no apparent distress - Head Head exam: atraumatic, normocephalic, normal inspection - Eye Eye exam: Present: normal appearance, PERRL, EOMI - ENT ENT exam: normal exam, normal oropharynx, mucous membranes moist - Neck Neck exam: Present: normal inspection, full ROM, trachea midline. Absent: tenderness - Chest Chest inspection: Present: normal inspection, symmetric chest wall rise. Absent : tenderness - Respiratory Respiratory exam: Present: normal lung sounds bilaterally, other. Absent: respiratory distress, wheezes - Expanded Respiratory Exam Location: decreased breath sounds: Left, Upper, Lower, Right - Cardiovascular Cardiovascular exam: Present: regular rate, normal rhythm, normal heart sounds - Abdominal Exam Abdominal exam: Present: soft, Non-Tender, normal bowel sounds - Extremities Exam Extremities exam: Present: normal inspection, full ROM. Absent: tenderness - Expanded Lower Extremity Exam Neurovascular/Tendon exam: Present: normal capillary refill. Absent: pulse deficit - Back Exam Back exam: Present: normal inspection, full ROM. Absent: tenderness - Neurological Exam Neurological exam: Present: alert, oriented X3 - Psychiatric Psychiatric exam: Present: normal affect, normal mood - Skin Skin exam: Present: warm, dry, intact, normal color. Absent: cyanosis, diaphoresis, pallor Course Course Narrative: Patient is a 46-year-old female with a plain chest pain that started 1 hour prior to arrival with radiation into her left arm. My plan is to perform a cardiac workup on the patient including troponin, EKG and a chest x-ray. Also treat her for her nausea and give her half liter of fluids. The patient does meet PERC negative criteria therefore we will order a d-dimer. - Reevaluation(s) Reevaluation #1: I discussed the patient's lab results and imaging results. She states her nausea has improved however she still having some left-sided chest pain. I will prescribe her something for her pain. I discussed the plan to admit the patient for further workup and evaluation of her symptoms and the patient agrees. Time: 18:07 Reevaluation #2: I discussed the patient case with Joan Hawkista hospitalist on-call and she agrees to admit. Time: 19:27 Vital Signs Temperature 98.1 F 02/09/17 16:35 Pulse Rate 84 02/09/17 16:35 Respiratory Rate 20 02/09/17 16:35 Blood Pressure 138/81 02/09/17 16:35 O2 Sat by Pulse Oximetry 100 02/09/17 16:35 Temperature 98.1 F 02/09/17 16:35 Pulse Rate 73 02/09/17 18:35 Respiratory Rate 16 02/09/17 18:35 Blood Pressure 127/59 02/09/17 18:35 O2 Sat by Pulse Oximetry 98 02/09/17 18:35 Oxygen Delivery Oxygen Delivery Room Air Medical Decision Making - Medical Records Medical records reviewed: Yes I reviewed the patient's medical records. - Lab Data Lab results reviewed: Yes I reviewed the patient's lab results. Result diagrams: 02/09/17 17:06 02/09/17 17:06 Lab Results 02/09/17 02/09/17 02/09/17 Range/Units 17:06 17:06 17:06 WBC 8.7 (4.3-11.1) K/mcL RBC 3.91 (3.82-4.97) M/mcL Hgb 10.6 L (11.5-15.4) g/dL Hct 34.0 L (35.3-44.9) % MCV 87.0 (83.0-100.0) fL MCH 27.1 L (28.0-33.3) pg MCHC 31.2 L (31.6-35.5) g/dL RDW 15.9 H (11.5-14.5) % Plt Count 345 (140-400) K/mcL MPV 9.8 (9.4-12.4) fL Immature Gran % 0.1 (0-4) % Seg Neutrophils % 59.1 % Lymphocytes % 32.7 % Monocytes % 6.5 % Eosinophils % 1.4 % Basophils % 0.2 % Neutrophils # 5.2 (1.6-8.9) K/mcL Lymphocytes # 2.9 (0.6-4.6) K/mcL Monocytes # 0.6 (0.0-1.3) K/mcL Eosinophils # 0.1 (0.0-0.6) K/mcL Basophils # 0.0 (0.0-0.2) K/mcL D-Dimer (0-500) ng/mLFEU Sodium 137 (136-145) mEq/L Potassium 3.8 (3.5-4.5) mEq/L Chloride 103 (98-109) mEq/L Carbon Dioxide 27 (19-29) mEq/L BUN 7 (7-20) mg/dL Creatinine 0.81 (0.57-1.11) mg/dL Est GFR ( Amer) > 60 (> 60) Est GFR (Non-Af Amer) > 60 (> 60) BUN/Creatinine Ratio 9 (6-26) Glucose 122 H (70-99) mg/dL Calculated Osmolality 283 (280-300) Calcium 9.4 (8.6-10.8) mg/dL Troponin I 0.00 (0-0.03) ng/mL 02/09/17 Range/Units 17:06 WBC (4.3-11.1) K/mcL RBC (3.82-4.97) M/mcL Hgb (11.5-15.4) g/dL Hct (35.3-44.9) % MCV (83.0-100.0) fL MCH (28.0-33.3) pg MCHC (31.6-35.5) g/dL RDW (11.5-14.5) % Plt Count (140-400) K/mcL MPV (9.4-12.4) fL Immature Gran % (0-4) % Seg Neutrophils % % Lymphocytes % % Monocytes % % Eosinophils % % Basophils % % Neutrophils # (1.6-8.9) K/mcL Lymphocytes # (0.6-4.6) K/mcL Monocytes # (0.0-1.3) K/mcL Eosinophils # (0.0-0.6) K/mcL Basophils # (0.0-0.2) K/mcL D-Dimer 493 (0-500) ng/mLFEU Sodium (136-145) mEq/L Potassium (3.5-4.5) mEq/L Chloride (98-109) mEq/L Carbon Dioxide (19-29) mEq/L BUN (7-20) mg/dL Creatinine (0.57-1.11) mg/dL Est GFR ( Amer) (> 60) Est GFR (Non-Af Amer) (> 60) BUN/Creatinine Ratio (6-26) Glucose (70-99) mg/dL Calculated Osmolality (280-300) Calcium (8.6-10.8) mg/dL Troponin I (0-0.03) ng/mL - Radiology Data Radiology results reviewed: Yes I reviewed the patient's radiology results. Chest X-Ray 02/09/17 16:43 IMPRESSION: No acute cardiopulmonary disease. D/ / Anthony Haines MD / Anthony Haines MD Interpreting Provider: Anthony Haines MD - EKG Data EKG #1 EKG attestation: Yes I reviewed and interpreted this EKG. EKG results narrative: I interpreted this EKG performed at 16:46. EKG is sinus rhythm at a rate of 85. Normal axis. OK interval is 192, QRS is 100, QT is 368, QTc is 410 his intervals are within normal limits. No ST segment elevations or depressions. No new Q waves. Nonspecific ST-T wave changes in lead aVL otherwise no changes when compared to EKG done on January 092016
--- NOTE | 2017-02-09 17:16 | Emergency Department Note ---
START Narrative - START START: I examined this patient and my medical decision-making was reviewed with the SENIOR SALES REPRESENTATIVE/PA/Advanced Practice Nurse/Resident Physician. I agree with the documented findings, disposition and treatment plan as described except to the extent set forth below. ED attending: Patient's emergency medicine resident Dr. RIVAS. Please see copy of this note for H&P evaluation and management and ED disposition. We both had independent [id number] time in contact with this patient. Briefly: A 46-year-old female presents via EMS for chest pain and hypertension. Patient's pain center which has gone to the left arm. History of obesity and psoriasis as well. Patient ending and ED workup including troponin and chest x-ray. Disposition pending.
[2017-02-09 17:29] LABS: Basophils % 0.2 %; Eosinophils # 0.1 K/mcL (0.0-0.6); Eosinophils % 1.4 %; Hemoglobin 10.6 g/dL (11.5-15.4); Immature Granulocytes % 0.1 % (0-4); Lymphocytes # 2.9 K/mcL (0.6-4.6); Lymphocytes % 32.7 %; Mean Corpuscular HGB Conc 31.2 g/dL (31.6-35.5); Mean Corpuscular Hemoglobin 27.1 pg (28.0-33.3); Mean Platelet Volume 9.8 fL (9.4-12.4); Monocytes # 0.6 K/mcL (0.0-1.3); Monocytes % 6.5 %; Neutrophils # 5.2 K/mcL (1.6-8.9); Platelet Count 345 K/mcL (140-400); Red Blood Count 3.91 M/mcL (3.82-4.97); Red Cell Distribution Width 15.9 % (11.5-14.5); Segmented Neutrophils % 59.1 %
[2017-02-09 17:31] LABS: BUN/Creatinine Ratio 9 (6-26); Blood Urea Nitrogen 7 mg/dL (7-20); Calcium 9.4 mg/dL (8.6-10.8); Carbon Dioxide 27 mEq/L (19-29); Chloride 103 mEq/L (98-109); Glucose 122 mg/dL (70-99); Osmolality,Calculated 283 (280-300); Potassium 3.8 mEq/L (3.5-4.5); Sodium 137 mEq/L (136-145); eGFR For African Americans > 60 (> 60); eGFR For Non-African Americans > 60 (> 60)
[2017-02-09] MEDS ORDERED: *HR* HYDROmorphone (PF) 1 MG/ML SYRINGE IVP ONE (17:53)
[2017-02-09] MEDS ORDERED: Ketorolac 15 MG/ML VIAL IVP PRN (20:03)
[2017-02-09] MEDS ORDERED: Naloxone 0.4 MG/ML INJ IVP PRN (20:03)
[2017-02-09] MEDS ORDERED: Ipratropium/Albuterol Neb 3 ML IH PRN (20:06)
[2017-02-09] MEDS ORDERED: Dextrose Gel 15 GM PO PRN ×2 (20:08)
[2017-02-09] MEDS ORDERED: *HR* Dextrose 50 % in Water (Syg) 50 ML SYRINGE IVP PRN (20:08)
[2017-02-09] MEDS ORDERED: D5% in Water 1,000 ML IVC PRN (20:08)
[2017-02-09] MEDS ORDERED: GI Cocktail 40 ML EACH PO ONE (20:10)
--- NOTE | 2017-02-09 20:15 | Internal Med History&Physical ---
<Lobo Aburto - Last Filed: 02/09/17 20:39> Date of Encounter: 02/09/17 Time of Encounter: 20:12 Assessment and Plan (1) Atypical chest pain Current visit: Yes Status: Acute 46 F hx of HTN, HLD, DM, GERD, current smoker presents with chest pain atypical chest pain Family hx: reports grandparents with CAD, denies CAD in immediate family Admitted last month for same presentation: Echo 12/2015: LVEF 60-65% with no valvular abnormality, no wall motion abnormality LHC 04/2016: 20% stenosis in circumflex artery troponin 0.00 EKG: NSR w/o ST elevations or depressions, patient has new T-wave inversions in leads I and AVL, CP not reproducible with palpation D-dimer WNL: wells score 1.5 fore previous hx of PE, low risk BP 125/70 CXR WNL On 2L O2 at home cor COPD and oxygenation >99% Etiology: Cardiac (female, hx of DM, family hx, multiple risk factors and new EKG changes ) GERD plan: cardiac tele Metoprolol, statin, aspirin test GI cocktail zofran for [place] cardiac diabetic diet. repeat EKG in morning cardiology consult (2) Morbid obesity with BMI of 40.0-44.9, adult Current visit: Yes Status: Chronic patient educated on benefits of weight reduction. plan: recommend aerobic exercise 5x/week 30-60min/day recommend following cardiac diabetic diet, low fat diet. (3) Tobacco abuse Current visit: Yes Status: Chronic continue to smoke 1/2ppd no intention to quit plan: nicotine patch (4) COPD (chronic obstructive pulmonary disease) Current visit: Yes Status: Chronic not in exacerbation on home 2L O2 Plan: continue home nebulizer and inhalers continue home O2 supplementation. Qualifiers: COPD type: unspecified COPD Qualified Code(s): J44.9 - Chronic obstructive pulmonary disease, unspecified (5) DVT prophylaxis Current visit: Yes Status: Acute heparin SQ (6) Diabetes mellitus Current visit: Yes Status: Acute HgA1c 6.6 on metformin controlled. ACHS cardiac diabetic diet Low dose SSI. Qualifiers: Diabetes mellitus type: type 2 Diabetes mellitus complication status: without complication Diabetes mellitus usp insulin use: without usp use Qualified Code(s): E11.9 - Type 2 diabetes mellitus without complications Internal Medicine - H&P: HPI Chief complaint: Chest pain Admitted From: Home Plans for Post Hospital Care: Home History of present illness: Ms. Cervantes is a 46 year old female presents with chief complaint of chest pain. Chest pain started this morning and was initially intermittent lasting for 5 seconds described as an dull aching pain 7 out of 10 behind left breast that radiated to the left neck and shoulder and associated with nausea. She denies diaphoresis, worsening of shortness of breath, passing out, palpitations , productive cough, and vomiting. Patient states that initially the pain felt like indigestion however as the day progressed it became more constant which her heartburn does not do. Patient has a history of gastric reflux and takes omeprazole consistently. Patient was recently admitted last month for similar pain. Was evaluated by cardiology who concluded that the patient's chest pain was atypical. During that admission she did have an elevation of troponin 0.24 , which then trended down. During this presentation, her EKG is sinus rhythm without ST-T wave changes and initial troponin is 0.00. Past Med Surg Social Fam HX - Past Medical History Medical history: asthma, CHF, COPD, coronary artery disease, diabetes, GERD, hyperlipidemia, hypertension, pulmonary embolus Psychiatric history: depression - Past Surgical History Surgical History: orthopedic, other - Social History Smoking Status: Current every day smoker Smokeless Tobacco Status: No Alcohol use: none Drug use: none - Family History Mother Adopted: No Family Member Ethnicity: Non- Living Status: Still Living Hx Family Cardiac Disorders: Yes Hx Family Respiratory Disorders: No Hx Family Cancer: No Hx Family GI Disorders: No Hx Family Endocrine Disorder: Yes (diabetes) Hx Family Neuromuscular Disorders: No Hx Family Neurologic Disorders: No Hx Family HEENT Disorders: No Hx Family Autoimmune Disorders: Yes Father Adopted: No Family Member Ethnicity: Non- Living Status: Still Living Hx Family Cardiac Disorders: Yes (HTN) Hx Family Respiratory Disorders: No Hx Family Cancer: No Hx Family GI Disorders: No Hx Family Endocrine Disorder: Yes (DM) Hx Family Neuromuscular Disorders: Yes (ALZHEIMERS) Hx Family Neurologic Disorders: Yes (ALZHIEIMERS) Hx Family HEENT Disorders: No Hx Family Autoimmune Disorders: No Internal Medicine - H&P: Meds Omeprazole [PriLOSEC] 40 mg PO DAILY 03/17/15 [History] Albuterol Sulfate [Proair Hfa] 2 puff IH Q4H PRN 03/16/16 [History] Ipratropium/Albuterol Neb [Duoneb] 3 ml IH Q6H PRN #100 inhsol 03/17/16 [Rx] Aspirin 81 mg PO DAILY #30 tab.chew 05/12/16 [Rx] Atorvastatin [Lipitor] 40 mg PO HS #30 tablet 05/12/16 [Rx] Metoprolol [Lopressor] 25 mg PO BID #60 tablet 05/12/16 [Rx] Gabapentin [Neurontin] 800 mg PO TID #90 capsule 08/31/16 [Rx] Buspirone HCl [Buspar] 10 mg PO TID 10/28/16 [History] Venlafaxine XR (24 HR) [Effexor Xr] 300 mg PO DAILY 10/28/16 [History] Triamcinolone Acet 0.1% CRM [Kenalog] 1 appl TP BID #2 tube 10/30/16 [Rx] ALPRAZolam [Xanax 1 MG Tablet] 1 mg PO QAM AND QHS 01/06/17 [History] Tiotropium Br/Olodaterol HCl [Stiolto Respimat Inhal [place]] 2 puff IH DAILY 05/15 [History] Nicotine Patch [Nicoderm] 14 mg TD DAILY #14 01/09/17 [Rx] Lidocaine [Lidocaine] 1 patch TD DAILY 02/09/17 [History] Trazodone HCl 200 mg PO HS 02/09/17 [History] metFORMIN [Glucophage] 1,000 mg PO DAILY 02/09/17 [History] Allergies clindamycin Allergy (Verified 01/06/17 14:39) Hives ketorolac [From Toradol] Adverse Reaction (Verified 01/06/17 14:39) Migraine tramadol Adverse Reaction (Verified 01/06/17 14:39) Vomiting codeine Allergy (Unknown, Uncoded 01/06/17 14:39) Difficulty Breathing nsaids Allergy (Unknown, Uncoded 01/06/17 14:39) Difficulty Breathing All Systems PM: A 10-system review of systems was performed and is negative for pertinent findings except as documented above in the HPI. Review of systems: Constitutional: Denies fever, chills HEENT: Denies headache, vision changes, neck pain, sore throat, rhinorrhea Heart: Reports chest pain, denies palpitations Lungs: Reports chronic shortness of breath without worsening. denies cough, productive sputum Abdomen: Denies abdominal pain vomiting diarrhea. Reports nausea Back: Denies back pain Kidney: Denies dysuria, hematuria Extremities: Denies swelling, pain Neuro: Denies numbness, and tingling - Constitutional Vitals: Temp Pulse Resp BP Pulse Ox 98.1 F 73 16 127/59 98 02/09/17 16:35 02/09/17 18:35 02/09/17 18:35 02/09/17 18:35 02/09/17 18:35 - Other Additional findings: General: Alert and oriented to place time and situation. Without distress HEENT: Head atraumatic, normocephalic, EOMI, PERRLA, neck nontender to palpation , absent Lymphadenopathy, Moist Mucous Membranes, Heart: Regular rate and rhythm with no murmur, CP not reproducible with palpation Lungs: Clear to auscultation bilaterally Abdomen: Soft nontender, nondistended positive bowel sounds Extremities: 1+ pedal edema bilaterally Neuro: Cranial nerves II through XII intact, sensation equal bilaterally, strength upper and lower extremity 5/5, alert oriented 3 Vascular: Pedal and radialpulses 2 out of 4 Internal Med - H&P Results - Labs CBC & Chem 7: 02/09/17 17:06 02/09/17 17:06 <Ferdinand Vasquez - Last Filed: 02/10/17 04:15> Date of Encounter: 02/10/17 Internal Medicine - H&P: HPI History of present illness: Ms. Cervantes is a 46 year old female All Systems PM: A 10-system review of systems was performed and is negative for pertinent findings except as documented above in the HPI. - Constitutional Vitals: Temp Pulse Resp BP Pulse Ox 97.4 F L 76 16 112/75 96 02/10/17 03:51 02/10/17 03:51 02/10/17 03:51 02/10/17 03:51 02/10/17 03:51 Internal Med - H&P Results - Labs CBC & Chem 7: 02/09/17 17:06 02/09/17 17:06 Labs: Cardiac Enzymes 02/09/17 Range/Units 22:28 Troponin I 0.00 (0-0.03) ng/mL - Attending Attestation I saw and examined pt. I have discussed with resident regarding diagnostic and management plan. I agree with the documentation. Pt present with chest pain. She has multiple risk factors. There is EKG changes with new I and AVL T inversion. Will place pt on continuous cardiac monitoring. Track 3 sets of troponin. Will repeat EKG in AM and consult cardiology for the EKG change. Not place pt on any nitrate because her BP is not tolerate.
[2017-02-09] MEDS: Gabapentin 400 MG CAPSULE PO SCH (21:48)
[2017-02-09] MEDS: traZODone 50 MG TABLET PO SCH (21:49)
[2017-02-09] MEDS: ALPRAZolam 1 MG TABLET PO SCH (21:49)
[2017-02-09] MEDS: *HR* Heparin 5,000 UNIT/ML VIAL SQ SCH (21:50)
[2017-02-09] MEDS: Insulin LISPRO 300 UNITS/3 ML VIAL SQ SCH (21:51)
[2017-02-09] MEDS ORDERED: *HR* Morphine 2 MG/ML SYRINGE IVP PRN (23:50)
[2017-02-10] MEDS: *HR* Heparin 5,000 UNIT/ML VIAL SQ SCH ×3 (05:46→21:21)
[2017-02-10] MEDS: Nicotine 14 MG PATCH.TD24 TD SCH (09:52)
[2017-02-10] MEDS: Venlafaxine XR (24 HR) 150 MG CAP.ER.24H PO SCH (09:53)
[2017-02-10] MEDS: ALPRAZolam 1 MG TABLET PO SCH ×2 (09:53→21:21)
[2017-02-10] MEDS: Gabapentin 400 MG CAPSULE PO SCH ×3 (09:53→21:21)
[2017-02-10] MEDS: Aspirin 81 MG TAB.CHEW PO SCH (09:53)
[2017-02-10] MEDS: Insulin LISPRO 300 UNITS/3 ML VIAL SQ SCH ×4 (09:54→21:22)
[2017-02-10] MEDS: Acetaminophen 325 MG TABLET PO PRN (10:41)
[2017-02-10] MEDS: Ondansetron 4 MG/2 ML VIAL IVP PRN (12:32)
--- NOTE | 2017-02-10 14:13 | Internal Med Progress Note ---
Date of Encounter: 02/10/17 Time of Encounter: 08:40 - Assessment and plan (1) Atypical chest pain Current Visit: Yes Status: Acute Assessment and plan: Patient states that she had chest pain that began on the morning of admission. She reported as a dull aching pain, rated at 7/10 behind her left breast that radiated to her left neck and shoulder, patient has associated nausea. Patient has a history of gastric reflux and takes omeprazole consistently. She was admitted last month for similar pain and was evaluated by cardiology at that time. They concluded the patient's chest pain was atypical. During that admission, she had an elevated troponin, which then trended down and return to normal. For this visit, her EKG is sinus rhythm without any ST changes, troponins are negative 3, chest x-ray is negative for any acute cardiopulmonary disease. The pain is not reproducible with movement or deep respiration. The pain is not reproducible with palpitation either. Cardiology consultation is pending. Patient had an echocardiogram in December, with an LVEF of 6065% with no valvular abnormality. She had an LH C in April, with 20% stenosis and circumflex. Her d-dimer was negative. Patient wears oxygen 2 L at home for COPD. O2 sats are within normal limits with oxygen. Continue telemetry Continue metoprolol, statin, aspirin Continue Zofran for nausea. (2) Morbid obesity with BMI of 40.0-44.9, adult Current Visit: Yes Status: Chronic Assessment and plan: Chronic. Lifestyle changes. (3) Tobacco abuse Current Visit: Yes Status: Chronic Assessment and plan: Pt smokes 1 PPD and states that she would like to quit. She will be sent home with rx for nicotine patches. (4) GERD (gastroesophageal reflux disease) Current Visit: No Status: Chronic Assessment and plan: Chronic. Continue Omeprazole. Qualifiers: Esophagitis presence: esophagitis presence not specified Qualified Code(s) : K21.9 - Gastro-esophageal reflux disease without esophagitis (5) Hypertension Current Visit: No Status: Chronic Assessment and plan: Chronic. Continue Lopressor. Well controlled in hospital setting. Qualifiers: Hypertension type: essential hypertension Qualified Code(s): I10 - Essential (primary) hypertension (6) COPD (chronic obstructive pulmonary disease) Current Visit: Yes Status: Chronic Assessment and plan: No acute exacerbation. Continue home medications and nebulizers prn. Titrate 02 to maintain sats > 92%. Qualifiers: COPD type: unspecified COPD Qualified Code(s): J44.9 - Chronic obstructive pulmonary disease, unspecified (7) Diabetes mellitus, type 2 Current Visit: No Status: Chronic Assessment and plan: A1c 6.6% in Oct, 2016. Reorder for a.m. Continue SSI, accuchecks ac/hs, and diabetic diet. Qualifiers: Diabetes mellitus complication status: without complication Diabetes mellitus joint terminal attack controller insulin use: without half-way use Qualified Code(s): E11.9 - Type 2 diabetes mellitus without complications (8) DVT prophylaxis Current Visit: Yes Status: Acute Assessment and plan: Heparin SQ - Time Spent With Patient less than 15 minutes - Subjective Interval history: Patient was seen and assessed at 8:40 AM. She is sleeping, arouses easily and briefly to verbal stimuli. She reports that her left chest is "a little achy". She denies radiation, shortness of breath, nausea. She denies any shortness of breath above her normal level. Patient states that she is ready to quit smoking and says that she would like to go home with nicotine patches. - Constitutional Vitals: Temp Pulse Resp BP Pulse Ox 98.3 F 68 16 144/81 93 02/10/17 12:25 02/10/17 12:25 02/10/17 12:25 02/10/17 12:25 02/10/17 12:25 General appearance: Present: cooperative, A&O X 3, morbidly obese, pleasant, no acute distress, answers questions appropriately - Eye Eye exam: Present: normal appearance, conjuntiva pink - ENT ENT exam: Present: mucous membranes moist, normal exam - Neck Neck exam general surgery: Present: normal inspection. Absent: lymphadenopathy , tenderness - Respiratory Respiratory exam: Present: CTAB. Absent: chest wall tenderness, decreased breath sounds, rales, rhonchi, stridor, wheezes - Cardiovascular Cardiovascular exam: Present: RRR, +S1, +S2. Absent: clicks, diastolic murmur, gallop, systolic murmur - GI/Abdominal GI/Abdominal exam: Present: distended, normal bowel sounds, soft. Absent: hepatomegaly, tenderness, no peritoneal signs - Extremities Exam Extremities exam: Present: normal inspection, warm, radial pulses palpable and symmetrical. Absent: pedal edema, tenderness - Neurological Exam Neurological exam: Present: alert, oriented X3. Absent: altered, no focal deficits, facial droop, speech deficit - Skin Skin exam: Present: dry, intact, normal color, warm. Absent: rash, urticaria Internal Medicine: Result - Labs CBC & Chem 7: 02/09/17 17:06 02/09/17 17:06 Labs: Cardiac Enzymes 02/09/17 02/10/17 Range/Units 22:28 04:42 Troponin I 0.00 0.00 (0-0.03) ng/mL - ABG Interpretation ABG results: PT/INR, D-dimer D-Dimer 493 ng/mLFEU (0-500) 02/09/17 17:06 Consult Discharge Plan - Plan Referrals: Dulce Bradford MD [Primary Care Provider] -
[2017-02-10] MEDS ORDERED: *HR* HYDROcodone/Acet 5/325 mg TABLET PO ONE ×2 (16:25→22:04)
[2017-02-10] MEDS: Nitroglycerin 0.4 MG TAB.SUBL SL PRN ×2 (16:55→17:25)
--- NOTE | 2017-02-10 18:09 | Cardiology Consult Note ---
<Chloe Nguyen - Last Filed: 02/10/17 18:06> Date of Encounter: 02/10/17 Time of Encounter: 16:30 Assessment and Plan (1) Atypical chest pain Current Visit: Yes Status: Acute Per cardiology: -Atypical chest pain. Reproduceable upon palpation. -ECG with no ischemic changes. ECG reviewed with , suspect changes related to lead placement. -Echo 01/06/17 with LVEF 60-65%, indeterminate diastolic function, no significant valvular dysfunction, all thorn[place] with normal motion. -LHC 04/2016 with 20% mid circumflex stenosis, all other vessels angiographically free of disease. -Do not suspect chest pain cardiac in nature. -Recommend follow up with GI specialist. -Recommend patient obtain mammogram, states was ordered by PCP. -Cardiology will sign off and will follow in outpatient setting. Patient has follow up scheduled 02/18/17. Discussion w patient/family: The assessment and plan as outlined above was discussed with the patient who expressed understanding and agreement. All questions were answered. Thank you for involving us in the care of your patient. Please call with any questions. Discussed and reviewed with . History of Present Illness Consult date: 02/09/17 Requesting physician: Lobo Aburto Consult reason: chest pain Chief complaint: chest pain History of present illness: Ms. Cervantes is a 46 year old female who presented to [facility] with complaints of left sided chest pain. CHest pain occured at rest while grocery shopping while riding in scooter. Patient denies aggravating or alleviating factors. Patient reports feels like a "heaviness." Past Med Surg Social Fam HX - Past Medical History Attestation: Yes The following information was validated with the patient. Source: patient, old records reviewed Medical history: asthma, CHF, COPD, coronary artery disease, diabetes, GERD, hyperlipidemia, hypertension, pulmonary embolus Psychiatric history: depression - Past Surgical History Surgical History: orthopedic, other - Social History Smoking Status: Current every day smoker Smokeless Tobacco Status: No Alcohol use: none Drug use: none - Family History Mother Adopted: No Family Member Ethnicity: Non- Living Status: Still Living Hx Family Cardiac Disorders: Yes Hx Family Respiratory Disorders: No Hx Family Cancer: No Hx Family GI Disorders: No Hx Family Endocrine Disorder: Yes (DM) Hx Family Neuromuscular Disorders: No Hx Family Neurologic Disorders: No Hx Family HEENT Disorders: No Hx Family Autoimmune Disorders: Yes Hx Family Psychosocial Disorders: Yes (depression) Father Adopted: No Family Member Ethnicity: Non- Living Status: Still Living Hx Family Cardiac Disorders: Yes (HTN) Hx Family Respiratory Disorders: No Hx Family Cancer: No Hx Family GI Disorders: No Hx Family Endocrine Disorder: Yes (DM) Hx Family Neuromuscular Disorders: Yes (ALZHEIMERS) Hx Family Neurologic Disorders: Yes (Alzheimers) Hx Family HEENT Disorders: No Hx Family Autoimmune Disorders: No Medications and Allergies Omeprazole [PriLOSEC] 40 mg PO DAILY 03/17/15 [History] Albuterol Sulfate [Proair Hfa] 2 puff IH Q4H PRN 03/16/16 [History] Ipratropium/Albuterol Neb [Duoneb] 3 ml IH Q6H PRN #100 inhsol 03/17/16 [Rx] Aspirin 81 mg PO DAILY #30 tab.chew 05/12/16 [Rx] Atorvastatin [Lipitor] 40 mg PO HS #30 tablet 05/12/16 [Rx] Metoprolol [Lopressor] 25 mg PO BID #60 tablet 05/12/16 [Rx] Gabapentin [Neurontin] 800 mg PO TID #90 capsule 08/31/16 [Rx] Buspirone HCl [Buspar] 10 mg PO TID 10/28/16 [History] Venlafaxine XR (24 HR) [Effexor Xr] 300 mg PO DAILY 10/28/16 [History] Triamcinolone Acet 0.1% CRM [Kenalog] 1 appl TP BID #2 tube 10/30/16 [Rx] ALPRAZolam [Xanax 1 MG Tablet] 1 mg PO QAM AND QHS 01/06/17 [History] Tiotropium Br/Olodaterol HCl [Stiolto Respimat Inhal [place]] 2 puff IH DAILY 05/15 [History] Nicotine Patch [Nicoderm] 14 mg TD DAILY #14 01/09/17 [Rx] Lidocaine [Lidocaine] 1 patch TD DAILY 02/09/17 [History] Trazodone HCl 200 mg PO HS 02/09/17 [History] metFORMIN [Glucophage] 1,000 mg PO DAILY 02/09/17 [History] Allergies clindamycin Allergy (Verified 01/06/17 14:39) Hives ketorolac [From Toradol] Adverse Reaction (Verified 01/06/17 14:39) Migraine tramadol Adverse Reaction (Verified 01/06/17 14:39) Vomiting codeine Allergy (Unknown, Uncoded 01/06/17 14:39) Difficulty Breathing nsaids Allergy (Unknown, Uncoded 01/06/17 14:39) Difficulty Breathing All Systems Review: A 10-system review of systems was performed and is negative for pertinent findings except as documented above in the HPI. - Cardiovascular Cardiovascular: as per HPI, chest pain at rest Physical Examination Vital Signs, Last 4 Hours Temp Pulse Resp BP Pulse Ox 02/10/17 17:05 99/52 02/10/17 15:42 98.0 F 92 18 114/78 95 General: Conversant, No Apparent Distress HEENT: Atraumatic, Normocephaly, Mucus Membranes Moist Neck: No JVD, Normal carotid pulses Cardiac: Reg Rate and Rhythm, Normal S1 and S2, No Murmur Lungs: Normal Breath Sounds, No Wheeze, Rales, Rhonchi Neuro: Alert and responsive, No focal deficits noted Abdomen: Soft, Non-Tender Skin: No rashes noted on visualized skin Musculoskeletal: No Chest Wall Tenderness Extremities: No Clubbing, No Cyanosis, No Edema, Normal Pulses Results 02/09/17 17:06 02/09/17 17:06 Lab Results Current Medications Acetaminophen (Tylenol) 650 mg PO Q6HR PRN PRN Reason: Mild Pain (1-3) Stop: 08/11/17 20:04 Last Admin: 02/10/17 10:41 Dose: 650 mg Albuterol Sulfate (Albuterol Inhaler) 2 puff IH Q4H PRN PRN Reason: Shortness Of Breath Stop: 08/11/17 20:07 Albuterol/Ipratropium (Duoneb) 3 ml IH Q6H PRN PRN Reason: Shortness Of Breath Stop: 08/11/17 20:07 Alprazolam (Xanax) 1 mg PO QAM AND QHS [facility] PRN Reason: Protocol Stop: 08/11/17 21:01 Last Admin: 02/10/17 09:53 Dose: 1 mg Aspirin (Aspirin) 81 mg PO DAILY [facility] Stop: 08/12/17 09:01 Last Admin: 02/10/17 09:53 Dose: 81 mg Atorvastatin Calcium (Lipitor) 40 mg PO HS [facility] Stop: 08/11/17 21:01 Last Admin: 02/09/17 21:52 Dose: Not Given Buspirone HCl (Buspar) 10 mg PO TID [facility] Stop: 08/11/17 21:01 Last Admin: 02/10/17 14:48 Dose: 10 mg Dextrose/Water (Dextrose 50% (Syg)) 25 ml IVP AD PRN PRN Reason: Hypoglycemia Stop: 08/11/17 20:09 Gabapentin (Neurontin) 800 mg PO TID [facility] Stop: 08/11/17 21:01 Last Admin: 02/10/17 14:48 Dose: 800 mg Glucagon (Glucagen) 1 mg IM ONCE PRN PRN Reason: Hypoglycemia Stop: 08/11/17 20:09 Glucose (Gluctose) 15 gm PO ONCE PRN PRN Reason: Hypoglycemia Stop: 08/11/17 20:09 Glucose (Gluctose) 30 gm PO ONCE PRN PRN Reason: Hypoglycemia Stop: 08/11/17 20:09 Heparin Sodium (Porcine) (Heparin) 5,000 unit SQ Q8HCO [facility] Stop: 08/11/17 22:01 Last Admin: 02/10/17 14:48 Dose: 5,000 unit Dextrose (Dextrose 5%) 1,000 mls @ 100 mls/hr IVC .Q10H PRN PRN Reason: HYPOGLYCEMIA Stop: 08/11/17 20:09 Insulin Human Lispro (Humalog) 0 units SQ [facility] PRN Reason: Protocol Stop: 08/11/17 21:01 Last Admin: 02/09/17 21:51 Dose: Not Given Insulin Human Lispro (Humalog) 0 units SQ TIDAC [facility] PRN Reason: Protocol Stop: 08/12/17 07:31 Last Admin: 02/10/17 17:22 Dose: Not Given Metoprolol Tartrate (Lopressor) 25 mg PO BID [facility] Stop: 08/11/17 21:01 Last Admin: 02/10/17 09:53 Dose: 25 mg Morphine Sulfate (Morphine Sulfate) 1 mg IVP Q6HR PRN PRN Reason: Pain Stop: 08/11/17 23:51 Naloxone HCl (Narcan) 0.4 mg IVP Q2MIN PRN PRN Reason: Opioid Reversal Stop: 08/11/17 20:04 Nicotine (Nicoderm) 14 mg TD DAILY [facility] PRN Reason: Protocol Stop: 08/12/17 09:01 Last Admin: 02/10/17 09:52 Dose: 14 mg Nitroglycerin (Nitroglycerin) 0.4 mg SL Q5MIN PRN PRN Reason: Chest Pain Stop: 08/12/17 16:25 Last Admin: 02/10/17 17:25 Dose: 0.4 mg Omeprazole (Prilosec) 40 mg PO 0630 [facility] Stop: 08/12/17 06:31 Last Admin: 02/10/17 05:46 Dose: 40 mg Ondansetron HCl (Zofran) 4 mg IVP Q8HR PRN PRN Reason: Nausea And Vomiting Stop: 08/11/17 20:04 Last Admin: 02/10/17 12:32 Dose: 4 mg Pharmacy Profile Note (Patient Taking Own Medication) 2 each IH DAILY [facility] Stop: 08/12/17 09:01 Last Admin: 02/10/17 10:11 Dose: Not Given Trazodone HCl (Trazodone) 200 mg PO HS [facility] Stop: 08/11/17 21:01 Last Admin: 02/09/17 21:49 Dose: 200 mg Venlafaxine HCl (Effexor Xr) 300 mg PO DAILY [facility] PRN Reason: Protocol Stop: 08/12/17 09:01 Last Admin: 02/10/17 09:53 Dose: 300 mg Laboratory Tests 02/09/17 02/09/17 02/09/17 17:06 17:06 17:06 Hgb 10.6 L Creatinine 0.81 Troponin I 0.00 02/09/17 02/10/17 22:28 04:42 Hgb Creatinine Troponin I 0.00 0.00 - Imaging and Cardiology Chest Xray: report reviewed Echo: report reviewed Cardiac cath: report reviewed - EKG Interpretation EKG results cardiology: personally reviewed (ECG with SR, HR 83.), other ( Telemetry reviewed with average HR 77, PACs noted.) Consult Discharge Plan - Plan Referrals: Dulce Bradford MD [Primary Care Provider] - <Srini Avila - Last Filed: 02/11/17 10:19> Date of Encounter: 02/11/17 Assessment and Plan Discussion w patient/family: The assessment and plan as outlined above was discussed with the patient and/or family members who expressed understanding and agreement. All questions were answered. Thank you for involving us in the care of your patient. Please call with any questions. History of Present Illness History of present illness: Ms. Cervantes is a 46 year old female All Systems Review: A 10-system review of systems was performed and is negative for pertinent findings except as documented above in the HPI. Physical Examination Vital Signs, Last 4 Hours Temp Pulse Resp BP Pulse Ox 02/11/17 07:52 97.9 F 74 16 97/46 95 Results 02/11/17 05:56 02/11/17 06:54 Lab Results 02/11/17 02/11/17 05:56 06:54 WBC 5.0 Hgb 9.9 L Hct 32.7 L Plt Count 308 Sodium 141 Potassium 3.8 Chloride 104 Carbon Dioxide 31 H BUN 9 Creatinine 0.81 Glucose 181 H Calcium 9.6 - Attending Attestation PT seen and examined independently, chart reviewed, old records, previous [facility] reviewed, essentailly agree with findings above, my evaluation as below; CC Chest pain HPI: Pt complains of sudden onset left chest pain, 10/10 at most severe, started at rest, lasts minutes to hours, more severe if sits up or lies on her left side, more severe with deep inspiration or cough, improved with rest and changes in position. Pain is different from her recollection of reflux pain, which she describes as a burning pain, this discomfort is more of a sharp, stabbing discomfort. She can provoke chest pain by lying on her right side and coughing. She has undergone several previous evaluations for this discomfort, including [facility] 05/14 which showed trivial CAD, no focal stenosis over 30%. IMP/PLAN 1. Chest pain, atypical for anginal etiology, known trivial CAD, troponins negative, low risk for cardiovascular etiology of chest pain, symptoms most consistent with musculoskeletal etiology, pt is at low cardiovascular risk for hospital discharge, possible GI consultation as an outpatient. 2. GERD. - some improvement with PPI, recommend GI consult, to eval for Barretts esophagus and possible esphogeal spasm. 3. Tobacco abuse, against medical advice, recommend smoking cessation, pt declines pharmacologic support, wants to try to quit on her own. 4. Morbid obesity with unsucessful weight loss, discussed lifestyle changes, weight loss goal : 15 pounds over next three months PT has outpatient follow up scheduled in our office, recommend keep that follow up appointment.
[2017-02-10] MEDS: traZODone 50 MG TABLET PO SCH (21:20)
[2017-02-11] MEDS: *HR* Heparin 5,000 UNIT/ML VIAL SQ SCH ×2 (05:55→14:41)
[2017-02-11 06:25] LABS: Basophils % 0.6 %; Eosinophils # 0.1 K/mcL (0.0-0.6); Eosinophils % 1.8 %; Hematocrit 32.7 % (35.3-44.9); Hemoglobin 9.9 g/dL (11.5-15.4); Immature Granulocytes % 0.2 % (0-4); Lymphocytes # 2.5 K/mcL (0.6-4.6); Lymphocytes % 49.6 %; Mean Corpuscular HGB Conc 30.3 g/dL (31.6-35.5); Mean Corpuscular Hemoglobin 26.9 pg (28.0-33.3); Mean Corpuscular Volume 88.9 fL (83.0-100.0); Mean Platelet Volume 9.9 fL (9.4-12.4); Monocytes # 0.3 K/mcL (0.0-1.3); Monocytes % 6.7 %; Platelet Count 308 K/mcL (140-400); Red Blood Count 3.68 M/mcL (3.82-4.97); Red Cell Distribution Width 15.9 % (11.5-14.5); Segmented Neutrophils % 41.1 %
--- NOTE | 2017-02-11 07:02 | Electrocardiograph Report ---
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
[2017-02-11] MEDS: Insulin LISPRO 300 UNITS/3 ML VIAL SQ SCH ×3 (08:01→16:52)
[2017-02-11 08:21] LABS: BUN/Creatinine Ratio 11 (6-26); Blood Urea Nitrogen 9 mg/dL (7-20); Calcium 9.6 mg/dL (8.6-10.8); Carbon Dioxide 31 mEq/L (19-29); Chloride 104 mEq/L (98-109); Glucose 181 mg/dL (70-99); Osmolality,Calculated 295 (280-300); Potassium 3.8 mEq/L (3.5-4.5); Sodium 141 mEq/L (136-145); eGFR For African Americans > 60 (> 60); eGFR For Non-African Americans > 60 (> 60)
[2017-02-11] MEDS: Aspirin 81 MG TAB.CHEW PO SCH (08:57)
[2017-02-11] MEDS: Gabapentin 400 MG CAPSULE PO SCH ×2 (08:58→14:40)
[2017-02-11] MEDS: Venlafaxine XR (24 HR) 150 MG CAP.ER.24H PO SCH (08:58)
[2017-02-11] MEDS: ALPRAZolam 1 MG TABLET PO SCH (08:59)
[2017-02-11] MEDS: Nicotine 14 MG PATCH.TD24 TD SCH (08:59)
--- NOTE | 2017-02-11 11:52 | Discharge Summary ---
Date of Encounter: 02/11/17 Time of Encounter: 08:40 - Discharge Diagnosis (1) Atypical chest pain Priority: Primary Status: Acute Comments: Pt presents with atypical chest pain, today she rates the pain 2/10 and is mid- sternal in nature with some radiation to L upper chest. She denies n/v/d, dizziness, cough, or back pain. She states that the pain felt like indigestion, however, it persisted, which that pain usually does not. Cardiology has seen pt and has signed off, recommend GI consult and mammogram. Pt is aware and agreeable. (2) Morbid obesity with BMI of 40.0-44.9, adult Priority: Secondary Status: Chronic Comments: Chronic. Lifestyle modificaitons. (3) Tobacco abuse Priority: Secondary Status: Chronic Comments: Pt will go home with rx for nicotine patches. Currently using them in the hospital and is tolerating them well. (4) GERD (gastroesophageal reflux disease) Priority: Secondary Status: Chronic Comments: Current chest pain is most likely GERD. Discussed spacing Omeprazole out throughout the day, 20mg po bid, instead of daily. I will refer pt to GI for possible EGD. Qualifiers: Esophagitis presence: esophagitis presence not specified Qualified Code(s) : K21.9 - Gastro-esophageal reflux disease without esophagitis (5) Hypertension Priority: Secondary Status: Chronic Comments: Chronic. Continue home medications. Qualifiers: Hypertension type: essential hypertension Qualified Code(s): I10 - Essential (primary) hypertension (6) COPD (chronic obstructive pulmonary disease) Priority: Secondary Status: Chronic Comments: No acute exacerbation, does not have home 02. Lungs clear and diminshed. Pt not requiring supplemental 02. Continue home medications. Qualifiers: COPD type: unspecified COPD Qualified Code(s): J44.9 - Chronic obstructive pulmonary disease, unspecified (7) Diabetes mellitus, type 2 Priority: Secondary Status: Chronic Comments: A1c 7.0%. Pt states that she is not adherent to diet/exercise regimen. Pt will follow up with PCP for continued treatment and for any necessary medication adjustments. Qualifiers: Diabetes mellitus complication status: without complication Diabetes mellitus jail insulin use: without salvage determiner use Qualified Code(s): E11.9 - Type 2 diabetes mellitus without complications (8) DVT prophylaxis Priority: Secondary Status: Acute Comments: Heparin SQ - Discharge Medications Prescriptions: Nicotine Patch [Nicoderm] 14 mg TD DAILY #28 Omeprazole 20 mg PO BID #45 tablet. Home Medications: Albuterol Sulfate [Proair Hfa] 2 puff IH Q4H PRN 03/16/16 [History] Ipratropium/Albuterol Neb [Duoneb] 3 ml IH Q6H PRN #100 inhsol 03/17/16 [Rx] Aspirin 81 mg PO DAILY #30 tab.chew 05/12/16 [Rx] Atorvastatin [Lipitor] 40 mg PO HS #30 tablet 05/12/16 [Rx] Metoprolol [Lopressor] 25 mg PO BID #60 tablet 05/12/16 [Rx] Gabapentin [Neurontin] 800 mg PO TID #90 capsule 08/31/16 [Rx] Buspirone HCl [Buspar] 10 mg PO TID 10/28/16 [History] Venlafaxine XR (24 HR) [Effexor Xr] 300 mg PO DAILY 10/28/16 [History] Triamcinolone Acet 0.1% CRM [Kenalog] 1 appl TP BID #2 tube 10/30/16 [Rx] ALPRAZolam [Xanax 1 MG Tablet] 1 mg PO QAM AND QHS 01/06/17 [History] Tiotropium Br/Olodaterol HCl [Stiolto Respimat Inhal [place]] 2 puff IH DAILY 05/15 [History] Lidocaine 1 patch TD DAILY 02/09/17 [History] Trazodone HCl 200 mg PO HS 02/09/17 [History] metFORMIN [Glucophage] 1,000 mg PO DAILY 02/09/17 [History] Nicotine Patch [Nicoderm] 14 mg TD DAILY #28 02/11/17 [Rx] Omeprazole 20 mg PO BID #45 tablet. 02/11/17 [Rx] Allergies/Adverse Reactions: clindamycin Allergy (Verified 01/06/17 14:39) Hives ketorolac [From Toradol] Adverse Reaction (Verified 01/06/17 14:39) Migraine tramadol Adverse Reaction (Verified 01/06/17 14:39) Vomiting codeine Allergy (Unknown, Uncoded 01/06/17 14:39) Difficulty Breathing nsaids Allergy (Unknown, Uncoded 01/06/17 14:39) Difficulty Breathing Procedures/tests Complete & Pending: Procedures Performed prior 72 hours Category Date Time Status ECG 12 lead ECG [ECG] Routine Y 02/10/17 10:28 Completed EKG [ECG 12 lead ECG] [ECG] AM 0600 Y 02/10/17 06:00 Completed Date of admission: 02/09/17 19:56 Primary care physician: Dulce Bradford MD Consults: 02/09/17 20:38 Consult to Cardiology [CONS] Routine Comment: Consulting Provider: Cardiology Catalina Reason for Consult: chest pain with EKG changes: t-wave inversions in leads I and aVL Call Completed: No Discharging clinician: Priya Baker Anticipated date of discharge: 02/11/17 - Patient Status Disposition: Home, Self-Care Condition: Good Functional capacity at discharge: independent ambulation Overall status at discharge: patient is back to baseline - Discharge Instructions Follow Up With: Dulce Bradford MD [Primary Care Provider] - 02/19/17 10:30 am Additional Instructions: Follow up with your family doctor in the next 7-10 days for a follow up visit. Get your mammogram that your family doctor ordered. GI will call you for an appointment, or you may have your PCP refer you to GI for a scope. Return to the ER as needed for any other problems or concerns or if your symptoms return or worsen. Take your normal home medications. STart taking your Omeprazole twice daily. Avoid spicy, fatty, fried foods, and try to eat smaller, more frequent meals. Continue using the Nicotine patches. - Diet and Activity Activity: increase activity as tolerated Diet: diabetic diet, low fat, low cholesterol Hospital course: Ms. Cervantes is a 46 year old female with past medical history of chest pain, morbid obesity, PE, tobacco abuse, GERD, hypertension, diabetes, anxiety, depression, drug seeking behavior, COPD, anemia who presented to the emergency department on February 09 with complaint of chest pain and hypertension. Chest pain was left chest with radiation to left arm. Onset of chest pain was one hour prior to arrival to the emergency department. She said it was in her left chest and was gripping, it was constant, and did not notice any aggravating or relieving factors. She denied nausea, emesis, shortness of breath outside of her normal shortness of breath, chest pain is nonexertional. Patient has a recent echo in December, with an LVEF of 60-65% with no valvular abnormality and no wall motion abnormality. In April,, patient had LHC with 20% stenosis in circumflex artery. Her EKG was normal sinus without ST elevation or depression. The chest pain was not reproducible deep inspiration, movement, or palpation. She did have an elevated d-dimer with a Wells score of 1.5 for prior history of PE. Chest x-ray was negative for any acute cardiopulmonary disease. Patient was seen by cardiology, they do not suspect chest pain is cardiac in nature and recommended patient follow-up with GI and have a mammogram. Patient states mammograms are even ordered by primary care. Cardiology has signed off and will follow-up in the office on 02/18/17. Today patient states that chest pain is 1/10 and is significantly better. We discussed her A1c of 7.0%. We discussed that it has been steadily increasing over time. Patient admits that she has not always adherent to ADA diet and does not exercise. I offered diabetes education, she said she will speak to her primary care about this. Patient also has been using a nicotine patch in the hospital and would like to continue using them at home. Pt was admitted with elevated d-dimer, prior history of PE, CTA negative for PE or acute process. Pt with chronic anemia, states that she is supposed to take iron supplements and does not take them because of nausea. Hgb steady at 9.9, no need for transfusion at this time. This appears to be at her baseline. Pt will see pcp for further treatment and evaluation. Pt has discussed with multiple staff members what she needs to say to get a scope when she comes back in. Pt was insistent that cardiology told her that GI would be in to see her today and scope her either today or tomorrow. I spoke with cardiology combine operator who state that they recommended to her that she see GI outpatient. Vitals are stable, pt is ready for discharge. Time spent discussing smoking cessation with patient: 3 to 10 minutes - Time Spent with Patient Total time spent providing and/or coordinating discharge services: Less than 30 minutes - Constitutional Vitals: Temp Pulse Resp BP Pulse Ox 97.9 F 76 16 95/56 97 02/11/17 11:17 02/11/17 11:17 02/11/17 11:17 02/11/17 11:17 02/11/17 11:17 General appearance: Present: cooperative, A&O X 3, morbidly obese, pleasant, no acute distress, answers questions appropriately - Head Head exam: Present: normal inspection - Eye Eye exam: Present: normal appearance, conjuntiva pink - ENT ENT exam: Present: mucous membranes moist, normal exam, normal external ear exam - Neck Neck exam general surgery: Present: normal inspection. Absent: lymphadenopathy , tenderness - Respiratory Respiratory exam: Present: CTAB. Absent: chest wall tenderness, decreased breath sounds, rales, respiratory distress, rhonchi, stridor, wheezes - Cardiovascular Cardiovascular exam: Present: RRR, +S1, +S2. Absent: clicks, diastolic murmur, gallop, systolic murmur - GI/Abdominal GI/Abdominal exam: Present: distended, normal bowel sounds, soft. Absent: hepatomegaly, tenderness - Extremities Exam Extremities exam: Present: full ROM, normal capillary refill, normal inspection , warm, radial pulses palpable and symmetrical. Absent: mottling, pedal edema, tenderness - Neurological Exam Neurological exam: Present: alert, oriented X3, no focal deficits. Absent: facial droop, speech deficit - Skin Skin exam: Present: dry, intact, normal color, warm. Absent: rash
[2017-02-11] MEDS: Acetaminophen 325 MG TABLET PO PRN (12:36)
[2017-02-11] MEDS: Sucralfate 1 GM TABLET PO SCH ×2 (13:14→16:52)
[2017-02-11] MEDS: Ondansetron 4 MG/2 ML VIAL IVP PRN (14:02)
--- NOTE | 2017-02-11 14:03 | Electrocardiograph Report ---
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
--- NOTE | 2017-02-11 14:29 | Electrocardiograph Report ---
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
[2017-02-11 15:51] VITALS: BP 106/75
== END 2017-02-11 18:13 | disposition home or self-care (01) ==
LOC: EMEROO 16:33 → 3BNU 16:33
PROVIDERS: ADMIT Internal Medicine; ATTEND Nurse Practitioner Family

== ENCOUNTER 2017-04-24 14:49 | Observation (INO) ==
[2017-04-24] MEDS ORDERED: Aspirin 81 MG TAB.CHEW PO ONE (14:53)
[2017-04-24 15:31] LABS: Basophils % 0.4 %; Eosinophils # 0.1 K/mcL (0.0-0.6); Eosinophils % 0.9 %; Hematocrit 37.3 % (35.3-44.9); Hemoglobin 11.8 g/dL (11.5-15.4); Immature Granulocytes % 0.4 % (0-4); Lymphocytes # 2.5 K/mcL (0.6-4.6); Lymphocytes % 30.6 %; Mean Corpuscular HGB Conc 31.6 g/dL (31.6-35.5); Mean Corpuscular Hemoglobin 27.8 pg (28.0-33.3); Mean Corpuscular Volume 87.8 fL (83.0-100.0); Mean Platelet Volume 9.8 fL (9.4-12.4); Monocytes # 0.5 K/mcL (0.0-1.3); Monocytes % 5.5 %; Neutrophils # 5.1 K/mcL (1.6-8.9); Platelet Count 423 K/mcL (140-400); Red Blood Count 4.25 M/mcL (3.82-4.97); Red Cell Distribution Width 15.9 % (11.5-14.5); Segmented Neutrophils % 62.2 %
[2017-04-24 15:42] LABS: INR 1.1; Prothrombin Time 11.9 Seconds (9.4-12.1)
[2017-04-24 15:50] LABS: BUN/Creatinine Ratio 8 (6-26); Blood Urea Nitrogen 7 mg/dL (7-20); Calcium 9.8 mg/dL (8.6-10.8); Carbon Dioxide 23 mEq/L (19-29); Chloride 107 mEq/L (98-109); Glucose 124 mg/dL (70-99); Osmolality,Calculated 285 (280-300); Potassium 3.8 mEq/L (3.5-4.5); Sodium 138 mEq/L (136-145); eGFR For African Americans > 60 (> 60); eGFR For Non-African Americans > 60 (> 60)
--- NOTE | 2017-04-24 15:53 | Emergency Department Note ---
Disposition Clinical Impression: Chest pain Qualifiers: Chest pain type: unspecified Qualified Code(s): R07.9 - Chest pain, unspecified Disposition: Admitted As Inpatient Condition: Fair Time of Disposition: 17:46 Chest Pain HPI - General Chief Complaint: ED Chest Pain Stated Complaint: chest pain Time Seen by Provider: 04/24/17 14:51 Source: patient, EMS Limitations: no limitations Vital Signs Reviewed: Yes Nursing Notes Reviewed: Yes - History of Present Illness HPI Narrative: Patient is a 47-year-old female who presents to [facility] ED with a chief complaint of left-sided chest pain. States her symptoms started yesterday evening and have been continuous throughout the day today. Admits to some nausea, no vomiting. No fever or chills. No recent cough or cold. Patient states she has had similar episodes in the past. She has had a heart catheter within the last year which showed 20% nonocclusive atherosclerotic disease in one vessel. Other vessels were free of disease. Past medical history significant for CAD, COPD, tobacco abuse, pulmonary embolus. Patient denies any abdominal pain or problems with urination or bowel movements. Pt complaint: chest pain Onset (ago): hour(s) Duration: constant Onset: during rest Pain Location: left chest Severity: moderate Severity scale (1-10): 6 Quality: heaviness Pain Radiation: LUE Improves with: nothing Worsens with: exertion Associated symptoms: Reports: nausea. Denies: vomiting, dyspnea, fever - Related Data Home Medications Medication Instructions Recorded Confirmed Albuterol Sulfate [Proair Hfa] 2 puff IH Q4H PRN 03/16/16 02/09/17 Buspirone HCl [Buspar] 10 mg PO TID 10/28/16 02/09/17 Venlafaxine XR (24 HR) [Effexor Xr] 300 mg PO DAILY 10/28/16 02/09/17 ALPRAZolam [Xanax 1 MG Tablet] 1 mg PO QAM AND QHS 01/06/17 02/09/17 Tiotropium Br/Olodaterol HCl 2 puff IH DAILY 01/06/17 02/09/17 [Stiolto Respimat Inhal [place]] Lidocaine 1 patch TD DAILY 02/09/17 02/09/17 Trazodone HCl 200 mg PO HS 02/09/17 02/09/17 metFORMIN [Glucophage] 1,000 mg PO DAILY 02/09/17 02/09/17 Fluticasone Propionate [Flovent 1 puff IH BID 04/24/17 04/24/17 Hfa] Gabapentin [Neurontin] 600 mg PO BID 04/24/17 04/24/17 Lisinopril [Zestril] 10 mg PO DAILY 04/24/17 04/24/17 Metoprolol [Lopressor] 25 mg PO DAILY 04/24/17 04/24/17 Omeprazole [PriLOSEC] 40 mg PO DAILY 04/24/17 04/24/17 Topiramate [Topamax] 25 mg PO BID 04/24/17 04/24/17 Previous Rx's Medication Instructions Recorded Ipratropium/Albuterol Neb [Duoneb] 3 ml IH Q6H PRN #100 inhsol 03/17/16 Aspirin 81 mg PO DAILY #30 tab.chew 05/12/16 Atorvastatin [Lipitor] 40 mg PO HS #30 tablet 05/12/16 Allergies Allergy/AdvReac Type Severity Reaction Status Date / Time clindamycin Allergy Hives Verified 04/24/17 15:05 ketorolac [From Toradol] AdvReac Migraine Verified 04/24/17 15:05 tramadol AdvReac Vomiting Verified 04/24/17 15:05 codeine Allergy Unknown Difficulty Uncoded 04/24/17 15:05 Breathing nsaids Allergy Unknown Difficulty Uncoded 04/24/17 15:05 Breathing All systems ED: reviewed and negative except as stated. 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 history: Reports: polycystic ovary syndrome - Social History Smoking Status: Current every day smoker Alcohol use: Reports: none Drug use: Reports: none Physical Exam - General Limitations: no limitations General appearance: alert, in no apparent distress, obese - Head Head exam: atraumatic, normocephalic, normal inspection - Eye Eye exam: Present: normal appearance, EOMI - ENT ENT exam: normal exam, normal oropharynx, mucous membranes moist - Neck Neck exam: Present: normal inspection, full ROM, trachea midline - Chest Chest inspection: Present: normal inspection, symmetric chest wall rise - Respiratory Respiratory exam: Present: normal lung sounds bilaterally - Cardiovascular Cardiovascular exam: Present: regular rate, normal rhythm, normal heart sounds - Abdominal Exam Abdominal exam: Present: soft, Non-Tender. Absent: tenderness, distention, guarding, rebound, rigidity - Extremities Exam Extremities exam: Present: normal inspection, full ROM. Absent: tenderness, pedal edema - Back Exam Back exam: Present: normal inspection, full ROM. Absent: tenderness - Neurological Exam Neurological exam: Present: alert, oriented X3 - Psychiatric Psychiatric exam: Present: normal affect, normal mood - Skin Skin exam: Present: warm, dry, intact, normal color Course Course Narrative: Patient seen and examined. Chest pain, worse with exertion. Cardiopulmonary workup initiated. - Reevaluation(s) Reevaluation #1: Labwork appears unremarkable. We will admit for observation and repeat troponins. Patient still having about 5 out of 10 chest pain. She has had 3 nitros and states this is helped ease up some of the pressure. Time: 17:01 Reevaluation #2: Discussed with hospitalist Ivory Aparicio who has accepted patient for admission. Time: 17:10 Vital Signs Temperature 98 F 04/24/17 14:51 Pulse Rate 71 04/24/17 14:51 Respiratory Rate 16 04/24/17 14:51 Blood Pressure 118/80 04/24/17 14:51 O2 Sat by Pulse Oximetry 95 04/24/17 14:51 Temperature 98 F 04/24/17 14:51 Pulse Rate 66 04/24/17 17:00 Respiratory Rate 20 04/24/17 17:21 Blood Pressure 94/68 04/24/17 17:21 O2 Sat by Pulse Oximetry 92 04/24/17 17:00 Oxygen Delivery Oxygen Delivery Room Air Chest Pain - Medical Records Medical records reviewed: Yes I reviewed the patient's medical records. - Lab Data Lab results reviewed: Yes I reviewed the patient's lab results. Result diagrams: 04/24/17 15:10 04/24/17 15:10 Lab Results 04/24/17 04/24/17 04/24/17 Range/Units 15:10 15:10 15:10 WBC 8.2 (4.3-11.1) K/mcL RBC 4.25 (3.82-4.97) M/mcL Hgb 11.8 (11.5-15.4) g/dL Hct 37.3 (35.3-44.9) % MCV 87.8 (83.0-100.0) fL MCH 27.8 L (28.0-33.3) pg MCHC 31.6 (31.6-35.5) g/dL RDW 15.9 H (11.5-14.5) % Plt Count 423 H (140-400) K/mcL MPV 9.8 (9.4-12.4) fL Immature Gran % 0.4 (0-4) % Seg Neutrophils % 62.2 % Lymphocytes % 30.6 % Monocytes % 5.5 % Eosinophils % 0.9 % Basophils % 0.4 % Neutrophils # 5.1 (1.6-8.9) K/mcL Lymphocytes # 2.5 (0.6-4.6) K/mcL Monocytes # 0.5 (0.0-1.3) K/mcL Eosinophils # 0.1 (0.0-0.6) K/mcL Basophils # 0.0 (0.0-0.2) K/mcL PT 11.9 (9.4-12.1) Seconds INR 1.1 D-Dimer 495 (0-500) ng/mLFEU Sodium 138 (136-145) mEq/L Potassium 3.8 (3.5-4.5) mEq/L Chloride 107 (98-109) mEq/L Carbon Dioxide 23 (19-29) mEq/L BUN 7 (7-20) mg/dL Creatinine 0.85 (0.57-1.11) mg/dL Est GFR ( Amer) > 60 (> 60) Est GFR (Non-Af Amer) > 60 (> 60) BUN/Creatinine Ratio 8 (6-26) Glucose 124 H (70-99) mg/dL Calculated Osmolality 285 (280-300) Calcium 9.8 (8.6-10.8) mg/dL Troponin I (0-0.03) ng/mL 04/24/17 Range/Units 15:10 WBC (4.3-11.1) K/mcL RBC (3.82-4.97) M/mcL Hgb (11.5-15.4) g/dL Hct (35.3-44.9) % MCV (83.0-100.0) fL MCH (28.0-33.3) pg MCHC (31.6-35.5) g/dL RDW (11.5-14.5) % Plt Count (140-400) K/mcL MPV (9.4-12.4) fL Immature Gran % (0-4) % Seg Neutrophils % % Lymphocytes % % Monocytes % % Eosinophils % % Basophils % % Neutrophils # (1.6-8.9) K/mcL Lymphocytes # (0.6-4.6) K/mcL Monocytes # (0.0-1.3) K/mcL Eosinophils # (0.0-0.6) K/mcL Basophils # (0.0-0.2) K/mcL PT (9.4-12.1) Seconds INR D-Dimer (0-500) ng/mLFEU Sodium (136-145) mEq/L Potassium (3.5-4.5) mEq/L Chloride (98-109) mEq/L Carbon Dioxide (19-29) mEq/L BUN (7-20) mg/dL Creatinine (0.57-1.11) mg/dL Est GFR ( Amer) (> 60) Est GFR (Non-Af Amer) (> 60) BUN/Creatinine Ratio (6-26) Glucose (70-99) mg/dL Calculated Osmolality (280-300) Calcium (8.6-10.8) mg/dL Troponin I 0.00 (0-0.03) ng/mL - Radiology Data Radiology results reviewed: Yes I reviewed the patient's radiology results. Chest X-Ray 04/24/17 14:53 IMPRESSION: Stable mild cardiomegaly. Increased lung markings at the left retrocardiac region, may be related to minimal bronchitis. D/ / César Bruner MD / César Bruner MD Interpreting Provider: César Bruner MD - EKG Data EKG attestation: Yes I reviewed and interpreted this EKG. EKG results narrative: EKG done at 1502 shows normal sinus rhythm with a rate of 70 beats per minute. No acute ST elevation. Minimal ST depressions in 1, aVL, 2. Findings unchanged from EKG done 06/11/2011. Heart Score - Score History: Slightly Suspicious EKG: Non Specific repolarisation Disturbance Age: 45-65 Risk Factors: Equal/Greater than 3 risk factor or history of atherosclerotic disease Troponin: Less than normal limit HEART Score Total: 4
--- NOTE | 2017-04-24 15:56 | Emergency Department Note ---
START Narrative - START START: I examined this patient and my medical decision-making was reviewed with the REGULATORY COMPLIANCE DIRECTOR/PA/Advanced Practice Nurse/Resident Physician. I agree with the documented findings, disposition and treatment plan as described except to the extent set forth below. ED attending note: Patient seen with emergency medicine resident Dr. FRANCOIS. We independently evaluated the patient. We independently had [id number] contact with the patient. Please see a copy of his note for details of the history and physical, evaluation, management and disposition of this emergency Department patient. Briefly: A 47-year-old female by EMS for chest pain. Cardiac catheter within the past year showing 20% occlusive disease. Patient having increasing symptoms of exertional dyspnea chest pain and radiation down the left arm. EKG shows nonspecific ST-T changes. HEART score, is 4 with which is moderate risk. We will await troponin patient is really gotten aspirin in the ED. We will be getting analgesics. Nitroglycerin. Admission pending. Provided 35 minutes critical care services to this patient.
[2017-04-24] MEDS: Nitroglycerin 0.4 MG TAB.SUBL SL PRN ×3 (16:41→16:53)
--- NOTE | 2017-04-24 19:22 | Internal Med History&Physical ---
Date of Encounter: 04/24/17 Time of Encounter: 19:20 Assessment and Plan (1) Chest pain Current visit: Yes Status: Acute history of non obstructive CAD with cardiac catheterization performed in 2015 for unstable angina which reported angiographically free coronaries with the exception of 20% stenosis in the mid-circumflex coronary artery, her EKG was non ischemic, troponin as unremarkable, will cycle troponin, get cardiology input regarding medical management, Qualifiers: Chest pain type: other chest pain Qualified Code(s): R07.89 - Other chest pain; R07.8 - Other chest pain (2) GERD (gastroesophageal reflux disease) Current visit: Yes Status: Chronic continue PPI Qualifiers: Esophagitis presence: without esophagitis Qualified Code(s): K21.9 - Gastro -esophageal reflux disease without esophagitis (3) Hypertension Current visit: Yes Status: Chronic continue antihypertensives with BP monitoring Qualifiers: Hypertension type: essential hypertension Qualified Code(s): I10 - Essential (primary) hypertension (4) COPD (chronic obstructive pulmonary disease) Current visit: Yes Status: Chronic stable, continue home medications with PRN nebs Qualifiers: COPD type: emphysema Emphysema type: panlobular Qualified Code(s): J43.1 - Panlobular emphysema (5) Diabetes mellitus, type 2 Current visit: Yes Status: Chronic hx of well controlled DM type 2(A1c of 7% in 01/2017) on metformin, will hold it and do basal bolus insulin regimen with SSI for hyperglycemia coverage Qualifiers: Diabetes mellitus complication status: with neurologic complications Diabetes mellitus complication detail: with polyneuropathy Diabetes mellitus penitentiary insulin use: without moth exterminator use Qualified Code(s): E11.42 - Type 2 diabetes mellitus with diabetic polyneuropathy Internal Medicine - H&P: HPI Chief complaint: Chest pain Admitted From: Emergency Dept Plans for Post Hospital Care: Home History of present illness: Ms. Cervantes is a 47 year old female with a history of non-obstructive CAD/AGGIE not on CPAP/hypertension/copd on 2L/min of home oxygen who came to the ER today with chest pain. She reports that she was in her usual state of health until this morning when whilst trying to get her kids ready for school she started experiencing chest pain. The pain was located on the left side of the chest, it radiated to her left neck, face, jaw and arm. The pain was 6-7/10 in severity, was constant in timing, was worse with exertion, improved with rest, she is unable to tell whether it resolved with nitro because she does not have one at home. She reports associated diaphoresis, dyspnea, palpitations, feeling of apprehension, lightheadedness, nausea with an episode of vomiting. Of note she had a cardiac catheterization performed in 04/2016 for unstable angina which reported angiographically free coronaries with the exception of 20 % stenosis in the mid-circumflex coronary artery. Past medical history asthma COPD with chronic respiratory failure on 2 L/minute of home oxygen chronic lung disease dyslipidemia non-obstructive CAD Gerd hypertension Past Med Surg Social Fam HX - Past Medical History Source: patient, old records reviewed Medical history: asthma, CHF, COPD, coronary artery disease, diabetes, GERD, hyperlipidemia, hypertension, pulmonary embolus, other (AGGIE not on CPAP yet) Psychiatric history: depression - Past Surgical History Surgical History: orthopedic, other - Social History Smoking Status: Current every day smoker Smokeless Tobacco Status: No Alcohol use: none Drug use: none - Family History Mother Adopted: No Family Member Ethnicity: Non- Living Status: Still Living Hx Family Cardiac Disorders: Yes Hx Family Respiratory Disorders: No Hx Family Cancer: No Hx Family GI Disorders: No Hx Family Endocrine Disorder: Yes (DM) Hx Family Neuromuscular Disorders: No Hx Family Neurologic Disorders: No Hx Family HEENT Disorders: No Hx Family Autoimmune Disorders: Yes Father Adopted: No Family Member Ethnicity: Non- Living Status: Still Living Hx Family Cardiac Disorders: Yes (HTN) Hx Family Respiratory Disorders: No Hx Family Cancer: No Hx Family GI Disorders: No Hx Family Endocrine Disorder: Yes (DM) Hx Family Neuromuscular Disorders: Yes (ALZHEIMERS) Hx Family Neurologic Disorders: Yes (Alzheimers) Hx Family HEENT Disorders: No Hx Family Autoimmune Disorders: No Internal Medicine - H&P: Meds Albuterol Sulfate [Proair Hfa] 2 puff IH Q4H PRN 03/16/16 [History] Ipratropium/Albuterol Neb [Duoneb] 3 ml IH Q6H PRN #100 inhsol 03/17/16 [Rx] Aspirin 81 mg PO DAILY #30 tab.chew 05/12/16 [Rx] Atorvastatin [Lipitor] 40 mg PO HS #30 tablet 05/12/16 [Rx] Buspirone HCl [Buspar] 10 mg PO TID 10/28/16 [History] Venlafaxine XR (24 HR) [Effexor Xr] 300 mg PO DAILY 10/28/16 [History] ALPRAZolam [Xanax 1 MG Tablet] 1 mg PO TID PRN 01/06/17 [History] Tiotropium Br/Olodaterol HCl [Stiolto Respimat Inhal [place]] 2 puff IH DAILY 05/15 [History] Lidocaine 1 patch TD DAILY 02/09/17 [History] Trazodone HCl 100 - 200 mg PO HS 02/09/17 [History] metFORMIN [Glucophage] 1,000 mg PO BID 02/09/17 [History] Fluticasone Propionate [Flovent Hfa] 1 puff IH BID 04/24/17 [History] Gabapentin [Neurontin] 600 mg PO BID 04/24/17 [History] Lisinopril [Zestril] 10 mg PO DAILY 04/24/17 [History] Metoprolol [Lopressor] 25 mg PO DAILY 04/24/17 [History] Omeprazole [PriLOSEC] 40 mg PO DAILY 04/24/17 [History] Topiramate [Topamax] 25 mg PO BID 04/24/17 [History] 3 Allergy/AdvReac Type Severity Reaction Status Date / Time clindamycin Allergy Hives Verified 04/24/17 15:05 ketorolac [From Toradol] AdvReac Migraine Verified 04/24/17 15:05 tramadol AdvReac Vomiting Verified 04/24/17 15:05 codeine Allergy Unknown Difficulty Uncoded 04/24/17 15:05 Breathing nsaids Allergy Unknown Difficulty Uncoded 04/24/17 15:05 Breathing All Systems PM: A 10-system review of systems was performed and is negative for pertinent findings except as documented above in the HPI. - Constitutional Vitals: Temp Pulse Resp BP Pulse Ox 98.0 F 69 12 104/74 98 04/24/17 17:59 04/24/17 17:59 04/24/17 17:59 04/24/17 17:59 04/24/17 18:17 GENERAL: Adult female, appears morbidly obese, lying in bed, Alert, not in obvious pain or distress HEENT: NC/AT, EOMI, PERRLA, anicteric sclera, normal conjunctiva, short neck, clear nares, moist mucous membranes, RESP: Lungs are clear to auscultation bilaterally, with good AE, no crackles or wheeze CARDIO: Normal heart sounds with RRR, no murmurs, no JVD, no ankle edema GI: Soft, full, no tenderness, no organomegaly felt, normal bowel sounds heard MUSCULOSKELETAL: Grossly normal movements bilaterally, no deformities noted, NEUROLOGIC: CN 2-12 intact grossly. No gross motor/sensory deficit appreciated, SKIN: no skin rash or ulcers noted Internal Med - H&P Results - Labs CBC & Chem 7: 04/24/17 15:10 04/25/17 04:54 - EKG Data -: EKG Interpreted by Myself EKG shows normal: sinus rhythm - Diagnostic Studies Chest x-ray Status: image reviewed by me
[2017-04-24] MEDS ORDERED: Naloxone 0.4 MG/ML INJ IVP PRN (20:49)
[2017-04-24] MEDS ORDERED: 0.9 % Sodium Chloride 500 ML IVC ONE (20:49)
[2017-04-24] MEDS ORDERED: D5% in Water 1,000 ML IVC PRN (20:54)
[2017-04-24] MEDS ORDERED: *HR* Morphine 2 MG/ML SYRINGE IVP ONE (20:54)
[2017-04-24] MEDS ORDERED: Dextrose Gel 15 GM PO PRN ×2 (20:54)
[2017-04-24] MEDS ORDERED: *HR* Dextrose 50 % in Water (Syg) 50 ML SYRINGE IVP PRN (20:54)
[2017-04-24] MEDS: Gabapentin 300 MG CAPSULE PO SCH (21:34)
[2017-04-24] MEDS: traZODone 50 MG TABLET PO SCH (21:34)
[2017-04-24] MEDS: Topiramate 25 MG TABLET PO SCH (21:34)
[2017-04-24] MEDS: Insulin LISPRO 300 UNITS/3 ML VIAL SQ SCH ×2 (21:35→21:41)
[2017-04-24] MEDS: (Fluticasone Propionate [Flovent Hfa] 1 PUFF) IH SCH (21:46)
[2017-04-24] MEDS ORDERED: Acetaminophen 325 MG TABLET PO PRN (23:10)
--- NOTE | 2017-04-24 23:28 | Cardiology Consult Note ---
Date of Encounter: 04/24/17 Time of Encounter: 23:25 Assessment and Plan (1) Chest pain Current Visit: Yes Status: Acute Atypical angina with nonspecific ST changes laterally and a preserved ejection fraction on recent echocardiogram with only 20% midcircumflex disease by left heart catheter April 2016. Recommend outpatient ETT for further evaluation. Risk factor modification and optimization of medications Qualifiers: Chest pain type: other chest pain Qualified Code(s): R07.89 - Other chest pain; R07.8 - Other chest pain Code(s): R07.9 - Chest pain, unspecified SNOMED Code(s): 76208449 Discussion w patient/family: The assessment and plan as outlined above was discussed with the patient and/or family members who expressed understanding and agreement. All questions were answered. Thank you for involving us in the care of your patient. Please call with any questions. History of Present Illness Consult date: 04/24/17 Requesting physician: Aye Reich Consult reason: Chest pain Chief complaint: pain in my chest History of present illness: Ms. Cervantes is a 47 year old female who presents to emergency department complaining of chest pain. She describes chest pain occurring this morning while taking her kids to school. This may have been related to mild stress as well. She states she was sick to her stomach nauseated dizzy and lightheaded. She recently presented January 2017 for a similar reason. She had a left heart catheter performed April 2016 with 20% mid circumflex disease only otherwise unremarkable. An echocardiogram December 2016 showed a preserved ejection fraction of 65% and no significant valvular abnormalities. She currently is resting comfortably denying any chest pain, shortness of breath , orthopnea or PND however does have a headache from her nitroglycerin. Past Med Surg Social Fam HX - Past Medical History Medical history: asthma, CHF, COPD, coronary artery disease, diabetes, GERD, hyperlipidemia, hypertension, pulmonary embolus Psychiatric history: depression - Past Surgical History Surgical History: orthopedic, other - Social History Smoking Status: Current every day smoker Smokeless Tobacco Status: No Alcohol use: none Drug use: none - Family History Mother Adopted: No Family Member Ethnicity: Non- Living Status: Still Living Hx Family Cardiac Disorders: Yes Hx Family Respiratory Disorders: No Hx Family Cancer: No Hx Family GI Disorders: No Hx Family Endocrine Disorder: Yes (DM) Hx Family Neuromuscular Disorders: No Hx Family Neurologic Disorders: No Hx Family HEENT Disorders: No Hx Family Autoimmune Disorders: Yes Father Adopted: No Family Member Ethnicity: Non- Living Status: Still Living Hx Family Cardiac Disorders: Yes (HTN) Hx Family Respiratory Disorders: No Hx Family Cancer: No Hx Family GI Disorders: No Hx Family Endocrine Disorder: Yes (DM) Hx Family Neuromuscular Disorders: Yes (ALZHEIMERS) Hx Family Neurologic Disorders: Yes (Alzheimers) Hx Family HEENT Disorders: No Hx Family Autoimmune Disorders: No Medications and Allergies Albuterol Sulfate [Proair Hfa] 2 puff IH Q4H PRN 03/16/16 [History] Ipratropium/Albuterol Neb [Duoneb] 3 ml IH Q6H PRN #100 inhsol 03/17/16 [Rx] Aspirin 81 mg PO DAILY #30 tab.chew 05/12/16 [Rx] Atorvastatin [Lipitor] 40 mg PO HS #30 tablet 05/12/16 [Rx] Buspirone HCl [Buspar] 10 mg PO TID 10/28/16 [History] Venlafaxine XR (24 HR) [Effexor Xr] 300 mg PO DAILY 10/28/16 [History] ALPRAZolam [Xanax 1 MG Tablet] 1 mg PO TID PRN 01/06/17 [History] Tiotropium Br/Olodaterol HCl [Stiolto Respimat Inhal [place]] 2 puff IH DAILY 05/15 [History] Lidocaine 1 patch TD DAILY 02/09/17 [History] Trazodone HCl 100 - 200 mg PO HS 02/09/17 [History] metFORMIN [Glucophage] 1,000 mg PO BID 02/09/17 [History] Fluticasone Propionate [Flovent Hfa] 1 puff IH BID 04/24/17 [History] Gabapentin [Neurontin] 600 mg PO BID 04/24/17 [History] Lisinopril [Zestril] 10 mg PO DAILY 04/24/17 [History] Metoprolol [Lopressor] 25 mg PO DAILY 04/24/17 [History] Omeprazole [PriLOSEC] 40 mg PO DAILY 04/24/17 [History] Topiramate [Topamax] 25 mg PO BID 04/24/17 [History] 3 Allergy/AdvReac Type Severity Reaction Status Date / Time clindamycin Allergy Hives Verified 04/24/17 15:05 ketorolac [From Toradol] AdvReac Migraine Verified 04/24/17 15:05 tramadol AdvReac Vomiting Verified 04/24/17 15:05 codeine Allergy Unknown Difficulty Uncoded 04/24/17 15:05 Breathing nsaids Allergy Unknown Difficulty Uncoded 04/24/17 15:05 Breathing All Systems Review: A 10-system review of systems was performed and is negative for pertinent findings except as documented above in the HPI. Physical Examination Vital Signs, Last 4 Hours BP 04/24/17 22:26 114/75 General: Conversant, No Apparent Distress HEENT: Atraumatic, Normocephaly, Mucus Membranes Moist Neck: No JVD, Normal carotid pulses Cardiac: Reg Rate and Rhythm, Normal S1 and S2, No Murmur Lungs: Normal Breath Sounds, No Wheeze, Rales, Rhonchi Neuro: Alert and responsive, No focal deficits noted Abdomen: Soft, Non-Tender Skin: No rashes noted on visualized skin Musculoskeletal: No Chest Wall Tenderness Extremities: No Clubbing, No Cyanosis, No Edema, Normal Pulses Results 04/24/17 15:10 04/24/17 15:10 - EKG Interpretation EKG results cardiology: personally reviewed (LDH with nonspecific anterolateral ST changes) Consult Discharge Plan - Plan Referrals: Dulce Bradford MD [Primary Care Provider] -
[2017-04-25 05:42] LABS: BUN/Creatinine Ratio 10 (6-26); Blood Urea Nitrogen 9 mg/dL (7-20); Calcium 9.1 mg/dL (8.6-10.8); Carbon Dioxide 26 mEq/L (19-29); Chloride 110 mEq/L (98-109); Glucose 181 mg/dL (70-99); Magnesium 1.8 mg/dL (1.6-2.6); Osmolality,Calculated 293 (280-300); Phosphorous 3.4 mg/dL (2.3-4.7); Potassium 4.1 mEq/L (3.5-4.5); Sodium 140 mEq/L (136-145); eGFR For African Americans > 60 (> 60); eGFR For Non-African Americans > 60 (> 60)
[2017-04-25] MEDS: *HR* Heparin 5,000 UNIT/ML VIAL SQ SCH ×3 (09:20→20:26)
[2017-04-25] MEDS: Insulin LISPRO 300 UNITS/3 ML VIAL SQ SCH ×4 (09:22→21:22)
[2017-04-25] MEDS: Gabapentin 300 MG CAPSULE PO SCH ×2 (09:31→20:26)
[2017-04-25] MEDS: Venlafaxine XR (24 HR) 150 MG CAP.ER.24H PO SCH (09:31)
[2017-04-25] MEDS: (Fluticasone Propionate [Flovent Hfa] 1 PUFF) IH SCH ×2 (09:32→20:28)
[2017-04-25] MEDS: Topiramate 25 MG TABLET PO SCH ×2 (09:32→20:25)
[2017-04-25] MEDS: Aspirin 81 MG TAB.CHEW PO SCH (09:32)
[2017-04-25] MEDS: (Tiotropium Br/Olodaterol Hcl [Stiolto Respimat Inhal) IH SCH (09:33)
[2017-04-25] MEDS: ALPRAZolam 1 MG TABLET PO PRN ×3 (09:39→20:25)
[2017-04-25] MEDS: traZODone 50 MG TABLET PO SCH (20:25)
[2017-04-25] MEDS ORDERED: *HR* Morphine 2 MG/ML SYRINGE IVP ONE (22:07)
--- NOTE | 2017-04-25 22:58 | Internal Med Progress Note ---
Date of Encounter: 04/25/17 Time of Encounter: 12:56 - Assessment and plan (1) Chest pain Current Visit: Yes Status: Acute Assessment and plan: Cardiology recommends outpatient follow-up with intense medical management. Second troponin pending. If negative, patient possibly would be able to be discharged with follow-up. Qualifiers: Chest pain type: other chest pain Qualified Code(s): R07.89 - Other chest pain; R07.8 - Other chest pain (2) History of pulmonary embolism Current Visit: No Status: Chronic (3) Hypertension Current Visit: Yes Status: Chronic Qualifiers: Hypertension type: essential hypertension Qualified Code(s): I10 - Essential (primary) hypertension (4) GERD (gastroesophageal reflux disease) Current Visit: Yes Status: Chronic Qualifiers: Esophagitis presence: without esophagitis Qualified Code(s): K21.9 - Gastro -esophageal reflux disease without esophagitis - Subjective Interval history: Patient still complaints of chest pain ongoing for several hours. Not relieved by nitro again and BP did not tolerate so was stopped. She denies SOB, palpitations, numbness/tingling. - Constitutional Vitals: Temp Pulse Resp BP Pulse Ox 98.3 F 74 16 113/80 98 04/25/17 19:56 04/25/17 19:56 04/25/17 19:56 04/25/17 19:56 04/25/17 19:56 General appearance: Present: cooperative, A&O X 3, morbidly obese, no acute distress - Head Head exam: Present: atraumatic, normocephalic - Neck Neck exam general surgery: Present: supple, trachea midline. Absent: lymphadenopathy Additional comments: No JVD - Respiratory Respiratory exam: Present: CTAB. Absent: accessory muscle use, rales, rhonchi, wheezes - Cardiovascular Cardiovascular exam: Present: RRR, +S1, +S2. Absent: diastolic murmur, gallop, rubs, systolic murmur - GI/Abdominal GI/Abdominal exam: Present: normal bowel sounds, soft, no peritoneal signs. Absent: distended, tenderness - Extremities Exam Extremities exam: Present: warm, radial pulses palpable and symmetrical. Absent : calf tenderness, cyanotic, pedal edema Internal Medicine: Result - Labs CBC & Chem 7: 04/24/17 15:10 04/25/17 04:54 Labs: BMP 04/25/17 04:54 Sodium 140 Potassium 4.1 Chloride 110 H Carbon Dioxide 26 BUN 9 Creatinine 0.90 Glucose 181 H Calcium 9.1 Cardiac Enzymes 04/25/17 Range/Units 18:51 Troponin I 0.00 (0-0.03) ng/mL - ABG Interpretation ABG results: PT/INR, D-dimer PT 11.9 Seconds (9.4-12.1) 04/24/17 15:10 D-Dimer 495 ng/mLFEU (0-500) 04/24/17 15:10 Consult Discharge Plan - Plan Referrals: Dulce Bradford MD [Primary Care Provider] -
[2017-04-26 04:37] LABS: Basophils % 0.3 %; Eosinophils # 0.1 K/mcL (0.0-0.6); Hematocrit 35.3 % (35.3-44.9); Hemoglobin 10.9 g/dL (11.5-15.4); Immature Granulocytes % 0.3 % (0-4); Lymphocytes # 2.8 K/mcL (0.6-4.6); Lymphocytes % 40.7 %; Mean Corpuscular HGB Conc 30.9 g/dL (31.6-35.5); Mean Corpuscular Hemoglobin 27.3 pg (28.0-33.3); Mean Corpuscular Volume 88.5 fL (83.0-100.0); Mean Platelet Volume 9.5 fL (9.4-12.4); Monocytes # 0.5 K/mcL (0.0-1.3); Monocytes % 7.6 %; Neutrophils # 3.4 K/mcL (1.6-8.9); Platelet Count 338 K/mcL (140-400); Red Blood Count 3.99 M/mcL (3.82-4.97); Red Cell Distribution Width 15.5 % (11.5-14.5); Segmented Neutrophils % 49.1 %
[2017-04-26 04:48] LABS: BUN/Creatinine Ratio 10 (6-26); Blood Urea Nitrogen 9 mg/dL (7-20); Calcium 9.6 mg/dL (8.6-10.8); Carbon Dioxide 26 mEq/L (19-29); Chloride 105 mEq/L (98-109); Glucose 187 mg/dL (70-99); Osmolality,Calculated 290 (280-300); Potassium 3.6 mEq/L (3.5-4.5); Sodium 138 mEq/L (136-145); eGFR For African Americans > 60 (> 60); eGFR For Non-African Americans > 60 (> 60)
[2017-04-26] MEDS: *HR* Heparin 5,000 UNIT/ML VIAL SQ SCH (05:52)
[2017-04-26 07:56] VITALS: BP 108/69
[2017-04-26] MEDS ORDERED: GI Cocktail 40 ML EACH PO ONE (08:19)
[2017-04-26] MEDS: Insulin LISPRO 300 UNITS/3 ML VIAL SQ SCH ×2 (09:14→12:40)
[2017-04-26] MEDS: Topiramate 25 MG TABLET PO SCH (09:15)
[2017-04-26] MEDS: Venlafaxine XR (24 HR) 150 MG CAP.ER.24H PO SCH (09:15)
[2017-04-26] MEDS: Aspirin 81 MG TAB.CHEW PO SCH (09:16)
[2017-04-26] MEDS: Gabapentin 300 MG CAPSULE PO SCH (09:16)
[2017-04-26] MEDS: (Tiotropium Br/Olodaterol Hcl [Stiolto Respimat Inhal) IH SCH (09:16)
[2017-04-26] MEDS: (Fluticasone Propionate [Flovent Hfa] 1 PUFF) IH SCH (09:16)
[2017-04-26] MEDS: ALPRAZolam 1 MG TABLET PO PRN (09:19)
--- NOTE | 2017-04-26 09:51 | Discharge Summary ---
Date of Encounter: 04/26/17 Time of Encounter: 09:49 - Discharge Diagnosis (1) Chest pain Priority: Primary Status: Acute Qualifiers: Chest pain type: other chest pain Qualified Code(s): R07.89 - Other chest pain; R07.8 - Other chest pain (2) History of pulmonary embolism Priority: Secondary Status: Chronic (3) Hypertension Priority: Secondary Status: Chronic Qualifiers: Hypertension type: essential hypertension Qualified Code(s): I10 - Essential (primary) hypertension (4) GERD (gastroesophageal reflux disease) Priority: Secondary Status: Chronic Qualifiers: Esophagitis presence: without esophagitis Qualified Code(s): K21.9 - Gastro -esophageal reflux disease without esophagitis - Discharge Medications Home Medications: Albuterol Sulfate [Proair Hfa] 2 puff IH Q4H PRN 03/16/16 [History] Ipratropium/Albuterol Neb [Duoneb] 3 ml IH Q6H PRN #100 inhsol 03/17/16 [Rx] Aspirin 81 mg PO DAILY #30 tab.chew 05/12/16 [Rx] Atorvastatin [Lipitor] 40 mg PO HS #30 tablet 05/12/16 [Rx] Buspirone HCl [Buspar] 10 mg PO TID 10/28/16 [History] Venlafaxine XR (24 HR) [Effexor Xr] 300 mg PO DAILY 10/28/16 [History] ALPRAZolam [Xanax 1 MG Tablet] 1 mg PO TID PRN 01/06/17 [History] Tiotropium Br/Olodaterol HCl [Stiolto Respimat Inhal [place]] 2 puff IH DAILY 05/15 [History] Lidocaine 1 patch TD DAILY 02/09/17 [History] Trazodone HCl 100 - 200 mg PO HS 02/09/17 [History] metFORMIN [Glucophage] 1,000 mg PO BID 02/09/17 [History] Fluticasone Propionate [Flovent Hfa] 1 puff IH BID 04/24/17 [History] Gabapentin [Neurontin] 600 mg PO BID 04/24/17 [History] Lisinopril [Zestril] 10 mg PO DAILY 04/24/17 [History] Metoprolol [Lopressor] 25 mg PO DAILY 04/24/17 [History] Omeprazole [PriLOSEC] 40 mg PO DAILY 04/24/17 [History] Topiramate [Topamax] 25 mg PO BID 04/24/17 [History] Allergies/Adverse Reactions: 3 Allergy/AdvReac Type Severity Reaction Status Date / Time clindamycin Allergy Hives Verified 04/24/17 15:05 ketorolac [From Toradol] AdvReac Migraine Verified 04/24/17 15:05 tramadol AdvReac Vomiting Verified 04/24/17 15:05 codeine Allergy Unknown Difficulty Uncoded 04/24/17 15:05 Breathing nsaids Allergy Unknown Difficulty Uncoded 04/24/17 15:05 Breathing Date of admission: 04/24/17 17:16 Primary care physician: Dulce Bradford MD Consults: 04/24/17 20:49 Consult to Cardiology [CONS] Routine Comment: Consulting Provider: Cardiology Catalina Reason for Consult: pt with non obstructive CAD presenting with chest pain, pls weigh in, thanks Call Completed: No Discharging clinician: Sumeet Correa - Patient Status Disposition: Home, Self-Care Condition: Fair Functional capacity at discharge: independent ambulation Overall status at discharge: patient is back to baseline - Discharge Instructions Follow Up With: Dulce Bradford MD [Primary Care Provider] - - Diet and Activity Activity: increase activity as tolerated Diet: low fat, low cholesterol, low salt diet Hospital course: Ms. Cervantes is a 47 year old female with a history of non-obstructive CAD/AGGIE not on CPAP/hypertension/copd on 2L/min of home oxygen who came to the ER with chest pain. She reports that she was in her usual state of health until this morning when whilst trying to get her kids ready for school she started experiencing chest pain. The pain was located on the left side of the chest, it radiated to her left neck, face, jaw and arm. The pain was 6-7/10 in severity, was constant in timing, was worse with exertion, improved with rest, she is unable to tell whether it resolved with nitro because she does not have one at home. She reports associated diaphoresis, dyspnea, palpitations, feeling of apprehension, lightheadedness, nausea with an episode of vomiting. She recently presented in January 2017 for similar reasons, she also had a left heart catheter performed in April 2016 with 20% mild circumflex disease only otherwise unremarkable. An echo in 2017 showed preserved ejection fraction of 65% and no significant valve abnormalities. Troponin and EKG were obtained. EKG showed nonspecific ST changes but no other signs of ischemia. Initial troponin was negative. Cardiology was consulted and suggested outpatient ETT for further evaluation. And continue to optimize medical management. Troponins were cycled and they were still negative. Cardiac etiology of chest pain was ruled out at this point. She was discharged home in stable condition - Time Spent with Patient Total time spent providing and/or coordinating discharge services: - Constitutional Vitals: Temp Pulse Resp BP Pulse Ox 97.5 F L 69 18 108/69 97 04/26/17 07:50 04/26/17 07:50 04/26/17 07:50 04/26/17 07:50 04/26/17 07:50 Exam: GENERAL: Adult female, appears morbidly obese, lying in bed, Alert, not in obvious pain or distress HEENT: NC/AT, EOMI, PERRLA, anicteric sclera, normal conjunctiva, short neck, clear nares, moist mucous membranes, RESP: Lungs are clear to auscultation bilaterally, with good AE, no crackles or wheeze CARDIO: Normal heart sounds with RRR, no murmurs, no JVD, no ankle edema GI: Soft, full, no tenderness, no organomegaly felt, normal bowel sounds heard MUSCULOSKELETAL: Grossly normal movements bilaterally, no deformities noted, NEUROLOGIC: CN 2-12 intact grossly. No gross motor/sensory deficit appreciated, SKIN: no skin rash or ulcers noted
--- NOTE | 2017-04-26 22:54 | Event Note ---
Date of Encounter: 04/26/17 Time of Encounter: 13:00 Patient presented for acute onset of chest pain. She had HEART score was 4 warranting a cardiac workup to rule out acute coronary syndrome. An EKG showed nonspecific ST/T wave changes. Cardiac enzymes were repeated and were negative , nitroglycerin did not provide relief. Cardiology was consulted and recommended follow-up with a TITUS. She was monitored on telemetry floor overnight. The cause of her chest pain was not likely cardiac related causes. We tried a GI cocktail to see which was ineffective as well. I offered to try carafate but patient stated this has not helped her in the past. During my bedside encounters with the patient, she exhibited no signs of acute distress. She was resting comfortably in bed at the time of discharge as well. We discussed that this pain may be musculoskelatal related which can be worked up as an outpatient. I also suggested to have an evaluation by a escalator attendant, as she has not had an EGD. This would be beneficial to rule out esophagitis, gastritis or other upper GI causes. She stated that her primary care physician wrote her a referral one month ago but the GI office has not gotten back to her. We made a web request for a GI follow up. Patient was agreeable to this plan and a discharge order was made. I was later notified by RN that patient would like to talk with me. When talking to the patient, she requested pain medication. She is allergic to NSAIDs, Tramadol, and codeine. She informed me that Tylenol does not help her pain. I informed her that I do not feel it is appropriate to provide any other type of pain medications such as narcotics. She voiced her understanding. I was paged once again that she requested pain medication. Given the patient's presentation and our multiple discussion of this matter, I relayed to RN that there would not be anything I can do for her.
--- NOTE | 2017-04-30 09:43 | Electrocardiograph Report ---
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
== END 2017-04-26 13:51 | disposition home or self-care (01) ==
LOC: EMEROO 14:49 → 3ANU 14:49
PROVIDERS: ADMIT Internal Medicine; ATTEND Internal Medicine

== ENCOUNTER 2018-04-06 16:32 | Observation (INO) ==
[2018-04-06] MEDS ORDERED: Aspirin 325 MG TABLET PO STA (17:36)
--- NOTE | 2018-04-06 17:38 | Emergency Department Note ---
Disposition Clinical Impression: Chest pain Qualifiers: Chest pain type: unspecified Qualified Code(s): R07.9 - Chest pain, unspecified Disposition: Admitted As Inpatient Condition: Good Forms: ED Satisfaction Letter Chest Pain HPI - General Chief Complaint: ED Chest Pain Stated Complaint: "CP" Time Seen by Provider: 04/06/18 16:43 Source: patient Mode of arrival: ambulatory Limitations: no limitations Nursing Notes Reviewed: Yes - History of Present Illness HPI Narrative: Patient with significant past medical history including asthma, CHF, coronary artery disease, diabetes, hyperlipidemia, hypertension, previous PE, anxiety, depression who is not currently on anticoagulation presents for evaluation of chest pain. Described as chest pain in the center of her chest. Described as a pressure that gets better with rest but has not relieved. Patient's symptoms started while she was trying to walk and outpatient doctor's appointment. She became acutely short of breath associated diaphoresis and felt like she was going to pass out. She had to hold her self up on the radial of the hallway. She did take one nitroglycerin with some mild relief. Patient was concerns take further nitroglycerin as she had continued worsening migraine. The patient was given pain medication and did take 2 more nitroglycerin with almost complete resolution of her pain. The patient does have a history of PE but is not currently on anticoagulation. She is not able to give me a specific reason why. Patient will undergo further evaluation for both cardiac and pulmonary etiology of chest pain. Severity scale (1-10): 0 - Related Data Home Medications Medication Instructions Recorded Confirmed Buspirone HCl [Buspar] 10 mg PO TID 10/28/16 01/04/18 Venlafaxine XR (24 HR) [Effexor Xr] 300 mg PO DAILY 10/28/16 01/04/18 ALPRAZolam [Xanax 1 MG Tablet] 1 mg PO TID PRN 01/06/17 01/04/18 Trazodone HCl 150 mg PO HS 02/09/17 01/04/18 metFORMIN [Glucophage] 1,000 mg PO BID 02/09/17 01/04/18 Metoprolol [Lopressor] 25 mg PO DAILY 04/24/17 01/04/18 Omeprazole [PriLOSEC] 40 mg PO DAILY 04/24/17 01/04/18 Benztropine [Cogentin] 0.5 mg PO DAILY 11/16/17 01/04/18 Fexofenadine HCl 180 mg PO HS 11/16/17 01/04/18 Glimepiride [Amaryl] 1 mg PO DAILY 11/16/17 01/04/18 Previous Rx's Medication Instructions Recorded Atorvastatin [Lipitor] 40 mg PO HS #30 tablet 05/12/16 Lidocaine Patch [Lidoderm 5% patch] 1 each TP DAILY #7 adh..patch 01/05/18 Allergies Allergy/AdvReac Type Severity Reaction Status Date / Time clindamycin Allergy Hives Verified 02/01/18 20:44 codeine Allergy Difficulty Verified 02/01/18 20:44 Breathing NSAIDS (Non-Steroidal Allergy Difficulty Verified 02/01/18 20:44 Anti-Inflamma Breathing ketorolac [From Toradol] AdvReac Migraine Verified 02/01/18 20:44 tramadol AdvReac Vomiting Verified 02/01/18 20:44 All systems ED: reviewed and negative except as stated. Review of Systems: As Per HPI Constitutional: Denies: fever, chills, weakness ENT ED: Denies: congestion Cardiovascular: Reports: chest pain, dyspnea on exertion Respiratory: Reports: dyspnea Gastrointestinal: Denies: abdominal pain, vomiting Genitourinary: Denies: urgency Musculoskeletal: Denies: back pain Integumentary: Denies: rash, abrasion Neurological: Reports: headache Endocrine: Reports: fatigue Chest Pain PMH - Past Medical History Medical history: Reports: arthritis, asthma, CHF, COPD, coronary artery disease , diabetes, GERD, hyperlipidemia, hypertension, migraine, pulmonary embolus Surgical history: Reports: orthopedic, other Psychiatric history: Reports: anxiety, depression [employer] history: Reports: polycystic ovary syndrome - Social History Smoking Status: Former smoker Alcohol use: Reports: none Drug use: Reports: none Physical Exam General: Well appearing, nontoxic, no acute distress Head: Normocephalic Atraumatic Eyes: PERRL, EOMI ENT: Airway patent, no stridor Neck: supple, no meningismus Chest: Lungs clear to auscultation bilateral Cardiac: Regular rate and rhythm, no murmurs, rubs or gallops Abdomen: soft, nontender, nondistended; no guarding, rebound, or tenderness to percussion Musculoskeletal: Calves symmetric, nontender Skin: No rash, normal skin tone Neuro: Alert and Oriented to person, place, and time; No focal deficit, CN 2-12 symmetric and intact, sensation and strength throughout the arms and legs is intact. - General General appearance: alert Course - Reevaluation(s) Reevaluation #1: D-dimer is elevated. CTA performed without evidence of PE. The patient did have a left heart catheter in 2015. Patient had 20% occlusion of a single vessel without any other significant disease. The patient's symptoms today are concerning given the fact of her exertional history as well as the fact that she has got worsening depressions throughout the lateral leads. Chest pain did not improve after 3 nitroglycerin. Patient was given topical nitro as well as morphine for both her chest pain and her headache. - Consultations Consultation #1: Discussed with hospitalist. Patient accepted for admission. Vital Signs Temperature 98.0 F 04/06/18 16:35 Pulse Rate 97 04/06/18 16:35 Respiratory Rate 18 04/06/18 16:35 Blood Pressure 132/86 04/06/18 16:35 O2 Sat by Pulse Oximetry 95 04/06/18 16:35 Temperature 98.0 F 04/06/18 16:50 Pulse Rate 86 04/06/18 21:00 Respiratory Rate 19 04/06/18 21:00 Blood Pressure 103/69 04/06/18 21:00 O2 Sat by Pulse Oximetry 98 04/06/18 21:00 Oxygen Delivery Oxygen Delivery Room Air Chest Pain - Medical Records Medical records reviewed: Yes I reviewed the patient's medical records. - Lab Data Lab results reviewed: Yes I reviewed the patient's lab results. Result diagrams: 04/06/18 18:00 04/06/18 18:00 Lab Results 04/06/18 04/06/18 04/06/18 Range/Units 18:00 18:00 18:00 WBC 9.3 (4.3-11.1) K/mcL RBC 3.86 (3.82-4.97) M/mcL Hgb 11.0 L (11.5-15.4) g/dL Hct 35.3 (35.3-44.9) % MCV 91.5 (83.0-100.0) fL MCH 28.5 (28.0-33.3) pg MCHC 31.2 L (31.6-35.5) g/dL RDW 15.0 H (11.5-14.5) % Plt Count 302 (140-400) K/mcL MPV 9.8 (9.4-12.4) fL Immature Gran % 0.4 (0-4) % Seg Neutrophils % 64.1 % Lymphocytes % 28.2 % Monocytes % 5.8 % Eosinophils % 1.3 % Basophils % 0.2 % Neutrophils # 6.0 (1.6-8.9) K/mcL Lymphocytes # 2.6 (0.6-4.6) K/mcL Monocytes # 0.5 (0.0-1.3) K/mcL Eosinophils # 0.1 (0.0-0.6) K/mcL Basophils # 0.0 (0.0-0.2) K/mcL PT 11.6 (9.4-12.1) Seconds INR 1.0 APTT 28.2 (26.0-36.0) Seconds D-Dimer 659 H (0-500) ng/mLFEU Sodium (136-145) mEq/L Potassium (3.5-5.1) mEq/L Chloride (98-107) mEq/L Carbon Dioxide (23-29) mEq/L BUN (6-20) mg/dL Creatinine (0.60-1.20) mg/dL Est GFR ( Amer) (> 60) Est GFR (Non-Af Amer) (> 60) BUN/Creatinine Ratio (6-26) Glucose (70-105) mg/dL Calculated Osmolality (280-300) Calcium (8.6-10.3) mg/dL Troponin I (< 0.04) ng/mL B-Natriuretic Peptide 20 (Less than 100) pg/mL 04/06/18 Range/Units 18:00 WBC (4.3-11.1) K/mcL RBC (3.82-4.97) M/mcL Hgb (11.5-15.4) g/dL Hct (35.3-44.9) % MCV (83.0-100.0) fL MCH (28.0-33.3) pg MCHC (31.6-35.5) g/dL RDW (11.5-14.5) % Plt Count (140-400) K/mcL MPV (9.4-12.4) fL Immature Gran % (0-4) % Seg Neutrophils % % Lymphocytes % % Monocytes % % Eosinophils % % Basophils % % Neutrophils # (1.6-8.9) K/mcL Lymphocytes # (0.6-4.6) K/mcL Monocytes # (0.0-1.3) K/mcL Eosinophils # (0.0-0.6) K/mcL Basophils # (0.0-0.2) K/mcL PT (9.4-12.1) Seconds INR APTT (26.0-36.0) Seconds D-Dimer (0-500) ng/mLFEU Sodium 138 (136-145) mEq/L Potassium 3.7 (3.5-5.1) mEq/L Chloride 103 (98-107) mEq/L Carbon Dioxide 27 (23-29) mEq/L BUN 9 (6-20) mg/dL Creatinine 0.70 (0.60-1.20) mg/dL Est GFR ( Amer) > 60 (> 60) Est GFR (Non-Af Amer) > 60 (> 60) BUN/Creatinine Ratio 13 (6-26) Glucose 96 (70-105) mg/dL Calculated Osmolality 285 (280-300) Calcium 9.3 (8.6-10.3) mg/dL Troponin I < 0.03 (< 0.04) ng/mL B-Natriuretic Peptide (Less than 100) pg/mL - Radiology Data Radiology results reviewed: Yes I reviewed the patient's radiology results. - EKG Data EKG attestation: Yes I reviewed and interpreted this EKG. EKG results narrative: EKG shows mild depression throughout the lateral leads of approximately 1 mm without any signs of elevation. The patient EKG is compared to previous of and is more concerning for worsening depressions. Patient's heart rate is 93. CT intervals 180. QRS is 101. QTC is 451.
[2018-04-06] MEDS: Nitroglycerin 0.4 MG TAB.SUBL SL ONE ×3 (18:17→20:21)
[2018-04-06 18:31] LABS: Basophils % 0.2 %; Eosinophils # 0.1 K/mcL (0.0-0.6); Eosinophils % 1.3 %; Hematocrit 35.3 % (35.3-44.9); Immature Granulocytes % 0.4 % (0-4); Lymphocytes # 2.6 K/mcL (0.6-4.6); Lymphocytes % 28.2 %; Mean Corpuscular HGB Conc 31.2 g/dL (31.6-35.5); Mean Corpuscular Hemoglobin 28.5 pg (28.0-33.3); Mean Corpuscular Volume 91.5 fL (83.0-100.0); Mean Platelet Volume 9.8 fL (9.4-12.4); Monocytes # 0.5 K/mcL (0.0-1.3); Monocytes % 5.8 %; Platelet Count 302 K/mcL (140-400); Red Blood Count 3.86 M/mcL (3.82-4.97); Segmented Neutrophils % 64.1 %
[2018-04-06 18:38] LABS: Prothrombin Time 11.6 Seconds (9.4-12.1)
[2018-04-06 18:41] LABS: Activated Partial Thrombo Time 28.2 Seconds (26.0-36.0)
[2018-04-06] MEDS ORDERED: Isovue-370 500 ML INFUS..BTL IV ONE (18:53)
[2018-04-06] MEDS ORDERED: Prochlorperazine 10 MG/2 ML VIAL IVP STA (18:55)
[2018-04-06 18:58] LABS: BUN/Creatinine Ratio 13 (6-26); Blood Urea Nitrogen 9 mg/dL (6-20); Calcium 9.3 mg/dL (8.6-10.3); Carbon Dioxide 27 mEq/L (23-29); Chloride 103 mEq/L (98-107); Glucose 96 mg/dL (70-105); Osmolality,Calculated 285 (280-300); Potassium 3.7 mEq/L (3.5-5.1); Sodium 138 mEq/L (136-145); eGFR For Non-African Americans > 60 (> 60)
[2018-04-06 18:59] LABS: Troponin I < 0.03 ng/mL (< 0.04)
[2018-04-06] MEDS ORDERED: *HR* Morphine 2 MG/ML SYRINGE IVP STA (21:09)
[2018-04-06] MEDS ORDERED: Nitroglycerin 1 INCH/GM PACKET TP STA (21:09)
[2018-04-06] MEDS ORDERED: Ondansetron 4 MG/2 ML VIAL IVP STA (21:09)
[2018-04-06] MEDS ORDERED: Naloxone 0.4 MG/ML INJ IVP PRN (22:38)
[2018-04-06] MEDS ORDERED: *HR* Dextrose 50 % in Water (Syg) 50 ML SYRINGE IVP PRN (22:41)
[2018-04-06] MEDS ORDERED: D5% in Water 1,000 ML IVC PRN (22:41)
[2018-04-06] MEDS ORDERED: Dextrose Gel 15 GM/37.5 ML TUBE PO PRN ×2 (22:41)
[2018-04-07] MEDS: *HR* Heparin 5,000 UNIT/ML VIAL SQ SCH ×4 (01:18→21:03)
--- NOTE | 2018-04-07 01:19 | Internal Med History&Physical ---
Date of Encounter: 04/07/18 Time of Encounter: 01:05 Internal Medicine - H&P: HPI Chief complaint: Chest Pain History of present illness: Ms. Cervantes is a 48 year old female with a past medical history of hypertension , diabetes and obstructive sleep apnea who presents with a chief complaint of chest pain. Patient states that earlier this afternoon she went to see her neurologist for evaluation of possible migraines. 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 She stated she became diaphoretic, short of breath and lightheaded. Symptoms eased up after she sat down and rested. She also noted nausea but no vomiting. Chest discomfort was nonpleuritic, non-positional. She was subsequently taken to the ED and given 2 nitroglycerin with improvement in symptoms after the second dose. She denies any recent illness, fever, chills, cough, abdominal pain or diarrhea. She does endorse some fluid retention in her lower extremities. Patient currently sleeps on 2 pillows stating that she cannot lay down flat and would feel short of breath after doing so. Patient has had intermittent chest pain in the past. She had a left heart catheter performed April 2016 with 20 % mid circumflex disease only otherwise unremarkable. An echocardiogram December 2016 showed a preserved ejection fraction of 65% and no significant valvular abnormalities. Initial laboratory workup showed negative troponins Initial EKG was unremarkable. CTA was performed which was unremarkable. Past Med Surg Social Fam HX - Past Medical History Medical history: arthritis, asthma, CHF, COPD, coronary artery disease, diabetes , GERD, hyperlipidemia, hypertension, migraine, pulmonary embolus Additional medical history: home oxygen 2LNC Psychiatric history: anxiety, depression - Past Surgical History Surgical History: orthopedic, other Additional surgical history: R rotator cuff right. R knee surgery - Social History Smoking Status: Former smoker Smokeless Tobacco Status: No Alcohol use: none Drug use: none - Family History Mother Adopted: No Family Member Ethnicity: Non- Living Status: Still Living Hx Family Cardiac Disorders: Yes Hx Family Respiratory Disorders: No Hx Family Cancer: No Hx Family GI Disorders: No Hx Family Endocrine Disorder: Yes (DM) Hx Family Neuromuscular Disorders: No Hx Family Neurologic Disorders: No Hx Family HEENT Disorders: No Hx Family Autoimmune Disorders: Yes Father Adopted: No Family Member Ethnicity: Non- Living Status: Still Living Hx Family Cardiac Disorders: Yes (HTN) Hx Family Respiratory Disorders: No Hx Family Cancer: No Hx Family GI Disorders: No Hx Family Endocrine Disorder: Yes (DM) Hx Family Neuromuscular Disorders: Yes (ALZHEIMERS) Hx Family Neurologic Disorders: Yes (Alzheimers) Hx Family HEENT Disorders: No Hx Family Autoimmune Disorders: No Internal Medicine - H&P: Meds Atorvastatin [Lipitor] 40 mg PO HS #30 tablet 05/12/16 [Rx] Buspirone HCl [Buspar] 10 mg PO TID 10/28/16 [History] Venlafaxine XR (24 HR) [Effexor Xr] 300 mg PO DAILY 10/28/16 [History] ALPRAZolam [Xanax 1 MG Tablet] 1 mg PO TID PRN 01/06/17 [History] metFORMIN [Glucophage] 1,000 mg PO BID 02/09/17 [History] Metoprolol [Lopressor] 25 mg PO BID 04/24/17 [History] Omeprazole [PriLOSEC] 40 mg PO DAILY 04/24/17 [History] Benztropine [Cogentin] 0.5 mg PO DAILY 11/16/17 [History] Fexofenadine HCl 180 mg PO HS 11/16/17 [History] Glimepiride [Amaryl] 1 mg PO DAILY 11/16/17 [History] Lidocaine Patch [Lidoderm 5% patch] 1 each TP DAILY #7 adh..patch 01/05/18 [Rx] Trazodone HCl 150 mg PO HS 04/06/18 [History] 3 Allergy/AdvReac Type Severity Reaction Status Date / Time clindamycin Allergy Hives Verified 02/01/18 20:44 codeine Allergy Difficulty Verified 02/01/18 20:44 Breathing NSAIDS (Non-Steroidal Allergy Difficulty Verified 02/01/18 20:44 Anti-Inflamma Breathing ketorolac [From Toradol] AdvReac Migraine Verified 02/01/18 20:44 tramadol AdvReac Vomiting Verified 02/01/18 20:44 All Systems PM: A 10-system review of systems was performed and is negative for pertinent findings except as documented above in the HPI. - Constitutional Constitutional: no chills, no fever(s), no night sweats - EENT Eyes: no change in vision, no discharge, no pain, no photophobia Ears: no ear discharge, no ear pain, no tinnitus Nose, mouth and throat: no dysphagia, no nasal discharge, no neck pain, no sore throat - Cardiovascular Cardiovascular ROS IM: no chest pain, no diaphoresis, no dyspnea, no lightheadedness, no palpitations, no syncope - Respiratory Respiratory: no cough, no dyspnea, no wheezing, no excessive phlegm production - Gastrointestinal Gastrointestinal: no abdominal pain, no diarrhea, no hematemesis, no hematochezia, no melena, no nausea, no vomiting - Genitourinary Genitourinary: no change in urinary stream, no dysuria, no flank pain, no hematuria - Musculoskeletal Musculoskeletal ROS IM: no numbness, no tingling - Integumentary Integumentary IM: no rash, no unusual bruising - Neurological Neurological ROS: no confusion, no convulsions, no focal weakness, no numbness, no tingling, no tremor(s) - Hematologic/Lymphatic Hematologic/Lymphatic: no easy bruising - Constitutional Vitals: Temp Pulse Resp BP Pulse Ox 97.6 F 85 18 131/85 94 04/07/18 00:40 04/07/18 00:40 04/07/18 00:40 04/07/18 00:40 04/07/18 00:40 Exam: General: Alert and oriented Skin:Normal color, no rash, no lesions. HEENT:EOM, pupils equal, round and reactive. Cardiovascular:Normal S1 & S2, no rubs, murmurs or gallops. No JVD. Pulse regular. Lungs:Normal breath sounds, no wheezes or crackles. Abdomen:Soft, non-tender, no rigidity. Extremities:No deformity, no edema or tenderness, no joint swelling or clubbing. Neurological:Normal cognition and motor skills. Pulses:Carotid and radial pulses normal +2. Rest of the physical exam is non contributory Internal Med - H&P Results - Labs CBC & Chem 7: 04/07/18 01:13 04/07/18 01:13 - Assessment and plan (1) Chest pain Current Visit: Yes Status: Acute Assessment and plan: Left-sided chest pain which appears to be aggravated with exertion and relieved by rest and nitroglycerin in the setting of negative troponins and unremarkable EKG. Rule out acute coronary syndrome. Patient received loading dose of aspirin Trend troponins Continue telemetry We will obtain echocardiogram in the morning Patient will likely need a nuclear stress test. Consider cardiology consult. Qualifiers: Chest pain type: unspecified Qualified Code(s): R07.9 - Chest pain, unspecified (2) Migraine Current Visit: Yes Status: Acute Assessment and plan: Headaches symptoms consistent with migraine. Will give patient Excedrin Qualifiers: Migraine type: without aura Status migrainosus presence: without status migrainosus Intractability: not intractable Qualified Code(s): G43.009 - Migraine without aura, not intractable, without status migrainosus (3) Diabetes mellitus, type 2 Current Visit: No Status: Chronic Qualifiers: Diabetes mellitus terminal manager insulin use: without terminal manager use Diabetes mellitus complication status: with neurologic complications Diabetes mellitus complication detail: with polyneuropathy Qualified Code(s): E11.42 - Type 2 diabetes mellitus with diabetic polyneuropathy (4) Hypertension Current Visit: No Status: Chronic Assessment and plan: Continue home antihypertensives Qualifiers: Hypertension type: essential hypertension Qualified Code(s): I10 - Essential (primary) hypertension - Time Spent With Patient Total time spent is greater than 50% in coordination of care (as documented) at patient's floor/unit and/or counseling patient:
[2018-04-07] MEDS: Insulin LISPRO 300 UNITS/3 ML VIAL SQ SCH ×4 (01:21→17:25)
[2018-04-07 02:06] LABS: Basophils % 0.3 %; Eosinophils # 0.1 K/mcL (0.0-0.6); Eosinophils % 1.4 %; Hematocrit 34.8 % (35.3-44.9); Hemoglobin 10.8 g/dL (11.5-15.4); Immature Granulocytes % 0.4 % (0-4); Lymphocytes # 2.9 K/mcL (0.6-4.6); Lymphocytes % 35.7 %; Mean Corpuscular Hemoglobin 28.7 pg (28.0-33.3); Mean Corpuscular Volume 92.6 fL (83.0-100.0); Mean Platelet Volume 9.8 fL (9.4-12.4); Monocytes # 0.4 K/mcL (0.0-1.3); Monocytes % 5.5 %; Neutrophils # 4.5 K/mcL (1.6-8.9); Platelet Count 306 K/mcL (140-400); Red Blood Count 3.76 M/mcL (3.82-4.97); Red Cell Distribution Width 15.2 % (11.5-14.5); Segmented Neutrophils % 56.7 %
[2018-04-07 02:24] LABS: Alanine Aminotransferase 35 Units/L (7-52); Albumin 3.9 g/dL (3.5-5.7); Albumin/Globulin Ratio 1.2 (1.1-2.2); Alkaline Phosphatase 128 Units/L (34-104); Aspartate Amino Transferase 21 Units/L (13-39); BUN/Creatinine Ratio 10 (6-26); Bilirubin,Total 0.5 mg/dL (0.3-1.0); Blood Urea Nitrogen 8 mg/dL (6-20); Calcium 9.4 mg/dL (8.6-10.3); Carbon Dioxide 27 mEq/L (23-29); Chloride 101 mEq/L (98-107); Globulin 3.3 g/dL (2.4-3.5); Glucose 138 mg/dL (70-105); Osmolality,Calculated 285 (280-300); Potassium 3.7 mEq/L (3.5-5.1); Sodium 137 mEq/L (136-145); Total Protein 7.2 g/dL (6.4-8.9); eGFR For Non-African Americans > 60 (> 60)
[2018-04-07] MEDS: Acetaminophen/Aspirin/Caffeine TABLET PO PRN ×2 (02:52→18:15)
[2018-04-07] MEDS ORDERED: Regadenoson 0.4 MG/5 ML SYRINGE IVP ONE (05:26)
[2018-04-07] MEDS ORDERED: Ondansetron 4 MG/2 ML VIAL IVP PRN (06:22)
[2018-04-07] MEDS ORDERED: OXYCODONE Oral CONC 10 MG/0.5 ML ORAL.SYG SL ONE (06:23)
[2018-04-07] MEDS ORDERED: 0.9 % Sodium Chloride 500 ML IVC ONE (06:27)
[2018-04-07] MEDS ORDERED: Ketorolac 30 MG/ML VIAL IVP ONE (08:45)
--- NOTE | 2018-04-07 08:51 | Electrocardiograph Report ---
[address] [place], [place] [address] Test Date: 2018-04-06 Pat Name: Krystle Cervantes Department: [id number] Room: 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
[2018-04-07] MEDS ORDERED: Orphenadrine 60 MG/2 ML VIAL IVP ONE (08:56)
[2018-04-07] MEDS: 0.9 % Sodium Chloride 1,000 ML IVC SCH ×2 (08:58→17:26)
[2018-04-07] MEDS: ALPRAZolam 1 MG TABLET PO PRN ×2 (11:04→21:04)
--- NOTE | 2018-04-07 11:28 | Event Note ---
Date of Encounter: 04/07/18 Time of Encounter: 11:26 - Cardiology Event Note Notes, labs, testing reviewed. Troponins negative, reported no ECG changes. TTE and stress test pending. OF note, patient will be a 2 day stress test. Cardiology will give further recommendations pending stress results.
[2018-04-07] MEDS: Venlafaxine XR (24 HR) 150 MG CAP.ER.24H PO SCH (14:22)
[2018-04-07] MEDS: OXYCODONE Oral CONC 10 MG/0.5 ML ORAL.SYG SL PRN ×2 (14:23→21:02)
[2018-04-07] MEDS: Promethazine 12.5 MG in 0.9 % Sodium Chloride 50 ML IVPB PRN (14:23)
--- NOTE | 2018-04-07 14:42 | Cardiology Consult Note ---
<Sasha Samuels M - Last Filed: 04/07/18 15:22> Date of Encounter: 04/07/18 Time of Encounter: 14:25 Assessment and Plan (1) Chest pain Current Visit: Yes Status: Acute Atypical left sided chest pain, improving s/p 3 nitroglycerin, nitro paste, and morphine in the ER. Cardiac catheterization in 2015 showed 20% occlusion in mid circumflex Echocardiogram December 2016 with EF 65% and no valvular abnormalities Serial troponin <0.03. EKG without ST elevation but showed mild depressions < 1mm in lateral leads Receiving excedrin for migraine. On lipitor and lopresor. Echocardiogram and 2 day stress test results pending. Further recommendations pending results. Qualifiers: Chest pain type: unspecified Qualified Code(s): R07.9 - Chest pain, unspecified (2) Hypertension Current Visit: No Status: Chronic Stable. Continue home medications Qualifiers: Hypertension type: essential hypertension Qualified Code(s): I10 - Essential (primary) hypertension (3) Diabetes mellitus, type 2 Current Visit: No Status: Chronic Management per medicine service. Qualifiers: Diabetes mellitus lobsterman insulin use: without lobsterman use Diabetes mellitus complication status: with neurologic complications Diabetes mellitus complication detail: with polyneuropathy Qualified Code(s): E11.42 - Type 2 diabetes mellitus with diabetic polyneuropathy (4) Migraine Current Visit: Yes Status: Acute Management per Medicine service Qualifiers: Migraine type: without aura Status migrainosus presence: without status migrainosus Intractability: not intractable Qualified Code(s): G43.009 - Migraine without aura, not intractable, without status migrainosus (5) History of tobacco use Current Visit: Yes Status: Chronic Patient quit smoking tobacco 6 months ago. Prior to this she smoked 1 ppd. Continued cessation was encouraged. (6) Obstructive sleep apnea Current Visit: Yes Status: Chronic Patient states her CPAP machine is broken and has not been using it lately. Discussed the importance of using CPAP at night. Discussion w patient/family: The assessment and plan as outlined above was discussed with the patient and/or family members who expressed understanding and agreement. All questions were answered. Thank you for involving us in the care of your patient. Please call with any questions. History of Present Illness Consult date: 04/07/18 Requesting physician: Diane Mann Consult reason: atypical chest pain Chief complaint: chest pain History of present illness: Ms. Cervantes is a 48 year old female with past medical history including diabetes mellitus, hyperlipidemia, hypertension, Coronary artery disease with 20 % mid circumflex occlusion on 2016 catheterization, previous pulmonary embolism , obstructive sleep apnea, who presents yesterday to the ED with chief complaint of chest pain. Patient states while she was leaving her neurologist's office and walking to the pharmacy, she suddenly developed sharp and tight left sided chest pain that radiates into her back and down her left arm. The pain improved with rest and worsened with exertion. She complains of associated shortness of breath, lightheadedness, nausea but no vomiting, and denies diaphoresis. States she has also been increasing getting more tired and constipated the past five days. She also notes intermittent swelling of hands and feet that she has had for years. Denies any new swelling. She went to the ER for further evaluation. She states she has had similar episodes of chest pain in the past while at work, but this current episode was more intense and lasted longer than her prior. In the ER she received three nitroglycerin with chest pain improving after the second. She also received topical nitroglycerin, aspirin and morphine. D-dimer was elevated and CTA of the chest negative for pulmonary embolism. Initial troponin <0.03 and EKG with sinus rhythm with mild depressions in the lateral leads, new since prior. She was admitted for further workup. Serial troponin have been negative and stress test and echocardiogram are pending. Cardiolgoy consulted for further recommendations of atypical chest pain. At present, the patient states she is continuing to have constant left sided chest pain. She states it is much less than yesterday but has not completely resolved. Denies nausea, shortness of breath, or lightheadedness at this time. Past Med Surg Social Fam HX - Past Medical History Medical history: arthritis, asthma, CHF, COPD, coronary artery disease, diabetes , GERD, hyperlipidemia, hypertension, migraine, pulmonary embolus Additional medical history: home oxygen 2LNC Psychiatric history: anxiety, depression - Past Surgical History Surgical History: orthopedic, other Additional surgical history: R rotator cuff right. R knee surgery - Social History Smoking Status: Former smoker Smokeless Tobacco Status: No Alcohol use: none Drug use: none - Family History Mother Adopted: No Age: 74 Family Member Ethnicity: Non- Living Status: Still Living Hx Family Cardiac Disorders: Yes Hx Family Respiratory Disorders: No Hx Family Cancer: No Hx Family GI Disorders: No Hx Family Endocrine Disorder: Yes (DM) Hx Family Neuromuscular Disorders: No Hx Family Neurologic Disorders: No Hx Family HEENT Disorders: No Hx Family Autoimmune Disorders: Yes Hx Family Psychosocial Disorders: Yes (depression) Father Adopted: No Age: 76 Family Member Ethnicity: Non- Living Status: Still Living Hx Family Cardiac Disorders: Yes (HTN) Hx Family Respiratory Disorders: No Hx Family Cancer: No Hx Family GI Disorders: No Hx Family Endocrine Disorder: Yes (DM) Hx Family Neuromuscular Disorders: Yes (ALZHEIMERS) Hx Family Neurologic Disorders: Yes (Alzheimers) Hx Family HEENT Disorders: No Hx Family Autoimmune Disorders: No Medications and Allergies Atorvastatin [Lipitor] 40 mg PO HS #30 tablet 05/12/16 [Rx] Buspirone HCl [Buspar] 10 mg PO TID 10/28/16 [History] Venlafaxine XR (24 HR) [Effexor Xr] 300 mg PO DAILY 10/28/16 [History] ALPRAZolam [Xanax 1 MG Tablet] 1 mg PO TID PRN 01/06/17 [History] metFORMIN [Glucophage] 1,000 mg PO BID 02/09/17 [History] Metoprolol [Lopressor] 25 mg PO BID 04/24/17 [History] Omeprazole [PriLOSEC] 40 mg PO DAILY 04/24/17 [History] Benztropine [Cogentin] 0.5 mg PO DAILY 11/16/17 [History] Fexofenadine HCl 180 mg PO HS 11/16/17 [History] Glimepiride [Amaryl] 1 mg PO DAILY 11/16/17 [History] Lidocaine Patch [Lidoderm 5% patch] 1 each TP DAILY #7 adh..patch 01/05/18 [Rx] Trazodone HCl 150 mg PO HS 04/06/18 [History] 3 Allergy/AdvReac Type Severity Reaction Status Date / Time clindamycin Allergy Hives Verified 02/01/18 20:44 codeine Allergy Difficulty Verified 02/01/18 20:44 Breathing NSAIDS (Non-Steroidal Allergy Difficulty Verified 02/01/18 20:44 Anti-Inflamma Breathing ketorolac [From Toradol] AdvReac Migraine Verified 02/01/18 20:44 tramadol AdvReac Vomiting Verified 02/01/18 20:44 All Systems Review: The remainder of the systems were reviewed and are negative - Constitutional Constitutional: fatigue, headache(s), no weakness - EENT Eyes: no blurred vision, no loss of vision Nose, mouth and throat: no dysphagia, no sore throat - Cardiovascular Cardiovascular: chest pain with exertion, dyspnea on exertion, lightheadedness, no diaphoresis, no palpitations - Respiratory Respiratory: no cough, no wheezing - Gastrointestinal Gastrointestinal: nausea, other (constipation), no abdominal pain, no diarrhea - Genitourinary Genitourinary: no dysuria - Musculoskeletal Musculoskeletal: no muscle weakness, no myalgias - Neurological Neurological: no dizziness, no loss of vision Physical Examination Vital Signs, Last 4 Hours Temp Pulse Resp BP Pulse Ox 04/07/18 10:52 98.0 F 78 16 130/64 90 General: Conversant, No Apparent Distress HEENT: Atraumatic, Normocephaly Neck: No JVD, Normal carotid pulses Cardiac: Reg Rate and Rhythm, No Murmur Lungs: Normal Breath Sounds, No Wheeze, Rales, Rhonchi Neuro: Alert and responsive, No focal deficits noted Abdomen: Soft, Non-Tender Skin: No rashes noted on visualized skin, Other (ecchymosis over left elbow) Musculoskeletal: No Chest Wall Tenderness Extremities: No Cyanosis, No Edema, Normal Pulses (bilateral radial pulses equal ) Results 04/07/18 01:13 04/07/18 01:13 Lab Results 04/07/18 04/07/18 04/07/18 01:13 01:13 01:13 WBC 8.0 Hgb 10.8 L Hct 34.8 L Plt Count 306 Sodium 137 Potassium 3.7 Chloride 101 Carbon Dioxide 27 BUN 8 Creatinine 0.83 Glucose 138 H Calcium 9.4 Total Bilirubin 0.5 AST 21 ALT 35 Alkaline Phosphatase 128 H Troponin I < 0.03 04/07/18 06:14 WBC Hgb Hct Plt Count Sodium Potassium Chloride Carbon Dioxide BUN Creatinine Glucose Calcium Total Bilirubin AST ALT Alkaline Phosphatase Troponin I < 0.03 - Imaging and Cardiology Chest Xray: report reviewed, image reviewed Stress Test: pending Echo: pending - EKG Interpretation EKG results cardiology: personally reviewed (EKG from 04/06/10 at 16:51 reviewed shows sinus rhythm with rate 93, ND interval 180. QT interval 362. QTc interval 451. Low voltage noted in the precordial leads. Mildl depression in the lateral leads, but no ST elevations. No evidence of WPW or brugada syndrome. ) Consult Discharge Plan - Plan Referrals: Dulce Bradford MD [Primary Care Provider] - <Srini Avila - Last Filed: 04/07/18 21:01> Date of Encounter: 04/07/18 Time of Encounter: 17:00 - Attending Attestation I examined this patient and my medical decision-making was reviewed with the Resident Physician. I agree with the documented findings, disposition and treatment plan as described except to the extent set forth below. CC: Chest pain HPI: Pt presents for evaluation of sudden onset of left sided chest pain, described as 11/10, which radiated into her back and left arm. She reports associated shortness of breath, lightheadedness and nausea. She did not take her sl ntg, but did receive three sequential sl ntg in ER with improvement in chest pain from 11 to 5/10. She notes chest pain continues to elizabeth. She now complains of severe migraine cephalgia, not responding to oral narcotics and is requesting IV tx. She has hx of non cardiac chest pain, underwent diagnostic catheterization in 2016 which was essentially normal. sequential troponins and EKGs are unchanged. PMH: reviewed ROS; reviewed PE: pt seen and examined, agree with findings as documented IMP/Plan 1. Chest pain, atypical, stress imaging ordered, await result. Symptoms most consistent with drug seeking behaviour 2. Migraine cephalgia: pt reports headache 10/10, however does not demonstrate light or sound sensitivity, and is requesting IV narcotic tx for headache. 3. DM: not well controlled due to non-compliance with dietary and exercise recommendations. 4. Morbid obesity: has been referred for consideration of gastric bypass, has declined due to concern she would have to discontinue oral narcotic analgesia for prolonged period before and after surgical intervention Will follow with you, await stress imaging, continue to evaluate for non cardiac causes of chest pain. Assessment and Plan Discussion w patient/family: The assessment and plan as outlined above was discussed with the patient and/or family members who expressed understanding and agreement. All questions were answered. Thank you for involving us in the care of your patient. Please call with any questions. History of Present Illness History of present illness: Ms. Cervantes is a 48 year old female All Systems Review: The remainder of the systems were reviewed and are negative Physical Examination Vital Signs, Last 4 Hours Temp Pulse Resp BP Pulse Ox 04/07/18 20:09 97.8 F 80 20 114/72 94 Results 04/07/18 01:13 04/07/18 01:13 Lab Results 04/07/18 04/07/18 04/07/18 01:13 01:13 01:13 WBC 8.0 Hgb 10.8 L Hct 34.8 L Plt Count 306 Sodium 137 Potassium 3.7 Chloride 101 Carbon Dioxide 27 BUN 8 Creatinine 0.83 Glucose 138 H Calcium 9.4 Total Bilirubin 0.5 AST 21 ALT 35 Alkaline Phosphatase 128 H Troponin I < 0.03 04/07/18 06:14 WBC Hgb Hct Plt Count Sodium Potassium Chloride Carbon Dioxide BUN Creatinine Glucose Calcium Total Bilirubin AST ALT Alkaline Phosphatase Troponin I < 0.03
--- NOTE | 2018-04-07 19:53 | Event Note ---
Date of Encounter: 04/07/18 Time of Encounter: 18:00 Pt admitted earlier today with chest pain and headache. Stress test ordered - 2 day. Pt requesting multiple pain meds. Continue orders as per H&P.
[2018-04-07] MEDS ORDERED: Loratadine 10 MG TABLET PO SCH (21:00)
[2018-04-07] MEDS ORDERED: traZODone 50 MG TABLET PO SCH (21:00)
[2018-04-08] MEDS: Promethazine 12.5 MG in 0.9 % Sodium Chloride 50 ML IVPB PRN (00:51)
[2018-04-08] MEDS: OXYCODONE Oral CONC 10 MG/0.5 ML ORAL.SYG SL PRN ×3 (02:57→13:56)
[2018-04-08] MEDS: 0.9 % Sodium Chloride 1,000 ML IVC SCH ×2 (03:00→12:38)
[2018-04-08] MEDS: ALPRAZolam 1 MG TABLET PO PRN ×2 (05:08→15:48)
[2018-04-08] MEDS: *HR* Heparin 5,000 UNIT/ML VIAL SQ SCH ×2 (05:08→13:55)
[2018-04-08] MEDS ORDERED: Regadenoson 0.4 MG/5 ML SYRINGE IVP ONE (05:48)
[2018-04-08] MEDS: Insulin LISPRO 300 UNITS/3 ML VIAL SQ SCH ×2 (09:15→12:34)
[2018-04-08] MEDS: Venlafaxine XR (24 HR) 150 MG CAP.ER.24H PO SCH (10:13)
--- NOTE | 2018-04-08 10:48 | Cardiology Progress Note ---
Date of Encounter: 04/08/18 Time of Encounter: 10:30 Assessment and Plan (1) Chest pain Current Visit: Yes Status: Acute Atypical. Improved. Do not suspect cardiac related. Cardiac catheterization in 2016 showed 20% occlusion in mid circumflex Serial troponin <0.03 and EKG without evidence of acute ischemia Echocardiogram with LVEF 60-65%, mild left ventricular diastolic dysfunction, mildly dilated right ventricle with normal function, mild aortic regurgitation. 2 days stress test completed today, negative for ischemia or infarct. Receiving excedrin for migraine. On lipitor and lopressor. Lifestyle modifications discussed with patient. Qualifiers: Chest pain type: unspecified Qualified Code(s): R07.9 - Chest pain, unspecified (2) Hypertension Current Visit: No Status: Chronic Stable. Continue with home medications Qualifiers: Hypertension type: essential hypertension Qualified Code(s): I10 - Essential (primary) hypertension (3) Diabetes mellitus, type 2 Current Visit: No Status: Chronic Management per medicine service. Qualifiers: Diabetes mellitus dining room coordinator insulin use: without dining room coordinator use Diabetes mellitus complication status: with neurologic complications Diabetes mellitus complication detail: with polyneuropathy Qualified Code(s): E11.42 - Type 2 diabetes mellitus with diabetic polyneuropathy (4) Migraine Current Visit: Yes Status: Acute On excedrin. Patient requesting IV pain medications. Management per Medicine service Qualifiers: Migraine type: without aura Status migrainosus presence: without status migrainosus Intractability: not intractable Qualified Code(s): G43.009 - Migraine without aura, not intractable, without status migrainosus (5) History of tobacco use Current Visit: Yes Status: Chronic continued cessation encouraged. (6) Obstructive sleep apnea Current Visit: Yes Status: Chronic Patient has broken CPAP machine. Discussed the importance of using CPAP at night. Discussion w patient/family: The assessment and plan as outlined above was discussed with the patient and/or family members who expressed understanding and agreement. All questions were answered. Thank you for involving us in the care of your patient. Please call with any questions. Subjective Principal diagnosis: Atypical chest pain Interval history: Patient states she developed left sided chest pressure during the stress test this morning that is now improving. Asking for more medication for her headache. Denies shortness of breath, dizziness, worsening lower extremity swelling. Objective Vital Signs, Last 4 Hours Temp Pulse Resp BP Pulse Ox 04/08/18 07:18 98.0 F 69 16 127/62 93 General: Conversant, No Apparent Distress HEENT: Atraumatic, Normocephaly Neck: No JVD, Normal carotid pulses Cardiac: Reg Rate and Rhythm, Normal S1 and S2, No Murmur Lungs: Normal Breath Sounds, No Wheeze, Rales, Rhonchi Neuro: Alert and responsive, No focal deficits noted Abdomen: Soft, Non-Tender Skin: No rashes noted on visualized skin Musculoskeletal: No Chest Wall Tenderness Extremities: No Edema, Normal Pulses (radial pulses equal bilaterally) Results 04/07/18 01:13 04/07/18 01:13 - Imaging and Cardiology Stress Test: report reviewed Consult Discharge Plan - Plan Referrals: Dulce Bradford MD [Primary Care Provider] -
[2018-04-08 11:30] VITALS: BP 116/76
--- NOTE | 2018-04-08 16:01 | Discharge Summary ---
<Leonel Prieto - Last Filed: 04/08/18 18:10> - NOTES TO OUTPATIENT PROVIDER Notes to Outpatient Provider: Patient presented with chest pain. Stress test negative. She has concerns about possible gallbladder pain which was not investigated at this admission. Orders not resulted at time of discharge: Pending orders 04/07/18 02:06 NM pearl perf SPECT multi [NM] Routine Date of Encounter: 04/08/18 Time of Encounter: 15:56 - Discharge Diagnosis (1) Hypertension Priority: Secondary Status: Chronic Qualifiers: Hypertension type: essential hypertension Qualified Code(s): I10 - Essential (primary) hypertension (2) Diabetes mellitus, type 2 Priority: Secondary Status: Chronic Qualifiers: Diabetes mellitus long goods drier insulin use: without jail use Diabetes mellitus complication status: with neurologic complications Diabetes mellitus complication detail: with polyneuropathy Qualified Code(s): E11.42 - Type 2 diabetes mellitus with diabetic polyneuropathy (3) Chest pain Priority: Primary Status: Acute Qualifiers: Chest pain type: unspecified Qualified Code(s): R07.9 - Chest pain, unspecified (4) Migraine Priority: Secondary Status: Chronic Qualifiers: Migraine type: without aura Status migrainosus presence: without status migrainosus Intractability: not intractable Qualified Code(s): G43.009 - Migraine without aura, not intractable, without status migrainosus Hospital course: Ms. Cervantes is a 48 year old female with past medical history of asthma, CHF, COPD, CAD, diabetes, GERD, hyperlipidemia, hypertension, pulmonary embolism presented emergency department with complaint of chest pain. Pain started 1 day prior to presentation after she went to see her neurologist for possible migraine evaluation. Pain was left-sided which she describes a clenching feelings in her chest which radiated to the back and got worse with ambulation. Symptoms did partially resolve with rest. Patient did report improvement of symptoms after second dose of nitroglycerin in the emergency department. On presentation to the emergency department, vital signs significant for mild tachycardia at 97, otherwise unremarkable. Laboratory results were significant for mildly elevated d-dimer at 659, otherwise unremarkable including negative troponin 3. Chest x-ray was obtained and was unremarkable and CTA was obtained which did not show evidence of pulmonary embolism. EKG showed no changes. Cardiology was consulted at that time and she was admitted to the hospital for further evaluation of chest pain. During course possible stay, patient's symptoms did resolve. She did undergo a 2 day stress tests which was negative for ischemia or infarct, gated ejection fraction greater than 70%. At time of discharge, patient's vitals and lab results were back at baseline her pain has resolved. She is eager to return home at this time. She will be instructed to follow up with her primary care physician within 3-5 days as well as cardiology. She will be discharged home in stable medical condition. Discharge discussed with: patient, nurse - Time Spent with Patient Total time spent providing and/or coordinating discharge services: - Discharge Medications Home Medications: Atorvastatin [Lipitor] 40 mg PO HS #30 tablet 05/12/16 [Rx] Buspirone HCl [Buspar] 10 mg PO TID 10/28/16 [History] Venlafaxine XR (24 HR) [Effexor Xr] 300 mg PO DAILY 10/28/16 [History] ALPRAZolam [Xanax 1 MG Tablet] 1 mg PO TID PRN 01/06/17 [History] metFORMIN [Glucophage] 1,000 mg PO BID 02/09/17 [History] Metoprolol [Lopressor] 25 mg PO BID 04/24/17 [History] Omeprazole [PriLOSEC] 40 mg PO DAILY 04/24/17 [History] Benztropine [Cogentin] 0.5 mg PO DAILY 11/16/17 [History] Fexofenadine HCl 180 mg PO HS 11/16/17 [History] Glimepiride [Amaryl] 1 mg PO DAILY 11/16/17 [History] Lidocaine Patch [Lidoderm 5% patch] 1 each TP DAILY #7 adh..patch 01/05/18 [Rx] Trazodone HCl 150 mg PO HS 04/06/18 [History] Allergies/Adverse Reactions: 3 Allergy/AdvReac Type Severity Reaction Status Date / Time clindamycin Allergy Hives Verified 02/01/18 20:44 codeine Allergy Difficulty Verified 02/01/18 20:44 Breathing NSAIDS (Non-Steroidal Allergy Difficulty Verified 02/01/18 20:44 Anti-Inflamma Breathing ketorolac [From Toradol] AdvReac Migraine Verified 02/01/18 20:44 tramadol AdvReac Vomiting Verified 02/01/18 20:44 Date of admission: 04/06/18 22:08 Primary care physician: Dulce Bradford MD Consults: 04/07/18 01:11 Consult to Pastoral Services [CONS] Routine Comment: 04/07/18 06:52 Consult to Cardiology [CONS] Routine Comment: Consulting Provider: Katherine Arnold Reason for Consult: Atypical chest pain in the absence of EKG and laboratory findings. Patient remains symptomatic. Call Completed: No Discharging clinician: Leonel Prieto Anticipated date of discharge: 04/08/18 - Constitutional Vitals: Temp Pulse Resp BP Pulse Ox 97.7 F 70 16 116/76 90 04/08/18 11:28 04/08/18 11:28 04/08/18 11:28 04/08/18 11:28 04/08/18 11:28 Exam: Gen.: Vitals noted. No acute distress. AAOx3, obese HEENT: PERRL/EOMI, oropharynx clear, Normocephalic, atraumatic, MMM Cardiac: RRR, no murmur, +S1/S2 Pulmonary: CTA bilaterally, no wheezes, rales or rhonchi, equal chest expansion Abdomen: soft, nontender MSK: ROM intact, no joint swelling noted Extremities: no BLE edema, nontender calf, no cyanosis or clubbing Neuro: A&Ox3, moves all extremities, no focal deficits Psych: Appropriate mood and behavior - Patient Status Disposition: Home, Self-Care Condition: Good Functional capacity at discharge: independent ambulation Overall status at discharge: patient is back to baseline - Discharge Instructions Instructions: Chest Pain (DC) Follow Up With: Dulce Bradford MD [Primary Care Provider] - 04/13/18 12:00 pm Additional Instructions: Please follow up with your primary care provider within 5-7 days. Take all medications as prescribed. Return to the emergency room if your symptoms return or worsen. - Diet and Activity Activity: increase activity as tolerated, resume usual activities as tolerated Diet: diabetic diet <Jose Choi - Last Filed: 04/08/18 18:59> Orders not resulted at time of discharge: Pending orders 04/07/18 02:06 NM pearl perf SPECT multi [NM] Routine Date of Encounter: 04/08/18 - Discharge Diagnosis (1) Hypertension Status: Chronic Qualifiers: Hypertension type: essential hypertension Qualified Code(s): I10 - Essential (primary) hypertension (2) Diabetes mellitus, type 2 Status: Chronic Qualifiers: Diabetes mellitus long goods drier insulin use: without jail use Diabetes mellitus complication status: with neurologic complications Diabetes mellitus complication detail: with polyneuropathy Qualified Code(s): E11.42 - Type 2 diabetes mellitus with diabetic polyneuropathy (3) Chest pain Status: Ruled-out Qualifiers: Chest pain type: chest pain due to myocardial ischemia Ischemic chest pain type: unstable angina pectoris Qualified Code(s): I20.0 - Unstable angina (4) Migraine Status: Chronic Qualifiers: Migraine type: without aura Status migrainosus presence: without status migrainosus Intractability: not intractable Qualified Code(s): G43.009 - Migraine without aura, not intractable, without status migrainosus (5) Morbid obesity Priority: Secondary Status: Chronic Hospital course: Ms. Cervantes is a 48 year old female - Time Spent with Patient Total time spent providing and/or coordinating discharge services: Date of admission: 04/06/18 22:08 Primary care physician: Dulce Bradford MD Consults: 04/07/18 01:11 Consult to Pastoral Services [CONS] Routine Comment: 04/07/18 06:52 Consult to Cardiology [CONS] Routine Comment: Consulting Provider: Cardiology Catalina Reason for Consult: Atypical chest pain in the absence of EKG and laboratory findings. Patient remains symptomatic. Call Completed: No - Constitutional Vitals: Temp Pulse Resp BP Pulse Ox 97.7 F 70 16 116/76 90 04/08/18 11:28 04/08/18 11:28 04/08/18 11:28 04/08/18 11:28 04/08/18 11:28 - Attending Attestation I examined this patient and my medical decision-making was reviewed with the Resident Physician on 04/08/18. I agree with the documented findings, disposition and treatment plan as described except to the extent set forth below. Ms Cervantes has been in observation for chest pain. Her stress test is negative and she is feeling better. She is afebrile and ready for discharge home. Exam Alert Comfortable Mucus membranes moist Heart reg No wheeze abd soft Plan D/C home today.
--- NOTE | 2018-04-10 11:07 | Electrocardiograph Report ---
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
--- NOTE | 2018-04-11 17:00 | Electrocardiograph Report ---
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
== END 2018-04-08 16:33 | disposition home or self-care (01) ==
LOC: EMEROOARM 16:32 → 3NENU 16:32 → SUATTDRO 22:08 → 3NENU 04-07 00:31
PROVIDERS: ADMIT Internal Medicine; ATTEND Internal Medicine

== ENCOUNTER 2019-06-20 20:00 | Observation (INO) ==
[2019-06-21] MEDS ORDERED: Morphine Sulfate 2 MG/ML SYRINGE IVP ONE ×2 (02:06→08:26)
[2019-06-21] MEDS ORDERED: Acetaminophen 325 MG TABLET PO ONE (02:07)
[2019-06-21 02:51] LABS: Basophils % 0.4 %; Eosinophils # 0.2 K/mcL (0.0-0.6); Eosinophils % 1.5 %; Hematocrit 32.4 % (35.3-44.9); Hemoglobin 10.6 g/dL (11.5-15.4); Immature Granulocytes % 0.5 % (0-4); Lymphocytes # 3.9 K/mcL (0.6-4.6); Mean Corpuscular HGB Conc 32.7 g/dL (31.6-35.5); Mean Corpuscular Hemoglobin 29.1 pg (28.0-33.3); Mean Platelet Volume 9.9 fL (9.4-12.4); Monocytes # 0.5 K/mcL (0.0-1.3); Monocytes % 5.4 %; Neutrophils # 5.3 K/mcL (1.6-8.9); Platelet Count 321 K/mcL (140-400); Red Blood Count 3.64 M/mcL (3.82-4.97); Red Cell Distribution Width 15.4 % (11.5-14.5); Segmented Neutrophils % 53.2 %; White Blood Count 9.9 K/mcL (4.3-11.1)
[2019-06-21] MEDS ORDERED: Dextrose Gel 15 GM/37.5 ML TUBE PO PRN ×2 (03:03)
[2019-06-21] MEDS ORDERED: *HR* Dextrose 50 % in Water (Syg) 50 ML SYRINGE IVP PRN (03:03)
[2019-06-21] MEDS ORDERED: D5% in Water 1,000 ML IVC PRN (03:03)
[2019-06-21] MEDS ORDERED: Naloxone 0.4 MG/ML INJ IVP PRN (03:08)
[2019-06-21 03:14] LABS: Alanine Aminotransferase 15 Units/L (7-52); Albumin 3.6 g/dL (3.5-5.7); Albumin/Globulin Ratio 1.2 (1.1-2.2); Alkaline Phosphatase 106 Units/L (34-104); Aspartate Amino Transferase 12 Units/L (13-39); BUN/Creatinine Ratio 18 (6-26); Bilirubin,Total 0.3 mg/dL (0.3-1.0); Blood Urea Nitrogen 27 mg/dL (6-20); Calcium 8.6 mg/dL (8.6-10.3); Carbon Dioxide 24 mEq/L (23-29); Chloride 104 mEq/L (98-107); Globulin 2.9 g/dL (2.4-3.5); Glucose 118 mg/dL (70-105); Osmolality,Calculated 288 (280-300); Potassium 4.1 mEq/L (3.5-5.1); Sodium 136 mEq/L (136-145); Total Protein 6.5 g/dL (6.4-8.9); eGFR For African Americans 43 (> 60); eGFR For Non-African Americans 36 (> 60)
[2019-06-21] MEDS: Levalbuterol Neb 1.25 MG/3 ML IH SCH ×4 (03:48→22:49)
[2019-06-21] MEDS: *HR* Heparin 5,000 UNIT/ML VIAL SQ SCH ×3 (05:28→21:14)
[2019-06-21 05:31] LABS: Chol/HDL Ratio 3.4 (0-4.9); Cholesterol 121 mg/dL (< 200); HDL Cholesterol 36 mg/dL (40-59); LDL Cholesterol,Calculated 49 mg/dL (0-99); Magnesium 1.2 mg/dL (1.6-2.6); Triglycerides 180 mg/dL (< 150)
[2019-06-21 05:33] LABS: Troponin I < 0.03 ng/mL (< 0.04)
[2019-06-21 05:39] LABS: Adenovirus Not Detected (Not Detect); Bordetella Pertussis Not Detected (Not Detect); Chlamydophila pneumoniae Not Detected (Not Detect); Coronavirus 229E Not Detected (Not Detect); Coronavirus HKU1 Not Detected (Not Detect); Coronavirus NL63 Not Detected (Not Detect); Coronavirus OC43 Not Detected (Not Detect); Human Metapneumovirus Not Detected (Not Detect); Human Rhinovirus/Enterovirus Not Detected (Not Detect); Influenza A Subtype 2009 H1 Not Detected (Not Detect); Influenza A Untypeable Not Detected (Not Detect); Influenza B Not Detected (Not Detect); Mycoplasma pneumoniae Not Detected (Not Detect); Parainfluenza Virus 1 Not Detected (Not Detect); Parainfluenza Virus 2 Not Detected (Not Detect); Parainfluenza Virus 3 Not Detected (Not Detect); Parainfluenza Virus 4 Not Detected (Not Detect); Respiratory Syncytial Virus Not Detected (Not Detect)
[2019-06-21] MEDS ORDERED: 0.9 % Sodium Chloride 1,000 ML IVC SCH (07:45)
[2019-06-21] MEDS ORDERED: Perflutren Lipid Microsphere 1.3 ML in 0.9 % Sodium Chloride 8.7 ML IVP ONE (08:39)
[2019-06-21] MEDS ORDERED: Ondansetron 4 MG/2 ML VIAL IVP ONE (10:08)
[2019-06-21] MEDS: Gabapentin 400 MG CAPSULE PO SCH ×3 (10:30→21:14)
[2019-06-21] MEDS: *HR* Glimepiride 2 MG TABLET PO SCH (10:30)
[2019-06-21] MEDS: Venlafaxine XR (24 HR) 150 MG CAP.ER.24H PO SCH (10:31)
[2019-06-21] MEDS: Aspirin Enteric Coated 81 MG Tablet PO SCH (10:31)
[2019-06-21] MEDS: Insulin LISPRO 300 UNITS/3 ML VIAL SQ SCH ×4 (10:32→21:08)
[2019-06-21] MEDS: Ziprasidone 20 MG CAPSULE PO SCH ×2 (10:36→21:14)
[2019-06-21] MEDS ORDERED: *HR* HYDROcodone/Acet 5/325 mg TABLET PO ONE (15:31)
[2019-06-21] MEDS ORDERED: Nystatin POWDER 30 GM BOTTLE TP SCH (21:00)
[2019-06-21] MEDS: traZODone 50 MG TABLET PO SCH (21:15)
[2019-06-22] MEDS: Acetaminophen 325 MG TABLET PO PRN ×2 (03:11→14:02)
[2019-06-22] MEDS: Levalbuterol Neb 1.25 MG/3 ML IH SCH ×4 (04:46→22:59)
[2019-06-22] MEDS: *HR* Heparin 5,000 UNIT/ML VIAL SQ SCH ×3 (05:33→22:22)
[2019-06-22 05:55] LABS: Basophils % 0.6 %; Eosinophils # 0.1 K/mcL (0.0-0.6); Eosinophils % 1.6 %; Hematocrit 32.7 % (35.3-44.9); Hematocrit 32.8 % (35.3-44.9); Hemoglobin 10.4 g/dL (11.5-15.4); Hemoglobin 10.6 g/dL (11.5-15.4); Immature Granulocytes % 0.3 % (0-4); Lymphocytes # 2.7 K/mcL (0.6-4.6); Lymphocytes % 41.8 %; Mean Corpuscular HGB Conc 31.7 g/dL (31.6-35.5); Mean Corpuscular HGB Conc 32.4 g/dL (31.6-35.5); Mean Corpuscular Hemoglobin 28.7 pg (28.0-33.3); Mean Corpuscular Hemoglobin 29.2 pg (28.0-33.3); Mean Corpuscular Volume 88.6 fL (83.0-100.0); Mean Corpuscular Volume 92.1 fL (83.0-100.0); Mean Platelet Volume 10.2 fL (9.4-12.4); Monocytes # 0.4 K/mcL (0.0-1.3); Monocytes % 6.6 %; Neutrophils # 3.1 K/mcL (1.6-8.9); Platelet Count 279 K/mcL (140-400); Platelet Count 298 K/mcL (140-400); Red Blood Count 3.56 M/mcL (3.82-4.97); Red Blood Count 3.69 M/mcL (3.82-4.97); Red Cell Distribution Width 15.4 % (11.5-14.5); Red Cell Distribution Width 15.6 % (11.5-14.5); Segmented Neutrophils % 49.1 %; White Blood Count 6.4 K/mcL (4.3-11.1)
[2019-06-22 06:13] LABS: BUN/Creatinine Ratio 12 (6-26); Blood Urea Nitrogen 11 mg/dL (6-20); Calcium 9.4 mg/dL (8.6-10.3); Carbon Dioxide 27 mEq/L (23-29); Chloride 105 mEq/L (98-107); Glucose 115 mg/dL (70-105); Osmolality,Calculated 292 (280-300); Potassium 4.4 mEq/L (3.5-5.1); Sodium 141 mEq/L (136-145); eGFR For African Americans > 60 (> 60); eGFR For Non-African Americans > 60 (> 60)
[2019-06-22] MEDS: Aspirin Enteric Coated 81 MG Tablet PO SCH (07:51)
[2019-06-22] MEDS: Venlafaxine XR (24 HR) 150 MG CAP.ER.24H PO SCH (07:51)
[2019-06-22] MEDS: Ziprasidone 20 MG CAPSULE PO SCH ×2 (07:51→22:21)
[2019-06-22] MEDS: Gabapentin 400 MG CAPSULE PO SCH ×3 (07:51→22:21)
[2019-06-22] MEDS: *HR* Glimepiride 2 MG TABLET PO SCH (07:51)
[2019-06-22] MEDS: Insulin LISPRO 300 UNITS/3 ML VIAL SQ SCH ×4 (07:52→22:22)
[2019-06-22] MEDS ORDERED: Acetaminophen/Butalbital/CaffeineTABLET PO PRN (18:46)
[2019-06-22] MEDS ORDERED: SUMAtriptan succinate 25 MG TABLET PO ONE (21:49)
[2019-06-22] MEDS: traZODone 50 MG TABLET PO SCH (22:21)
[2019-06-23] MEDS: Levalbuterol Neb 1.25 MG/3 ML IH SCH ×3 (04:07→10:16)
[2019-06-23] MEDS ORDERED: Acetaminophen IV 1,000 MG/100 ML INFUS..BTL IVPB ONE (04:16)
[2019-06-23] MEDS: *HR* Heparin 5,000 UNIT/ML VIAL SQ SCH (04:39)
[2019-06-23 06:08] LABS: Hemoglobin 10.8 g/dL (11.5-15.4); Mean Corpuscular HGB Conc 32.7 g/dL (31.6-35.5); Mean Corpuscular Hemoglobin 29.3 pg (28.0-33.3); Mean Corpuscular Volume 89.4 fL (83.0-100.0); Mean Platelet Volume 10.3 fL (9.4-12.4); Platelet Count 304 K/mcL (140-400); Red Blood Count 3.69 M/mcL (3.82-4.97); Red Cell Distribution Width 15.4 % (11.5-14.5); White Blood Count 6.9 K/mcL (4.3-11.1)
[2019-06-23 06:30] LABS: BUN/Creatinine Ratio 8 (6-26); Blood Urea Nitrogen 8 mg/dL (6-20); Calcium 9.5 mg/dL (8.6-10.3); Carbon Dioxide 27 mEq/L (23-29); Chloride 104 mEq/L (98-107); Glucose 121 mg/dL (70-105); Osmolality,Calculated 292 (280-300); Potassium 4.1 mEq/L (3.5-5.1); Sodium 141 mEq/L (136-145); eGFR For African Americans > 60 (> 60); eGFR For Non-African Americans 59 (> 60)
[2019-06-23 07:03] VITALS: BP 110/70
[2019-06-23] MEDS: Insulin LISPRO 300 UNITS/3 ML VIAL SQ SCH (07:28)
[2019-06-23] MEDS: Ziprasidone 20 MG CAPSULE PO SCH (07:46)
[2019-06-23] MEDS: Venlafaxine XR (24 HR) 150 MG CAP.ER.24H PO SCH (07:46)
[2019-06-23] MEDS: *HR* Glimepiride 2 MG TABLET PO SCH (07:46)
[2019-06-23] MEDS: Gabapentin 400 MG CAPSULE PO SCH (07:47)
[2019-06-23] MEDS: Aspirin Enteric Coated 81 MG Tablet PO SCH (07:48)
[2019-06-23] MEDS ORDERED: Magnesium Oxide 400 MG TABLET PO SCH (09:00)
[2019-06-23 09:05] LABS: Estimated Average Glucose 171 mg/dl
== END 2019-06-23 11:44 | disposition home or self-care (01) ==
LOC: 3BNU
PROVIDERS: ADMIT Internal Medicine; ATTEND Internal Medicine

== ENCOUNTER 2019-07-03 21:11 | Observation (INO) ==
[2019-07-03] MEDS ORDERED: Aspirin 325 MG TABLET PO ONE (21:19)
[2019-07-03 21:44] LABS: Basophils % 0.4 %; Eosinophils # 0.2 K/mcL (0.0-0.6); Eosinophils % 1.8 %; Hematocrit 36.1 % (35.3-44.9); Hemoglobin 12.1 g/dL (11.5-15.4); Immature Granulocytes % 0.2 % (0-4); Lymphocytes # 4.4 K/mcL (0.6-4.6); Lymphocytes % 38.4 %; Mean Corpuscular HGB Conc 33.5 g/dL (31.6-35.5); Mean Corpuscular Hemoglobin 29.6 pg (28.0-33.3); Mean Corpuscular Volume 88.3 fL (83.0-100.0); Mean Platelet Volume 9.9 fL (9.4-12.4); Monocytes # 0.7 K/mcL (0.0-1.3); Monocytes % 6.1 %; Neutrophils # 6.1 K/mcL (1.6-8.9); Platelet Count 423 K/mcL (140-400); Red Blood Count 4.09 M/mcL (3.82-4.97); Red Cell Distribution Width 15.5 % (11.5-14.5); Segmented Neutrophils % 53.1 %; White Blood Count 11.4 K/mcL (4.3-11.1)
[2019-07-03] MEDS ORDERED: Isovue-370 500 ML BOTTLE IVP ONE (21:53)
[2019-07-03 22:08] LABS: BUN/Creatinine Ratio 11 (6-26); Blood Urea Nitrogen 12 mg/dL (6-20); Calcium 9.8 mg/dL (8.6-10.3); Carbon Dioxide 27 mEq/L (23-29); Chloride 100 mEq/L (98-107); Glucose 116 mg/dL (70-105); Osmolality,Calculated 281 (280-300); Potassium 4.1 mEq/L (3.5-5.1); Sodium 135 mEq/L (136-145); eGFR For African Americans > 60 (> 60); eGFR For Non-African Americans 53 (> 60)
[2019-07-03 22:09] LABS: Troponin I < 0.03 ng/mL (< 0.04)
[2019-07-03] MEDS ORDERED: Ondansetron 4 MG/2 ML VIAL IVP ONE (22:51)
[2019-07-03] MEDS ORDERED: Morphine Sulfate 2 MG/ML SYRINGE IVP ONE (22:52)
[2019-07-04] MEDS ORDERED: *HR* LORazepam 2 MG/ML VIAL IVP ONE ×2 (01:57→05:06)
[2019-07-04] MEDS ORDERED: *HR* Promethazine 25 MG/ML VIAL IVP PRN (02:48)
[2019-07-04] MEDS ORDERED: Naloxone 0.4 MG/ML INJ IVP PRN (02:48)
[2019-07-04] MEDS ORDERED: Acetaminophen 325 MG TABLET PO PRN ×2 (02:48→10:00)
[2019-07-04] MEDS ORDERED: *HR* Dextrose 50 % in Water (Syg) 50 ML SYRINGE IVP PRN (02:57)
[2019-07-04] MEDS ORDERED: D5% in Water 1,000 ML IVC PRN (02:57)
[2019-07-04] MEDS ORDERED: Dextrose Gel 15 GM/37.5 ML TUBE PO PRN ×2 (02:57)
[2019-07-04] MEDS ORDERED: Acetaminophen IV 1,000 MG/100 ML INFUS..BTL IVPB ONE (03:43)
[2019-07-04] MEDS ORDERED: Nitroglycerin 0.4 MG TAB.SUBL SL PRN (04:13)
[2019-07-04] MEDS: Insulin LISPRO 300 UNITS/3 ML VIAL SQ SCH ×2 (05:35→12:20)
[2019-07-04 06:16] LABS: Hematocrit 35.3 % (35.3-44.9); Hemoglobin 11.6 g/dL (11.5-15.4); Mean Corpuscular HGB Conc 32.9 g/dL (31.6-35.5); Mean Corpuscular Hemoglobin 29.4 pg (28.0-33.3); Mean Corpuscular Volume 89.4 fL (83.0-100.0); Mean Platelet Volume 10.3 fL (9.4-12.4); Platelet Count 378 K/mcL (140-400); Red Blood Count 3.95 M/mcL (3.82-4.97); Red Cell Distribution Width 15.4 % (11.5-14.5); White Blood Count 8.8 K/mcL (4.3-11.1)
[2019-07-04 06:39] LABS: BUN/Creatinine Ratio 13 (6-26); Blood Urea Nitrogen 13 mg/dL (6-20); Carbon Dioxide 24 mEq/L (23-29); Chloride 100 mEq/L (98-107); Chol/HDL Ratio 3.8 (0-4.9); Cholesterol 159 mg/dL (< 200); Glucose 141 mg/dL (70-105); HDL Cholesterol 42 mg/dL (40-59); LDL Cholesterol,Calculated 79 mg/dL (0-99); Magnesium 1.7 mg/dL (1.6-2.6); Osmolality,Calculated 284 (280-300); Potassium 3.7 mEq/L (3.5-5.1); Sodium 136 mEq/L (136-145); Triglycerides 190 mg/dL (< 150); eGFR For African Americans > 60 (> 60); eGFR For Non-African Americans 56 (> 60)
[2019-07-04] MEDS: Regadenoson 0.4 MG/5 ML SYRINGE IVP ONE ×2 (07:22→12:15)
[2019-07-04] MEDS: *HR* Heparin 5,000 UNIT/ML VIAL SQ SCH ×2 (07:22→13:29)
[2019-07-04] MEDS ORDERED: GlipiZIDE 5 MG TABLET PO SCH (08:00)
[2019-07-04] MEDS ORDERED: *HR* LORazepam 0.5 MG TABLET PO PRN (13:16)
[2019-07-04 14:28] VITALS: BP 128/82
[2019-07-04] MEDS ORDERED: Gabapentin 400 MG CAPSULE PO SCH (21:00)
[2019-07-04] MEDS ORDERED: traZODone 50 MG TABLET PO SCH (21:00)
[2019-07-04] MEDS ORDERED: Ziprasidone 20 MG CAPSULE PO SCH (21:00)
[2019-07-05] MEDS ORDERED: Aspirin Enteric Coated 81 MG Tablet PO SCH (09:00)
[2019-07-05] MEDS ORDERED: Venlafaxine XR (24 HR) 150 MG CAP.ER.24H PO SCH (09:00)
== END 2019-07-04 15:18 | disposition home or self-care (01) ==
LOC: EMEROOARM 21:11 → 3BNU 21:11 → SUATTDRO 23:29 → CDU 23:33 → 3BNU 07-04 12:54
PROVIDERS: ADMIT Student in an Organized Health Care Education/Training Program; ATTEND Internal Medicine

== ENCOUNTER 2019-08-18 20:38 | Observation (INO) ==
[2019-08-18] MEDS ORDERED: Ondansetron 4 MG/2 ML VIAL IVP ONE (20:58)
[2019-08-18] MEDS ORDERED: 0.9 % Sodium Chloride 1,000 ML IVC ONE (20:58)
[2019-08-18] MEDS ORDERED: Aspirin 325 MG TABLET PO ONE (21:01)
[2019-08-18] MEDS ORDERED: Nitroglycerin 0.4 MG TAB.SUBL SL STA (21:04)
[2019-08-18 21:08] LABS: Basophils % 0.3 %; Eosinophils # 0.2 K/mcL (0.0-0.6); Eosinophils % 1.5 %; Hemoglobin 11.8 g/dL (11.5-15.4); Immature Granulocytes % 0.4 % (0-4); Lymphocytes # 3.9 K/mcL (0.6-4.6); Lymphocytes % 30.1 %; Mean Corpuscular HGB Conc 31.9 g/dL (31.6-35.5); Mean Corpuscular Hemoglobin 29.3 pg (28.0-33.3); Mean Corpuscular Volume 91.8 fL (83.0-100.0); Mean Platelet Volume 9.8 fL (9.4-12.4); Monocytes # 0.7 K/mcL (0.0-1.3); Monocytes % 5.3 %; Neutrophils # 8.1 K/mcL (1.6-8.9); Platelet Count 392 K/mcL (140-400); Red Blood Count 4.03 M/mcL (3.82-4.97); Red Cell Distribution Width 14.2 % (11.5-14.5); Segmented Neutrophils % 62.4 %; White Blood Count 12.9 K/mcL (4.3-11.1)
[2019-08-18] MEDS ORDERED: Metoclopramide 10 MG/2 ML VIAL IVP STA (21:26)
[2019-08-18 21:29] LABS: BUN/Creatinine Ratio 15 (6-26); Blood Urea Nitrogen 16 mg/dL (6-20); Calcium 10.3 mg/dL (8.6-10.3); Carbon Dioxide 27 mEq/L (23-29); Chloride 100 mEq/L (98-107); Glucose 103 mg/dL (70-105); Osmolality,Calculated 283 (280-300); Potassium 3.9 mEq/L (3.5-5.1); Sodium 136 mEq/L (136-145); eGFR For African Americans > 60 (> 60); eGFR For Non-African Americans 54 (> 60)
[2019-08-18 21:31] LABS: Troponin I < 0.03 ng/mL (< 0.04)
[2019-08-18] MEDS ORDERED: Ibuprofen 600 MG TABLET PO ONE (23:16)
[2019-08-18] MEDS ORDERED: Naloxone 0.4 MG/ML INJ IVP PRN (23:32)
[2019-08-18] MEDS ORDERED: Morphine Sulfate 2 MG/ML SYRINGE IVP ONE (23:35)
[2019-08-18] MEDS ORDERED: Ondansetron 4 MG/2 ML VIAL IVP PRN (23:37)
[2019-08-19] MEDS: 0.9 % Sodium Chloride 1,000 ML IVC SCH ×2 (00:45→01:22)
[2019-08-19] MEDS: traZODone 50 MG TABLET PO SCH ×2 (01:24→20:15)
[2019-08-19] MEDS: Morphine Sulfate 2 MG/ML SYRINGE IVP PRN ×6 (01:36→21:35)
[2019-08-19] MEDS ORDERED: Dextrose Gel 15 GM/37.5 ML TUBE PO PRN ×2 (03:55)
[2019-08-19] MEDS ORDERED: *HR* Dextrose 50 % in Water (Syg) 50 ML SYRINGE IVP PRN (03:55)
[2019-08-19] MEDS ORDERED: D5% in Water 1,000 ML IVC PRN (03:55)
[2019-08-19] MEDS: *HR* Heparin 5,000 UNIT/ML VIAL SQ SCH ×2 (04:59→15:57)
[2019-08-19] MEDS: Insulin LISPRO 300 UNITS/3 ML VIAL SQ SCH ×2 (05:08→11:43)
[2019-08-19 05:16] LABS: BUN/Creatinine Ratio 15 (6-26); Blood Urea Nitrogen 14 mg/dL (6-20); Calcium 9.1 mg/dL (8.6-10.3); Carbon Dioxide 25 mEq/L (23-29); Chloride 105 mEq/L (98-107); Glucose 94 mg/dL (70-105); Osmolality,Calculated 288 (280-300); Potassium 3.9 mEq/L (3.5-5.1); Sodium 139 mEq/L (136-145); Troponin I < 0.03 ng/mL (< 0.04); eGFR For African Americans > 60 (> 60); eGFR For Non-African Americans > 60 (> 60)
[2019-08-19] MEDS: Venlafaxine XR (24 HR) 150 MG CAP.ER.24H PO SCH ×2 (08:16→20:15)
[2019-08-19] MEDS: amLODIPine 5 MG TABLET PO SCH (13:19)
[2019-08-19] MEDS ORDERED: Acetaminophen 325 MG TABLET PO PRN (16:09)
[2019-08-19] MEDS: Gabapentin 400 MG CAPSULE PO SCH (20:15)
[2019-08-19] MEDS: Ziprasidone 20 MG CAPSULE PO SCH (20:15)
[2019-08-19] MEDS ORDERED: Ketorolac 15 MG/ML VIAL IVP ONE (21:17)
[2019-08-19] MEDS ORDERED: Morphine Sulfate 2 MG/ML SYRINGE IVP PRN (21:32)
[2019-08-20] MEDS: *HR* Heparin 5,000 UNIT/ML VIAL SQ SCH (05:38)
[2019-08-20 06:28] LABS: Hematocrit 32.1 % (35.3-44.9); Mean Corpuscular HGB Conc 31.5 g/dL (31.6-35.5); Mean Corpuscular Hemoglobin 29.5 pg (28.0-33.3); Mean Corpuscular Volume 93.9 fL (83.0-100.0); Mean Platelet Volume 9.9 fL (9.4-12.4); Platelet Count 304 K/mcL (140-400); Red Blood Count 3.42 M/mcL (3.82-4.97); Red Cell Distribution Width 14.1 % (11.5-14.5)
[2019-08-20 06:30] LABS: Hemoglobin 10.1 g/dL (11.5-15.4)
[2019-08-20 06:42] LABS: BUN/Creatinine Ratio 10 (6-26); Blood Urea Nitrogen 8 mg/dL (6-20); Calcium 9.1 mg/dL (8.6-10.3); Carbon Dioxide 28 mEq/L (23-29); Chloride 104 mEq/L (98-107); Glucose 130 mg/dL (70-105); Osmolality,Calculated 288 (280-300); Sodium 139 mEq/L (136-145); eGFR For African Americans > 60 (> 60); eGFR For Non-African Americans > 60 (> 60)
[2019-08-20] MEDS: Gabapentin 400 MG CAPSULE PO SCH (08:57)
[2019-08-20] MEDS: amLODIPine 5 MG TABLET PO SCH (08:58)
[2019-08-20] MEDS: Venlafaxine XR (24 HR) 150 MG CAP.ER.24H PO SCH (08:58)
[2019-08-20] MEDS: Ziprasidone 20 MG CAPSULE PO SCH (08:59)
[2019-08-20] MEDS ORDERED: Aspirin Enteric Coated 81 MG Tablet PO SCH (09:00)
[2019-08-20 15:20] VITALS: BP 132/85
== END 2019-08-20 11:09 | disposition home or self-care (01) ==
LOC: 3BNU 20:38 → EMEROOARM 20:38 → 3BNU 23:44
PROVIDERS: ADMIT Family Medicine; ATTEND Family Medicine

== ENCOUNTER 2020-01-03 12:16 | Observation (INO) ==
[2020-01-03] MEDS ORDERED: *HR* Dextrose 50 % in Water (Vial) 50 ML VIAL IVP PRN (16:15)
[2020-01-03] MEDS ORDERED: D5% in Water 1,000 ML IVC PRN (16:15)
[2020-01-03] MEDS ORDERED: Dextrose Gel 15 GM/37.5 ML TUBE PO PRN ×2 (16:15)
[2020-01-03] MEDS: Insulin LISPRO 300 UNITS/3 ML VIAL SQ SCH (17:22)
[2020-01-03] MEDS ORDERED: Naloxone 0.4 MG/ML INJ IVP PRN (17:41)
[2020-01-03] MEDS: *HR* Heparin 5,000 UNIT/ML VIAL SQ SCH (18:13)
[2020-01-03] MEDS ORDERED: Nitroglycerin 0.4 MG TAB.SUBL SL PRN (18:13)
[2020-01-03] MEDS: Gabapentin 400 MG CAPSULE PO SCH (20:16)
[2020-01-03] MEDS: Ziprasidone 20 MG CAPSULE PO SCH (20:16)
[2020-01-03] MEDS: Venlafaxine XR (24 HR) 150 MG CAP.ER.24H PO SCH (20:16)
[2020-01-03] MEDS ORDERED: traZODone 50 MG TABLET PO SCH (21:00)
[2020-01-03] MEDS ORDERED: Nitroglycerin 1 INCH/GM PACKET TP ONE ×2 (21:49→22:00)
[2020-01-03] MEDS ORDERED: Melatonin 3 MG TABLET PO PRN (22:27)
[2020-01-03] MEDS: Acetaminophen 325 MG TABLET PO PRN (22:31)
[2020-01-04 01:35] LABS: Basophils % 0.4 %; Eosinophils # 0.1 K/mcL (0.0-0.6); Eosinophils % 1.4 %; Hematocrit 31.4 % (35.3-44.9); Hemoglobin 9.8 g/dL (11.5-15.4); Immature Granulocytes % 0.3 % (0-4); Lymphocytes % 41.3 %; Mean Corpuscular HGB Conc 31.2 g/dL (31.6-35.5); Mean Corpuscular Hemoglobin 28.7 pg (28.0-33.3); Mean Corpuscular Volume 92.1 fL (83.0-100.0); Mean Platelet Volume 9.9 fL (9.4-12.4); Monocytes # 0.5 K/mcL (0.0-1.3); Neutrophils # 3.6 K/mcL (1.6-8.9); Platelet Count 294 K/mcL (140-400); Red Blood Count 3.41 M/mcL (3.82-4.97); Red Cell Distribution Width 14.4 % (11.5-14.5); Segmented Neutrophils % 49.6 %; White Blood Count 7.2 K/mcL (4.3-11.1)
[2020-01-04 01:48] LABS: Prothrombin Time 11.5 Seconds (9.4-12.1)
[2020-01-04 01:50] LABS: BUN/Creatinine Ratio 11 (6-26); Blood Urea Nitrogen 11 mg/dL (6-20); Calcium 8.8 mg/dL (8.6-10.3); Carbon Dioxide 26 mEq/L (23-29); Chloride 104 mEq/L (98-107); Glucose 131 mg/dL (70-105); Osmolality,Calculated 287 (280-300); Sodium 138 mEq/L (136-145); eGFR For African Americans > 60 (> 60); eGFR For Non-African Americans 58 (> 60)
[2020-01-04] MEDS: *HR* Heparin 5,000 UNIT/ML VIAL SQ SCH (07:06)
[2020-01-04] MEDS: Insulin LISPRO 300 UNITS/3 ML VIAL SQ SCH ×2 (08:17→12:57)
[2020-01-04] MEDS ORDERED: Aspirin Enteric Coated 81 MG Tablet PO SCH (09:00)
[2020-01-04 10:36] VITALS: BP 122/74
[2020-01-04] MEDS: Acetaminophen 325 MG TABLET PO PRN (12:46)
[2020-01-04] MEDS: Venlafaxine XR (24 HR) 150 MG CAP.ER.24H PO SCH (12:47)
[2020-01-04] MEDS: Ziprasidone 20 MG CAPSULE PO SCH (12:55)
[2020-01-04] MEDS: Gabapentin 400 MG CAPSULE PO SCH (12:55)
[2020-01-04] MEDS ORDERED: SUMAtriptan succinate 50 MG TABLET PO PRN (13:14)
[2020-01-04] MEDS ORDERED: amLODIPine 5 MG TABLET PO SCH (14:30)
== END 2020-01-04 16:51 | disposition home or self-care (01) ==
LOC: 3BNU
PROVIDERS: ADMIT Internal Medicine; ATTEND Internal Medicine